=== PATIENT | female | born 1960 | race Caucasian/White ===

== ENCOUNTER 2017-11-27 13:45 | Emergency (ER) | payer OTHER ==
[~2017-11-27 13:45] MED LIST: ISOVUE-370 76%-LOCM 1 ML ONE
[2017-11-27 14:50] LABS: Bilirubin Negative (Negative); Blood, Urine Negative (Negative); Clarity CLEAR (Clear); Glucose, Urine (Dipstick) Negative (Negative); Leukocyte Negative (Negative); Nitrite Negative (Negative); Protein, Urine (Dipstick) Negative (Neg-Trace); Urobilinogen 0.2 mg/dL (0.2-1.0)
[2017-11-27 14:59] LABS: Specific Gravity, Urine 1.003 (1.002-1.036)
[2017-11-27 15:33] LABS: ALT (SGPT) 55 U/L (8-55); AST (SGOT) 110 U/L (5-34); Albumin 4.1 g/dL (3.5-5.0); Alkaline Phosphatase 91 U/L (40-150); Anion Gap 16 mmol/L (10-20); BUN (Urea Nitrogen) Less than 4 mg/dL (9.8-20.1); Bilirubin, Total 0.4 mg/dL (0.2-1.2); CK (CPK) 129 U/L (29-168); Calc. Creatinine Clearance 0 mL/min (70-130); Carbon Dioxide 19 mmol/L (22-29); Chloride 93 mmol/L (98-107); Estimated GFR-MDRD Greater than 90; Globulin 3.7 g/dL (2.4-3.5); Glucose 108 mg/dL (70-105); Lipase 92 U/L (8-78); Protein, Total 7.8 g/dL (6.0-8.3); Sodium 124 mmol/L (136-145)
--- NOTE | 2017-11-27 15:37 | CT ---
CT BRAIN WITHOUT CONTRAST: Date: 11/27/17 INDICATION: History of trauma with falls and beer ingestion. COMPARISON: None. IMPRESSION: No acute intracranial abnormality is evident. There is mild generalized cerebral and cerebellar atrop hy. COMMENTS: There are vascular calcifications involving the carotid arteries. Mastoid air cells are clear. Parana jeanette sinuses are clear. Skull is intact. POS: [facility]
[2017-11-27] MEDS ORDERED: Ketorolac Tromethamine 30 MG/ML VIAL ONE (15:42)
--- NOTE | 2017-11-27 15:42 | CT ---
CT CERVICAL SPINE WITHOUT CONTRAST: Date: 11/27/17 INDICATION: Fall with neck pain. COMPARISON: None. FINDINGS: No acute fracture or subluxation is evident. There is mild spondylosis of the cervical spine. Prevert ebral soft tissues appear within normal limits. Craniocervical junction appears within normal limits. There is mild heterogeneity of the thyroid gland. There is mild central lobular and paraseptal emphy sema involving the lung apices. IMPRESSION: No acute osseous abnormality. POS: [facility]
[2017-11-27 15:52] LABS: Hemoglobin 14.1 g/dL (12.0-16.0); MDiff Complete? YES; Mean Corpuscular HGB CONC 36.7 g/dL (32.0-36.0); Mean Corpuscular Hemoglobin 37.4 pg (27.0-31.0); Platelet Count 157 thou/uL (130-400); RBC Distribution Width 11.3 % (11.5-14.5); Red Blood Cell (RBC) Count 3.77 mill/uL (4.20-5.40); White Blood Cell (WBC) Count 5.3 thou/uL (4.8-10.8)
[2017-11-27 15:53] LABS: Eosinophils 3 % (0-10); Lymphocytes 61 % (21-51); Monocytes 3 % (0-10); Neutrophil 33 % (42-75); PLT Morphology Comment Appears Adequate
--- NOTE | 2017-11-27 16:02 | CT ---
CT OF THE CHEST WITH IV CONTRAST CT OF THE ABDOMEN AND PELVIS WITH IV CONTRAST 11/27/17 INDICATION: Increased weakness and falls. FINDINGS: There is mild scattered emphysema. No contusion, pleural effusion, or pneumothorax is evident. There is small ground glass pulmonary nodule within the left lower lobe on image 49 of series 3 that is 4 m m in size. There is scattered vascular calcification involving the thoracic aorta and coronary arteries. There is fatty infiltration of the liver. The pancreas demonstrates areas of calcifications within the pancreatic body likely reflecting sequel a of prior pancreatitis. The adrenal glands appear within normal limits. No focal renal lesion is evident. The spleen is patricia l in size. No free fluid is evident. No free fluid is demonstrated. Small fibroid seen within the uterine body. Bladder, rectum, and perir ectal soft tissues are unremarkable. There is scattered diverticula involving the colon. There is diffuse osteopenia. There is scattered degenerative and osteoarthritic changes. No definite acute osseous abnormality is evident. IMPRESSION: No acute abnormality. POS: [facility]
== END 2017-11-27 16:45 | disposition left against medical advice (07) ==
LOC: ERS 13:45
DX: E87.1 Hypo-osmolality and hyponatremia (principal); J44.9 Chronic obstructive pulmonary disease, unspecified; F41.9 Anxiety disorder, unspecified; F32.9 Major depressive disorder, single episode, unspecified; F17.210 Nicotine dependence, cigarettes, uncomplicated; I10 Essential (primary) hypertension; Z86.711 Personal history of pulmonary embolism
CPT/HCPCS: 36415; 70450; 71260; 72125; 74177; 80053; 81003; 82550; 83690; 83880; 85025; 87086; 93005; 96374; J1885

== ENCOUNTER 2018-03-20 21:25 | Emergency (ER) | payer SELFPAY ==
[2018-03-20 22:56] LABS: Bilirubin Negative (Negative); Blood, Urine Negative (Negative); Clarity CLEAR (Clear); Glucose, Urine (Dipstick) Negative (Negative); Leukocyte Negative (Negative); Nitrite Negative (Negative); Protein, Urine (Dipstick) Negative (Neg-Trace); Urobilinogen 0.2 mg/dL (0.2-1.0); pH, Urine 6.5 (5.0-9.0)
[2018-03-20 22:59] LABS: Specific Gravity, Urine 1.002 (1.002-1.036)
[2018-03-20] MEDS ORDERED: Multivitamins, Adult 10 ML, Thiamine HCl 100 MG, Folic Acid 1 MG in Dextrose 5 %-0.45 %... IV SCH (23:00)
--- NOTE | 2018-03-20 23:14 | RAD ---
PORTABLE CHEST: HISTORY: Fall. COMPARISON: 11/10/2016 FINDINGS: Heart size is within normal limits. There are atherosclerotic changes of the aorta. The lungs are c lear of infiltrates. No rib fracture is identified. IMPRESSION: No acute findings. POS: [facility]
--- NOTE | 2018-03-20 23:17 | CT ---
CT BRAIN WITHOUT CONTRAST ENHANCEMENT: HISTORY: Fall with head injury. COMPARISON: 11/27/2017 FINDINGS: There is mild ventricular and sulcal prominence for the patient's age. There are no signs of intrace rebral hemorrhage or extraaxial fluid collections. The mastoid air cells and visualized sinuses are clear. IMPRESSION: No acute intracranial abnormalities. POS: [facility]
[2018-03-20 23:32] LABS: ALT (SGPT) 31 U/L (8-55); AST (SGOT) 89 U/L (5-34); Albumin 3.9 g/dL (3.5-5.0); Alcohol 280 mg/dL (Less than 10); Alkaline Phosphatase 103 U/L (40-150); Anion Gap 15 mmol/L (10-20); BUN (Urea Nitrogen) Less than 4 mg/dL (9.8-20.1); Bilirubin, Total 0.4 mg/dL (0.2-1.2); Calc. Creatinine Clearance 0 mL/min (70-130); Carbon Dioxide 25 mmol/L (22-29); Chloride 98 mmol/L (98-107); Estimated GFR-MDRD Greater than 90; Glucose 106 mg/dL (70-105); Potassium 3.7 mmol/L (3.5-5.1); Protein, Total 7.9 g/dL (6.0-8.3); Sodium 134 mmol/L (136-145)
[2018-03-20 23:34] LABS: Hemoglobin 15.5 g/dL (12.0-16.0); Mean Corpuscular HGB CONC 35.7 g/dL (32.0-36.0); Mean Corpuscular Hemoglobin 36.6 pg (27.0-31.0); Mean Platelet Volume 8.4 fL (7.4-10.4); Platelet Count 167 thou/uL (130-400); Red Blood Cell (RBC) Count 4.23 mill/uL (4.20-5.40); White Blood Cell (WBC) Count 5.8 thou/uL (4.8-10.8)
[2018-03-21 00:18] LABS: Band 3 % (5-11); Eosinophils 5 % (0-10); Lymphocytes 46 % (21-51); MDiff Complete? YES; Monocytes 3 % (0-10); Neutrophil 42 % (42-75); Reactive Lymphocytes 1 % (0-10)
== END 2018-03-21 01:43 | disposition home or self-care (01) ==
LOC: ERS 21:25
DX: F10.10 Alcohol abuse, uncomplicated (principal); R29.6 Repeated falls; I10 Essential (primary) hypertension; J44.9 Chronic obstructive pulmonary disease, unspecified; Z86.711 Personal history of pulmonary embolism; F41.9 Anxiety disorder, unspecified; F32.9 Major depressive disorder, single episode, unspecified; F17.210 Nicotine dependence, cigarettes, uncomplicated; Z79.82 Long term (current) use of aspirin; Z79.899 Other long term (current) drug therapy
CPT/HCPCS: 36415; 70450; 71045; 80053; 80307; 81003; 82140; 85025; 87086; 96360; J3411; J7042

== ENCOUNTER 2018-05-15 13:14 | Inpatient (IN) | payer SELFPAY ==
[2018-05-15] MEDS ORDERED: Ondansetron PF 4 MG/2 ML Vial ONE (13:38)
[2018-05-15] MEDS ORDERED: Multivitamins, Adult 10 ML, Thiamine HCl 100 MG, Folic Acid 1 MG in Dextrose 5 %-0.45 %... IV SCH (13:45)
[2018-05-15 13:52] LABS: #Monocytes 0.5 thou/uL (0.11-0.59); #Neutrophils 9.3 thou/uL (1.40-6.50); %Basophils 0.2 % (0.0-1.0); %Eosinophils 0.1 % (0.0-10.0); %Monocytes 4.9 % (0.0-10.0); %Neutrophils 85.9 % (42.0-75.0); Hemoglobin 15.8 g/dL (12.0-16.0); Mean Corpuscular HGB CONC 33.3 g/dL (32.0-36.0); Mean Corpuscular Hemoglobin 34.6 pg (27.0-31.0); Mean Platelet Volume 7.8 fL (7.4-10.4); Platelet Count 205 thou/uL (130-400); RBC Distribution Width 11.7 % (11.5-14.5); Red Blood Cell (RBC) Count 4.56 mill/uL (4.20-5.40); White Blood Cell (WBC) Count 10.8 thou/uL (4.8-10.8)
[2018-05-15 13:53] LABS: Bilirubin Negative (Negative); Blood, Urine Negative (Negative); Clarity CLEAR (Clear); Glucose, Urine (Dipstick) Negative (Negative); Leukocyte Negative (Negative); Nitrite Negative (Negative); Protein, Urine (Dipstick) Negative (Neg-Trace); Specific Gravity, Urine 1.007 (1.002-1.036); Urobilinogen 0.2 mg/dL (0.2-1.0); pH, Urine 6.5 (5.0-9.0)
[2018-05-15 14:12] LABS: ALT (SGPT) 27 U/L (8-55); AST (SGOT) 83 U/L (5-34); Albumin 3.6 g/dL (3.5-5.0); Alkaline Phosphatase 105 U/L (40-150); Anion Gap 19 mmol/L (10-20); BUN (Urea Nitrogen) 5 mg/dL (9.8-20.1); Bilirubin, Total 0.4 mg/dL (0.2-1.2); Calc. Creatinine Clearance 0 mL/min (70-130); Calcium 8.7 mg/dL (7.8-10.44); Carbon Dioxide 26 mmol/L (22-29); Chloride 87 mmol/L (98-107); Estimated GFR-MDRD Greater than 90; Globulin 3.9 g/dL (2.4-3.5); Glucose 122 mg/dL (70-105); Protein, Total 7.5 g/dL (6.0-8.3); Sodium 129 mmol/L (136-145)
[2018-05-15 14:17] LABS: Potassium 2.6 mmol/L (3.5-5.1)
[2018-05-15] MEDS ORDERED: Potassium Chloride 20 MEQ TAB ONE (14:21)
[2018-05-15 14:26] LABS: Lipase 1342 U/L (8-78)
[2018-05-15] MEDS ORDERED: Lorazepam 2 MG/ML VIAL ONE (14:29)
[2018-05-15] MEDS ORDERED: Morphine 4 MG/ML VIAL ONE (14:40)
[2018-05-15] MEDS ORDERED: Ondansetron ODT 4 MG TAB PO PRN (15:09)
[2018-05-15] MEDS ORDERED: Ondansetron PF 4 MG/2 ML Vial IVP PRN (15:09)
[2018-05-15] MEDS ORDERED: Potassium Chloride 20 MEQ/100 ML PREMIX BAG ONE (15:17)
--- NOTE | 2018-05-15 15:29 | CT ---
CT HEAD NONCONTRAST: INDICATIONS: Emergency exam. Head injury related to fall. COMPARISON: 03/20/2018 FINDINGS: There is mild chronic ischemic disease and generalized parenchymal volume loss. No intracranial hemo rrhage, mass effect, midline shift, or ventriculomegaly. The imaged paranasal sinuses are clear. IMPRESSION: 1. No acute intracranial hemorrhage or mass effect. 2. Mild chronic ischemic disease. 3. [id number] mild global atrophy. Correlate clinically. POS: [facility]
[2018-05-15] MEDS ORDERED: Morphine 2 MG/ML SYRINGE SLOW IVP PRN (15:31)
[2018-05-15] MEDS ORDERED: Lorazepam 2 MG/ML VIAL SLOW IVP PRN (15:37)
--- NOTE | 2018-05-15 15:38 | RAD ---
PORTABLE AP CHEST X-RAY: 05/15/2018 HISTORY: Cough. COMPARISON: 03/20/2018 FINDINGS: The cardiac silhouette and pulmonary vasculature are within normal limits for the portable technique of the study. The lungs remain clear. There has been no interval change from the prior exam. IMPRESSION: No acute cardiopulmonary process. POS: [facility]
[2018-05-15 16:26] VITALS: BMI 18.4
--- NOTE | 2018-05-15 16:41 | HP ---
CHIEF COMPLAINT: Abdominal pain. HISTORY OF PRESENT ILLNESS: This patient is a 58-year-old female with a history of chronic alcoholism and a history of recurrent pancreatitis related to her alcoholism. The patient reports that she was in her usual state of health until this morning around 6:00, when she started experiencing significant abdominal pain, radiating to her back. The patient reports this is similar to the episodes of pancreatitis she has had in the past. She has had vomiting throughout the day today as well, although she has apparently been able to drink 3 beers today before presenting to the hospital around 1:00 to 1:30. She reports her bowels are a bit loose as well. She denies any fever, but feels generally cold. She reports she has not been eating very well of late. She also has some chronic shortness of breath and some dizziness. She reports multiple falls, that she fell 2 to 3 days ago and hit her head in the left supraorbital area. Reports no pain associated with that. REVIEW OF SYSTEMS: All other systems were reviewed and all pertinent positives and negatives noted in the history of present illness. PAST MEDICAL HISTORY: Notable for pancreatitis, COPD, hypertension, pulmonary embolus, alcoholism. PAST SURGICAL HISTORY: None. FAMILY HISTORY: Unknown as the patient is adopted. SOCIAL HISTORY: The patient smokes 1-1/2 packs per day. She drinks 6 to 10 beers per day, although she is not really sure how much she actually drinks and she states it has been a long time since she has gone 24 hours without drinking alcohol. She denies drugs. She is not , but has a significant other named Carmen, who is present with her today. She would like him to be her surrogate decision maker and she is a DNAR. Her PCP is Leyla Grande. ALLERGIES: PENICILLIN. CURRENT MEDICATIONS: 1. Amlodipine 5 mg daily. 2. Doxycycline 100 mg b.i.d. 3. Prednisone 50 mg daily. 4. Excedrin Extra Strength p.r.n. Please note, the patient has only recently been put on doxycycline and prednisone from her PCP for "flu symptoms." PHYSICAL EXAMINATION: VITAL SIGNS: Pulse 93, respirations 16, O2 saturations 93% on room air, BP 134/81, and temperature was 98.2 oral. GENERAL APPEARANCE: The patient appears to be older than her stated age. She has received a dose of Ativan, is very minimally groggy. She is noted to have some resolving ecchymoses over the left eyebrow and possibly some in the right eyelid, and she has a small skin tear on the right forearm. The patient is interactive. She is apparently not over-enthused about being here, participating with the interview portion. She is generally thin. HEENT: PERRL, no OP lesions. NECK: Supple and symmetric without lymphadenopathy. HEART: Regular rate and rhythm without murmurs, gallops, or rubs. LUNGS: Slightly diminished but clear bilaterally without wheezes or rales. She does have a bit of cough, which is rattling at times, but modest. ABDOMEN: Tender across the entire epigastrium to the mid abdomen. There is minimal voluntary guarding. Bowel sounds are present. No masses are noted. EXTREMITIES: Reveal no edema. No cyanosis or clubbing. SKIN: Only notable for the lesions noted above, otherwise, it is warm and dry. LABORATORY DATA: White count 10.8, hemoglobin 15.8, platelets 205. Sodium 129, potassium 2.6, chloride 87, BUN 5, creatinine 0.64, glucose 122, AST 83, ALT is 27, albumin 3.6, lipase is 1342. Urinalysis, negative. Flu screen, negative. Chest x-ray appears generally clear. CT of the head shows chronic atrophy but no acute findings. IMPRESSION AND PLAN: 1. Apparent acute pancreatitis. The patient has a history of recurrent pancreatitis. She has not had a lot in the way of imaging in the past. We will go ahead and get a CT scan to confirm some evidence of the pancreatitis in addition to the elevated lipase. We will keep her n.p.o., give her some IV fluids, and p.r.n. pain medications and antiemetics. 2. Alcoholism. We will provide p.r.n. benzodiazepines for the patient should she develop any withdrawal type symptoms. If that does occur, she may need to be on some scheduled Librium. 3. Hyponatremia, likely due to beer potomania. It is modest and her baseline is typically below normal anyway. We will go ahead and just rehydrate her and see how she responds to that. 4. Hypokalemia. She has received oral and IV supplementation in the ER. We will recheck that in the morning. 5. Macrocytosis secondary to chronic alcohol intake. We will continue with the banana bag, and when she is capable, switch over to p.o. B vitamins. 6. History of hypertension, mild. At this point, we will continue to monitor. 7. History of pulmonary embolus. We will keep her on SCDs until we get the CT abdomen. At some point, she can likely switch over to Lovenox if she is here that long. Job ID: [id number]
--- NOTE | 2018-05-15 18:43 | CT ---
CT ABDOMEN WITHOUT CONTRAST: HISTORY: Pancreatitis. Nausea. Vomiting. FINDINGS: Absence of IV contrast reduces the sensitivity of the exam, particularly for evaluation of solid orga ns. Oral contrast was administered. There is mild infiltrate versus atelectatic change in the right middle lobe. No pleural effusions ar e seen. No calcified gallstones are identified. The liver demonstrates decreased attenuation, melissa red to the spleen, consistent with fatty infiltration. There are calcifications in the pancreas. Pe ripancreatic inflammatory changes are present. No free air or free fluid is seen in the abdomen. There is a 5 mm nephrocalcinosis in the left renal cortex. No calculi are seen in the right kidney o r visualized portions of the ureters on either side. No hydroureteronephrosis is noted on either evelyn e. There are vascular calcifications without evidence of aneurysmal dilatation of the abdominal aort a. The small bowel loops are not abnormally dilated. There are degenerative changes in the spine. IMPRESSION: 1. Fatty liver. 2. Left nephrocalcinosis. 3. Iclvc-gx-jgcbikp pancreatitis. POS: [facility]
[2018-05-15] MEDS: Potassium Chloride 20 MEQ in Premix Bag 1 BAG IVPB SCH ×2 (19:11→20:10)
[2018-05-15] MEDS: Nicotine 7 MG PATCH TOP SCH (19:12)
[2018-05-15] MEDS: Nicotine 21 MG PATCH TD SCH (19:12)
[2018-05-15] MEDS: Famotidine/PF 20 mg/2ml Vial SLOW IVP SCH (20:11)
[2018-05-15] MEDS: Sodium Chloride 0.9% 1,000 ML IV SCH (23:45)
[2018-05-16] MEDS ORDERED: Diazepam 5 MG TAB PO PRN (00:58)
[2018-05-16] MEDS ORDERED: Diazepam 5 MG TAB PO SCH (01:00)
[2018-05-16] MEDS ORDERED: Thiamine HCl 200 MG/2 ML VIAL IM SCH (01:00)
[2018-05-16] MEDS: Sodium Chloride 0.9% 1,000 ML IV SCH ×3 (04:30→21:47)
[2018-05-16 05:22] LABS: #Lymphocytes 1.1 thou/uL (1.20-3.40); #Monocytes 0.6 thou/uL (0.11-0.59); #Neutrophils 5.3 thou/uL (1.40-6.50); %Basophils 0.1 % (0.0-1.0); %Eosinophils 0.2 % (0.0-10.0); %Lymphocytes 16.2 % (21.0-51.0); %Monocytes 8.2 % (0.0-10.0); %Neutrophils 75.4 % (42.0-75.0); Hemoglobin 14.4 g/dL (12.0-16.0); Mean Corpuscular HGB CONC 33.6 g/dL (32.0-36.0); Mean Corpuscular Hemoglobin 34.8 pg (27.0-31.0); Mean Platelet Volume 7.7 fL (7.4-10.4); Platelet Count 146 thou/uL (130-400); RBC Distribution Width 11.6 % (11.5-14.5); Red Blood Cell (RBC) Count 4.15 mill/uL (4.20-5.40)
[2018-05-16] MEDS ORDERED: Ibuprofen 200 MG TAB PO PRN (05:35)
[2018-05-16 05:51] LABS: Anion Gap 16 mmol/L (10-20); BUN (Urea Nitrogen) Less than 4 mg/dL (9.8-20.1); Calc. Creatinine Clearance 80 mL/min (70-130); Calcium 7.9 mg/dL (7.8-10.44); Carbon Dioxide 25 mmol/L (22-29); Chloride 85 mmol/L (98-107); Estimated GFR-MDRD Greater than 90; Glucose 98 mg/dL (70-105); Lipase 535 U/L (8-78); Sodium 123 mmol/L (136-145)
[2018-05-16 05:57] LABS: Potassium 2.9 mmol/L (3.5-5.1)
[2018-05-16] MEDS ORDERED: Potassium Chloride 20 MEQ TAB PO SCH (07:00)
[2018-05-16] MEDS: cefTRIAXone\\ROCEPHIN 1 GM in Sodium Chloride 0.9% 100 ML IVPB SCH (07:31)
[2018-05-16] MEDS: Famotidine/PF 20 mg/2ml Vial SLOW IVP SCH ×2 (08:58→21:47)
[2018-05-16] MEDS: Folic Acid 1 MG TAB PO SCH (08:58)
[2018-05-16] MEDS: Multivitamin W/ Minerals 1 TAB PO SCH (08:58)
--- NOTE | 2018-05-16 08:59 | PRG ---
DATE OF SERVICE: 05/16/2018 SUBJECTIVE: The patient reports she is not significantly better. Reports she had another episode of vomiting yesterday. Continues to have abdominal pain, which is similar to yesterday. The patient had a fall yesterday. I reviewed the nurse's notes and the findings. The patient reports she got up to use bedside commode and simply was weak and went to the ground. She states she generally hurt all over , but did not have any specific injury to report. OBJECTIVE: VITAL SIGNS: Temperature max is 100.9, most recent 100.8, pulse 84, respirations 16, O2 saturation 96% on room air, blood pressure 124/68. GENERAL APPEARANCE: The patient appears older than stated age. She continues to have a very flat affect and minimal interest in conversation or interaction. HEENT: Her left forehead ecchymoses actually appears better than it did even yesterday. HEART: Regular rate and rhythm without murmurs. LUNGS: Clear to auscultation bilaterally without wheezes or rales. ABDOMEN: Persistent upper abdominal tenderness to palpation, although she appears to be reacting less so than she did yesterday. Bowel sounds are present. EXTREMITIES: Show no edema. LABORATORY DATA: White count 7.0, hemoglobin 14.4, MCV 104. Sodium 123, potassium 2.9, chloride 85, BUN less than 4, creatinine 0.56. Lipase is 535. Her blood alcohol level from yesterday was 103. CT abdomen from yesterday confirms acute on chronic pancreatitis findings. IMPRESSION AND PLAN: 1. Acute on chronic pancreatitis. The patient remains n.p.o. with fluids and pain management. 2. Alcoholism. The patient so far reports no anxiety or symptoms of withdrawal. She is not demonstrating any of those symptoms either. She has the ASE protocol in place. 3. Tobacco abuse. Nicotine patch in place. 4. Hyponatremia, actually slightly worse with fluids. Likely a combination of beer potomania and poor protein intake. Sodium is likely not going to get substantially better until she is able to have better protein intake. That can be done now, as she is n.p.o. because of the pancreatitis. We will go ahead and consult Nephrology for additional assistance with that. 5. Hypokalemia. Slightly better than yesterday. Continuing to replete. 6. Falls. The patient had falls prior to coming to the hospital. She fell again yesterday. She did have alcohol in her system. She had p.r.n. benzodiazepines. I believe she received some in the emergency department. It is unclear what the source of her falls are, but we will avoid anticoagulation for DVT prophylaxis in light of the falls. Repeat CT of the head was performed last night and was apparently negative for any acute findings, although official transcribed report is not yet available. We will ask Physical Therapy to see the patient. This could be multifactorial in light of the patient's alcoholism. She could have some alcohol-related neuropathy could be related to her hyponatremia or something unrelated. Depending on the patient's PT evaluation, we may consider further therapy versus Neurology evaluation. 7. Protein-calorie malnutrition, likely moderate. The patient is very thin. She also has some evidence of early breakdown on her sacral area as evidenced by the Wound Care team photos. Again, the patient is n.p.o. at this point. Job ID: [id number] [facility]
--- NOTE | 2018-05-16 09:04 | CT ---
PRELIMINARY REPORT/[facility]/EMERGENTY AFTER-HOURS PROCEDURE CT Head Without Contrast EXAM DATE/TIME: 05/16/2018 12:38 AM CLINICAL HISTORY: 58 years old, female; Injury or trauma; Fall; Initial encounter; Blunt trauma (contusions or hematoma s); Without loss of consciousness; Patient HX: PT fell at 2348 in hospital room and reports hitting h er head. TECHNIQUE: Axial computed tomography images of the head/brain without contrast. COMPARISON: No relevant prior studies available. FINDINGS: Brain: Scattered areas of hypoattenuation, likely chronic small vessel ischemic change, demyelination , or gliosis. No mass, hemorrhage, or acute infarction. Ventricles: Normal. Bones/joints: Normal. Sinuses: Right maxillary sinus disease. Mastoid air cells: Normal as visualized. Soft tissues: Unremarkable. Vasculature: Atherosclerotic vascular calcifications. IMPRESSION: No acute intracranial abnormality. Thank you for allowing us to participate in the care of your patient. Dictated and Authenticated by: Scott Ferris MD 05/16/2018 12:59 AM Central Time ([place] & [place]) FINAL REPORT EMERGENCY AFTER HOURS CT BRAIN WITHOUT CONTRAST: Date: 05/16/18 COMPARISON: 05/15/18. FINDINGS/IMPRESSION: I agree with the findings and impression given in the preliminary report per [facility] physician. No evide nce of acute intracranial abnormality. POS: [facility]
[2018-05-16] MEDS: Nicotine 21 MG PATCH TD SCH (15:39)
[2018-05-16] MEDS: Nicotine 7 MG PATCH TOP SCH (15:39)
[2018-05-16 19:11] LABS: 24 Hr Sodium 263.9 mmol/24h (40-220)
[2018-05-16 21:13] LABS: Anion Gap 18 mmol/L (10-20); BUN (Urea Nitrogen) 5 mg/dL (9.8-20.1); Calc. Creatinine Clearance 83 mL/min (70-130); Calcium 7.9 mg/dL (7.8-10.44); Carbon Dioxide 25 mmol/L (22-29); Chloride 89 mmol/L (98-107); Estimated GFR-MDRD Greater than 90; Glucose 89 mg/dL (70-105); Sodium 129 mmol/L (136-145)
[2018-05-16 21:16] LABS: Potassium 2.7 mmol/L (3.5-5.1)
[2018-05-16] MEDS ORDERED: Potassium Chloride 40 MEQ in Sodium Chloride 0.9% 250 ML 250 ML IVPB SCH (21:30)
--- NOTE | 2018-05-16 23:35 | CON ---
DATE OF CONSULTATION: 05/16/2018 REASON FOR CONSULTATION: Hyponatremia. REASON FOR ADMISSION: Abdominal pain. HISTORY OF PRESENT ILLNESS: This is a 58-year-old female with history of pancreatitis, COPD, and hypertension, came to the hospital with above complaints of abdominal pain and was found to have hyponatremia. She was started on IV fluids , but sodium level did drop from 129 to 123, potassium level was also and she is getting replaced. The patient was having nausea on admission, it is resolved now. The patient does have increase intake of beer at home. PAST MEDICAL HISTORY: Positive for pancreatitis, COPD, hypertension, pulmonary embolism, and alcoholism. PAST SURGICAL HISTORY: None. HOME MEDICATIONS: 1. Amlodipine. 2. Doxycycline. 3. Prednisone. 4. Excedrin. SOCIAL HISTORY: No smoking or illicit drug abuse. She drinks 6 to 10 beers per day. FAMILY HISTORY: No history of any kidney disease. REVIEW OF SYSTEMS: CONSTITUTIONAL: Negative for weight loss or gain, ability to conduct usual activities. SKIN: Negative for rash, itching. EYES: Negative for double vision, pain. ENT/MOUTH: Negative for nose bleeding, neck stiffness, pain, tenderness. CARDIOVASCULAR: Negative for palpitations, dyspnea on exertion, orthopnea. RESPIRATORY: Negative for shortness of breath, wheezing, cough, hemoptysis, fever or night sweats. GASTROINTESTINAL: Negative for poor appetite, abdominal pain, heartburn, nausea , vomiting, constipation, or diarrhea. GENITOURINARY: Negative for urgency, frequency, dysuria, nocturia. MUSCULOSKELETAL: Negative for pain, swelling. NEUROLOGIC/PSYCHIATRIC: Negative for anxiety, depression. ALLERGY/IMMUNOLOGIC: Negative for skin rash, bleeding tendency. PHYSICAL EXAMINATION: GENERAL: This is a well-built female, in no apparent distress. VITAL SIGNS: Temperature 98.2, pulse 103, respirations 16, blood pressure 153/ 79. HEENT: Atraumatic and normocephalic. Oral mucosa is moist. NECK: Supple. CVS: S1 and S2 heard. Rate and rhythm regular. RESPIRATORY: Clear. GASTROINTESTINAL: Abdomen is soft. MUSCULOSKELETAL: No tenderness. No edema. DERMATOLOGIC: No skin rash. NEUROLOGIC: Alert and awake. PSYCHIATRIC: Normal mood and affect. LABORATORY DATA: Hemoglobin is 14.4. Potassium is 3.9, sodium is 123. ASSESSMENT AND PLAN: 1. Hyponatremia, slightly a combination of hypovolemia and beer drinker's potomania. We will see her sodium level, she is on the lower side on review of the old records. Plan is to continue IV fluids. We will repeat sodium level and potassium level. 2. Hypokalemia, replaced. 3. Elevated lipase. 4. Pancreatitis. 5. Edema, controlled. 6. Hypertension, stable. 7. Repeat sodium and further decision will be made on the level of the sodium. Continue IV fluids for now. Job ID: [id number] [facility]
[2018-05-17] MEDS ORDERED: Potassium Chloride 20 MEQ in Premix Bag 1 BAG IVPB SCH (01:30)
[2018-05-17] MEDS ORDERED: Diazepam 5 MG TAB PO PRN (04:00)
[2018-05-17 04:46] LABS: Anion Gap 17 mmol/L (10-20); BUN (Urea Nitrogen) 5 mg/dL (9.8-20.1); Calc. Creatinine Clearance 86 mL/min (70-130); Calcium 7.7 mg/dL (7.8-10.44); Carbon Dioxide 22 mmol/L (22-29); Chloride 92 mmol/L (98-107); Estimated GFR-MDRD Greater than 90; Glucose 72 mg/dL (70-105); Lipase 455 U/L (8-78); Potassium 3.5 mmol/L (3.5-5.1); Sodium 127 mmol/L (136-145)
[2018-05-17 04:48] LABS: Magnesium 0.9 mg/dL (1.6-2.6)
[2018-05-17] MEDS ORDERED: Magnesium Sulfate 4 GM in Sodium Chloride 0.9% 250 ML 250 ML IVPB SCH (05:15)
[2018-05-17 05:36] LABS: #Basophils 0.1 thou/uL (0.0-0.2); #Eosinphils 0.1 thou/uL (0.0-0.7); #Lymphocytes 1.6 thou/uL (1.20-3.40); #Monocytes 0.5 thou/uL (0.11-0.59); #Neutrophils 3.8 thou/uL (1.40-6.50); %Lymphocytes 25.8 % (21.0-51.0); %Monocytes 8.8 % (0.0-10.0); %Neutrophils 63.4 % (42.0-75.0); Mean Corpuscular HGB CONC 34.6 g/dL (32.0-36.0); Mean Corpuscular Hemoglobin 35.3 pg (27.0-31.0); Mean Platelet Volume 8.4 fL (7.4-10.4); Platelet Morphology Comment Appears Adequate; RBC Distribution Width 11.7 % (11.5-14.5); Red Blood Cell (RBC) Count 3.97 mill/uL (4.20-5.40)
[2018-05-17] MEDS: cefTRIAXone\\ROCEPHIN 1 GM in Sodium Chloride 0.9% 100 ML IVPB SCH (05:46)
[2018-05-17] MEDS ORDERED: Magnesium 2 GM/50 ML 2 GM in Premix Bag 1 BAG IVPB SCH (08:30)
[2018-05-17] MEDS ORDERED: Potassium Chloride 20 MEQ TAB PO SCH (08:45)
[2018-05-17] MEDS ORDERED: Magnesium Oxide 400 MG TAB PO SCH (09:00)
--- NOTE | 2018-05-17 09:01 | PRG ---
DATE OF SERVICE: 05/17/2018 SUBJECTIVE: The patient reports that she is tired. Says she did not sleep all night because of various nursing intervention, lab draws, etc. She feels like her pain is slightly better and wants to know when she needs to go home. OBJECTIVE: VITAL SIGNS: Temperature 97.9, pulse 82, respirations 16, O2 saturation 91% to 93% on room air, and BP 129/66. GENERAL APPEARANCE: The patient appears slightly older than stated age. She is sleepy, but easily awaken. She appears to be upset and angry as her general baseline disposition. HEART: Regular rate and rhythm. LUNGS: Clear, but diminished bilaterally with no wheezes or rales. ABDOMEN: She has some persistent epigastric tenderness to palpation with no guarding and appears to be improving. EXTREMITIES: No edema. NEUROLOGIC: The patient has no evidence of agitation. She has normal spontaneous movement of all extremities. IMPRESSION AND PLAN: 1. Acute on chronic pancreatitis secondary to alcoholism. The patient remains n.p.o. with ice chips, but I will go ahead and advance her to clear liquids today. We will continue IV fluids and pain management. Her lipase is slightly improving as is her physical exam. 2. Alcoholism. So far, the patient is not showing significant evidence of withdrawal. Continuing with p.r.n. benzodiazepines as needed. 3. Tobacco abuse. Nicotine patch in place. 4. Hyponatremia secondary to potomania and poor protein intake. We will defer to Nephrology's input. 5. Hypokalemia, better. 6. Hypomagnesemia. IV repletion. Recheck in the morning. 7. Recent falls. Physical Therapy has been consulted. 8. Protein calorie malnutrition. I am advancing to clear liquids today. Hopefully, I can get her back taking p.o. We will have dietitian see her at that point, depending on her intake. 9. Disposition. Reiterated to the patient that she is here on her own volition and she is free to leave any time she feels she needs to do so, but in the meantime, if we are going to be treating her, we are going to continue to give fluids, check labs, and do the necessary interventions. Certainly, she has opportunity to dictate our care goes. 10. Forehead hematoma. Essentially resolved. 11. Stage 1 sacral decubitus secondary to poor nutrition and poor mobility. Nursing care for that. Job ID: [id number]
[2018-05-17] MEDS: Morphine 4 MG/ML VIAL SLOW IVP PRN (09:21)
[2018-05-17] MEDS: Multivitamin W/ Minerals 1 TAB PO SCH (09:23)
[2018-05-17] MEDS: Folic Acid 1 MG TAB PO SCH (09:23)
[2018-05-17] MEDS: Famotidine/PF 20 mg/2ml Vial SLOW IVP SCH ×2 (09:23→21:16)
[2018-05-17] MEDS: Sodium Chloride 0.9% 1,000 ML IV SCH (11:34)
[2018-05-17] MEDS: Nicotine 21 MG PATCH TD SCH (14:54)
[2018-05-17] MEDS: Nicotine 7 MG PATCH TOP SCH (14:55)
--- NOTE | 2018-05-17 19:12 | PRG ---
DATE OF SERVICE: 05/17/2018 SUBJECTIVE: Patient was seen and examined at bedside and overnight events noted. Patient denies shortness of breath or cramps or chest pain or palpitation. No Nausea or vomiting or diarrhea or fever or chills. OBJECTIVE: GENERAL: The patient is thin build female, no apparent distress. VITAL SIGNS: Temperature 97.7, pulse 83, respirations 16, blood pressure is 139/ 77. Musculoskeletal : No tenderness, No edema HEENT: Atraumatic normocephalic Neck: Supple Cardiovascular: S1S2 heard, Rate and rhythm regular Respiratory: Clear to auscultation Gastrointestinal: Abdomen is soft Dermatologic : No skin rash Neurologic: Alert and awake and oriented X3 No focal neurologic deficits. Moving all the extremities. Psychiatric: Mood and affect normal LABS: Sodium 137, potassium 3.5, BUN is 5, creatinine 0.5. Magnesium is 0.9. ASSESSMENT AND PLAN: 1. Hyponatremia. Sodium level is stable. She runs low on low 130s, most likely beer drinker's potomania. Limit fluid intake. We will stop IV fluids. 2. Hypokalemia, replaced. We will monitor. 3. Hypomagnesemia, replaced. 4. Hypertension, stable. 5. Edema, controlled. 6. We will stop IV fluids. Continue on fluid restriction and we will follow. Check sodium in the morning. Job ID: [id number] [facility]
[2018-05-18] MEDS: Morphine 4 MG/ML VIAL SLOW IVP PRN (00:34)
[2018-05-18 04:36] LABS: Anion Gap 14 mmol/L (10-20); BUN (Urea Nitrogen) 4 mg/dL (9.8-20.1); Calc. Creatinine Clearance 80 mL/min (70-130); Carbon Dioxide 25 mmol/L (22-29); Chloride 91 mmol/L (98-107); Estimated GFR-MDRD Greater than 90; Glucose 118 mg/dL (70-105); Sodium 127 mmol/L (136-145)
[2018-05-18 04:40] LABS: #Basophils 0.1 thou/uL (0.0-0.2); #Eosinphils 0.1 thou/uL (0.0-0.7); #Lymphocytes 1.9 thou/uL (1.20-3.40); #Monocytes 0.6 thou/uL (0.11-0.59); #Neutrophils 2.2 thou/uL (1.40-6.50); %Basophils 1.8 % (0.0-1.0); %Eosinophils 1.9 % (0.0-10.0); %Lymphocytes 39.5 % (21.0-51.0); %Monocytes 11.6 % (0.0-10.0); %Neutrophils 45.2 % (42.0-75.0); Hemoglobin 13.6 g/dL (12.0-16.0); Mean Corpuscular HGB CONC 34.2 g/dL (32.0-36.0); Mean Corpuscular Hemoglobin 35.6 pg (27.0-31.0); Mean Platelet Volume 8.5 fL (7.4-10.4); Platelet Count 100 thou/uL (130-400); Platelet Morphology Comment Appears Decreased; RBC Distribution Width 11.7 % (11.5-14.5); Red Blood Cell (RBC) Count 3.82 mill/uL (4.20-5.40); White Blood Cell (WBC) Count 4.9 thou/uL (4.8-10.8)
[2018-05-18] MEDS: cefTRIAXone\\ROCEPHIN 1 GM in Sodium Chloride 0.9% 100 ML IVPB SCH (05:40)
[2018-05-18] MEDS ORDERED: Potassium Chloride 40 MEQ in Premix Bag 1 BAG IVPB SCH (07:45)
[2018-05-18] MEDS ORDERED: Sodium Chloride 0.9% 1,000 ML IV SCH (08:00)
[2018-05-18] MEDS: Famotidine/PF 20 mg/2ml Vial SLOW IVP SCH (08:10)
[2018-05-18] MEDS: Multivitamin W/ Minerals 1 TAB PO SCH (08:10)
[2018-05-18] MEDS: Folic Acid 1 MG TAB PO SCH (08:10)
[2018-05-18 09:52] VITALS: BP 152/77; TEMP 97.9
[2018-05-18] MEDS: Potassium Chloride 20 MEQ in Premix Bag 1 BAG IVPB SCH ×2 (10:20→12:25)
--- NOTE | 2018-05-18 17:02 | PRG ---
DATE OF SERVICE: 05/18/2018 SUBJECTIVE: Patient was seen and examined at bedside and overnight events noted. Patient denies any shortness of breath or chest pain or palpitation. No history of nausea or vomiting or diarrhea or fever or chills or cramps. OBJECTIVE: GENERAL: This is a thin-built female in no apparent distress. VITAL SIGNS: Temperature 97.9. Heart rate 77. Respiratory rate 18. Blood pressure 152/77. HEENT: Atraumatic, normocephalic. Oral mucosa is moist NECK: Supple. CARDIOVASCULAR: S1, S2 heard. Rate and rhythm regular. RESPIRATORY: Clear to auscultation. GASTROINTESTINAL: Abdomen is soft. MUSCULOSKELETAL: No tenderness. No edema. DERMATOLOGIC: No skin rash. NEUROLOGIC: Alert and awake and oriented X3. No focal neurologic deficits. Moving all the extremities. PSYCHIATRIC: Mood and affect normal. LABORATORY DATA: Sodium is 127, potassium is 3.0, BUN is 4, and creatinine is 0.5. ASSESSMENT AND PLAN: 1. Hyponatremia, most likely from beer-induced potomania. The patient was advised to limit fluid intake, but is noncompliant. 2. Noncompliance, hypokalemia with hypomagnesemia, most likely nutritional deficiency from beer drinking. 3. Hypertension. 4. Edema. Prognosis is guarded. The patient was advised to follow up with the clinic closely and limit fluid intake to 1500 mL or less. We will follow. Job ID: [id number]
[2018-05-18] MEDS ORDERED: Famotidine 20 MG TAB PO SCH (21:00)
--- NOTE | 2018-05-19 14:43 | DIS ---
DATE OF ADMISSION: 05/15/2018 DATE OF DISCHARGE: 05/18/2018 DISCHARGE DIAGNOSES: 1. Acute on chronic pancreatitis secondary to alcoholism. 2. Alcoholism. 3. Tobacco abuse. 4. Hyponatremia, presumed to be secondary to beer potomania and poor dietary intake. 5. Hypokalemia. 6. Hypomagnesemia. 7. Recent falls. 8. Protein-calorie malnutrition. 9. Depression. 10. Forehead hematoma present on admission, resolved. 11. Sacral decubitus, appears to be early, likely stage I, secondary to poor nutrition and poor mobility. HISTORY OF PRESENT ILLNESS: This patient is a 58-year-old female, who presented via the emergency department with complaints of abdominal pain. This patient has a history of longstanding alcoholism with recurrent chronic pancreatitis. The patient continues to drink routinely and in fact had three beers on the day of admission in spite of having abdominal pain and reported vomiting. The patient admitted that she had not been eating well at all and that she had some chronic dizziness and some shortness of breath. She had fallen 2 to 3 days prior and had a left supraorbital frontal area hematoma, which appeared to be in stages of healing well with some other minimal superficial abrasions. The patient carries a history of COPD, hypertension, and prior pulmonary embolus. The patient also continued to smoke a pack and a half of cigarettes per day. The patient was unable to specifically quantify how much beer she drinks, and she was generally an unwilling participant in most of the history taking process, but she did admit to at least 6 to 10 beers per day. The patient's initial exam noted some epigastric tenderness in a patient who appeared older than her stated age. She appeared to be very thin with some sarcopenia. She also had a very flat affect and appeared generally unhappy. LABORATORY DATA: Her labs noted a white count of 10.8. BUN and creatinine were normal. AST was 83 and ALT was 27. Her lipase was 1342. IMAGING STUDIES: Chest x-ray was clear. CT of the head showed chronic atrophy , but no acute findings. HOSPITAL COURSE: The patient was admitted to the hospital with recurrence of acute on chronic pancreatitis. She was made n.p.o. and kept on IV hydration with p.r.n. pain medications and antiemetics. The patient subsequently did slowly have improvement of her discomfort and she was able to progress to clear liquids and ultimately to a regular diet, which she was able to tolerate. The patient had a hyponatremia noted with an initial sodium of 129. She was felt to be somewhat protein calorie malnourished likely to a moderate degree given her continued alcohol consumption and poor p.o. intake of food. She was seen in consultation by Nephrology, who monitored her as well. The patient's baseline sodium had typically been low and she maintained a level close to her typical baseline. Alcoholism. The patient actually had elevated alcohol level at the time of her admission. She had been drinking that morning. She reported that she could not recall the last time she had gone 24 hours without drinking. However, the patient did not demonstrate any significant evidence of physical withdrawal while in the hospital. She did have p.r.n. benzodiazepines available to her, and at one point, was placed on the CORNEL protocol. The patient's electrolytes were off including significant hypokalemia and hypomagnesemia, which were addressed with IV repletion. The patient was felt to have depression. She was often angry and somewhat withdrawn at times. I did prenatal genetic counselor her regarding this concern. The patient was certainly accepting of that and felt that was indeed accurate. We did talk about the need to follow up with the PCP and the possibility that she could benefit from the medications that can help her situation, although this needed to be guided very carefully given her alcohol use. Tobacco abuse. The patient was maintained with nicotine patches as needed and she did well without that. PHYSICAL EXAMINATION: VITAL SIGNS: On the day of discharge, the patient's temperature is 97.9, pulse 77, respirations 18, O2 saturation 95% on room air, and blood pressure 152/77. GENERAL: The patient appeared persistently thin, generally flat, and unhappy in appearance. HEART: Regular rate without murmurs. LUNGS: Clear. ABDOMEN: Soft, nontender, and nondistended. EXTREMITIES: Without edema. DISCHARGE INSTRUCTIONS: The patient was counseled at length regarding her alcohol and tobacco abuse and the need to follow up with established PCP in order to continue to pursue working through this. She did not have evidence of significant physical withdrawal and she certainly may be self medicating somewhat through some depression, which will need to be addressed as well. DISPOSITION: The patient is discharged to home. DISCHARGE MEDICATIONS: She is to be on doxycycline 100 mg daily, amlodipine 5 mg daily, and prednisone 5 mg daily. ACTIVITY: As tolerated. DIET: She is on no dietary restriction. She was recommended to have daily supplemental shakes and avoid alcohol and avoid high levels of clear liquid intake. FOLLOWUP: She is to follow up with Leyla Grande in [place] in 7 days. She was seen in consultation by the dietitian and had recommendations for improved dietary intake. She is encouraged to return to the emergency department should she have any problems prior to the time of her followup. Total time spent in discharge activities, including [id number] time with the patient and coordinating care and follow-up was 36 min. Job ID: [id number] MTDD
--- NOTE | 2018-05-21 20:18 | EKG ---
Test Reason : EMERGENCY EXAM Blood Pressure : / mmHG Vent. Rate : 089 BPM Atrial Rate : 089 BPM P-R Int : 150 ms QRS Dur : 080 ms QT Int : 462 ms P-R-T Axes : 072 038 056 degrees QTc Int : 562 ms Normal sinus rhythm Possible Left atrial enlargement Septal infarct , age undetermined Abnormal ECG Confirmed by MELISSA DAMON, SIOMARA ([id number]), website/blog editor VALERIA TYSON ([id number]) on 05/21/2018 8:17:45 PM Referred By: MELISSA Confirmed By:SIOMARA TORRES MD
== END 2018-05-18 16:15 | disposition home or self-care (01) | DRG 439 ==
LOC: ERS 13:14 → 2SW 16:17 → OBSVTOIN 16:17 → ONC 05-16 18:53
PROVIDERS: ADMIT Internal Medicine; ATTEND Internal Medicine
DX: K85.20 Alcohol induced acute pancreatitis without necrosis or infection (principal); E87.1 Hypo-osmolality and hyponatremia; E44.0 Moderate protein-calorie malnutrition; Z68.1 Body mass index [BMI] 19.9 or less, adult; L89.151 Pressure ulcer of sacral region, stage 1; E83.42 Hypomagnesemia; K86.0 Alcohol-induced chronic pancreatitis; F10.20 Alcohol dependence, uncomplicated; E87.6 Hypokalemia; I10 Essential (primary) hypertension; R60.9 Edema, unspecified; F17.210 Nicotine dependence, cigarettes, uncomplicated; F32.9 Major depressive disorder, single episode, unspecified; S00.83XA Contusion of other part of head, initial encounter; J44.9 Chronic obstructive pulmonary disease, unspecified; Z91.19 Patient's noncompliance with other medical treatment and regimen; Z86.711 Personal history of pulmonary embolism; Z79.52 Long term (current) use of systemic steroids; Z79.899 Other long term (current) drug therapy; W18.30XA Fall on same level, unspecified, initial encounter
CPT/HCPCS: 36415; 70450; 71045; 74150; 80048; 80053; 80307; 81003; 83690; 83735; 83935; 84300; 85025; 87040; 87086; 87804; 90471; 90686; 93005; 96365; 96366; 96368; 96375; G0008; J0696; J2060; J2270; J2405; J3411; J3475; J3480; J7042; J7050; S0028

== ENCOUNTER 2018-07-15 15:59 | Emergency (ER) | payer SELFPAY ==
[2018-07-15 18:22] LABS: #Basophils 0.1 thou/uL (0.0-0.2); #Eosinphils 0.2 thou/uL (0.0-0.7); #Neutrophils 5.9 thou/uL (1.40-6.50); %Basophils 0.7 % (0.0-1.0); %Eosinophils 1.7 % (0.0-10.0); %Lymphocytes 29.3 % (21.0-51.0); %Monocytes 9.8 % (0.0-10.0); %Neutrophils 58.4 % (42.0-75.0); Hemoglobin 13.5 g/dL (12.0-16.0); Mean Corpuscular HGB CONC 34.4 g/dL (32.0-36.0); Mean Corpuscular Hemoglobin 34.3 pg (27.0-31.0); Mean Corpuscular Volume 99.8 fL (78.0-98.0); Mean Platelet Volume 7.4 fL (7.4-10.4); Platelet Count 294 thou/uL (130-400); RBC Distribution Width 12.3 % (11.5-14.5); Red Blood Cell (RBC) Count 3.95 mill/uL (4.20-5.40); White Blood Cell (WBC) Count 10.1 thou/uL (4.8-10.8)
[2018-07-15 18:31] LABS: Bilirubin Negative (Negative); Blood, Urine Negative (Negative); Clarity CLEAR (Clear); Glucose, Urine (Dipstick) Negative (Negative); Leukocyte Negative (Negative); Nitrite Negative (Negative); Protein, Urine (Dipstick) Negative (Neg-Trace); Urobilinogen 0.2 mg/dL (0.2-1.0)
[2018-07-15 18:36] LABS: Specific Gravity, Urine 1.002 (1.002-1.036)
[2018-07-15 18:41] LABS: Amphetamine Not Detected (NotDetected); Barbiturates Screen Not Detected (NotDetected); Benzodiazepine Screen Detected (NotDetected); Cocaine Metabolite Screen Not Detected (NotDetected); Medtox Control Line Valid? VALID (VALID); Medtox Reader # READER 4; Methadone Not Detected (NotDetected); Methamphetamine Not Detected (NotDetected); Opiate Screen Not Detected (NotDetected); Oxycodone Screen Not Detected (NotDetected); Phencyclidine (PCP) Not Detected (NotDetected); THC/Cannabinoid Screen Not Detected (NotDetected); Tricyclic Screen Not Detected (NotDetected)
[2018-07-15 18:44] LABS: Acetaminophen Less than 6.0 mcg/mL (10.0-30.0); Alcohol 168 mg/dL (Less than 10); Anion Gap 13 mmol/L (10-20); BUN (Urea Nitrogen) Less than 4 mg/dL (9.8-20.1); CK (CPK) 110 U/L (29-168); Calc. Creatinine Clearance 0 mL/min (70-130); Calcium 9.4 mg/dL (7.8-10.44); Carbon Dioxide 31 mmol/L (22-29); Chloride 100 mmol/L (98-107); Estimated GFR-MDRD Greater than 90; Glucose 107 mg/dL (70-105); Potassium 3.3 mmol/L (3.5-5.1); Salicylate Less than 8.0 mg/dL (15.0-30.0); Sodium 141 mmol/L (136-145)
== END 2018-07-15 19:32 | disposition left against medical advice (07) ==
LOC: ERS 15:59
DX: F10.129 Alcohol abuse with intoxication, unspecified (principal); I10 Essential (primary) hypertension; J44.9 Chronic obstructive pulmonary disease, unspecified; F17.210 Nicotine dependence, cigarettes, uncomplicated
CPT/HCPCS: 36415; 80048; 80306; 80307; 81003; 82140; 82550; 83690; 84443; 84484; 85025; 93005

== ENCOUNTER 2018-07-22 20:06 | Inpatient (IN) | payer SELFPAY ==
[2018-07-22 20:30] LABS: #Basophils 0.1 thou/uL (0.0-0.2); #Eosinphils 0.1 thou/uL (0.0-0.7); #Lymphocytes 1.6 thou/uL (1.20-3.40); #Monocytes 0.3 thou/uL (0.11-0.59); #Neutrophils 6.6 thou/uL (1.40-6.50); %Basophils 0.9 % (0.0-1.0); %Eosinophils 0.9 % (0.0-10.0); %Lymphocytes 18.3 % (21.0-51.0); %Monocytes 3.9 % (0.0-10.0); Hemoglobin 11.8 g/dL (12.0-16.0); Mean Corpuscular HGB CONC 34.3 g/dL (32.0-36.0); Mean Corpuscular Hemoglobin 34.1 pg (27.0-31.0); Mean Corpuscular Volume 99.2 fL (78.0-98.0); Mean Platelet Volume 7.4 fL (7.4-10.4); Platelet Count 289 thou/uL (130-400); RBC Distribution Width 12.5 % (11.5-14.5); Red Blood Cell (RBC) Count 3.47 mill/uL (4.20-5.40); White Blood Cell (WBC) Count 8.6 thou/uL (4.8-10.8)
[2018-07-22 20:57] LABS: ALT (SGPT) 28 U/L (8-55); AST (SGOT) 82 U/L (5-34); Acetaminophen Less than 6.0 mcg/mL (10.0-30.0); Albumin 3.4 g/dL (3.5-5.0); Alcohol 285 mg/dL (Less than 10); Alkaline Phosphatase 119 U/L (40-150); Anion Gap 18 mmol/L (10-20); BUN (Urea Nitrogen) Less than 4 mg/dL (9.8-20.1); Bilirubin, Total 0.3 mg/dL (0.2-1.2); CK (CPK) 548 U/L (29-168); Calc. Creatinine Clearance 0 mL/min (70-130); Calcium 8.5 mg/dL (7.8-10.44); Carbon Dioxide 22 mmol/L (22-29); Chloride 97 mmol/L (98-107); Estimated GFR-MDRD Greater than 90; Globulin 3.8 g/dL (2.4-3.5); Glucose 117 mg/dL (70-105); Lipase 347 U/L (8-78); Potassium 4.1 mmol/L (3.5-5.1); Protein, Total 7.2 g/dL (6.0-8.3); Salicylate Less than 8.0 mg/dL (15.0-30.0); Sodium 133 mmol/L (136-145)
--- NOTE | 2018-07-22 21:19 | RAD ---
PORTABLE CHEST ONE VIEW: 07/22/18 at 8:04 p.m. HISTORY: Injury, chest pain. FINDINGS/IMPRESSION: Comparison made with exam of 05/15/18. The heart size is normal. The aorta is tortuous. The lungs are expanded. Mild patchy density seen in the right lower lung which may represent a pulmonary contusion. No pneumothoraces or pleural effusion s are seen. POS: [facility]
--- NOTE | 2018-07-22 21:22 | CT ---
CT BRAIN WITHOUT CONTRAST: 07/22/18 HISTORY: Level II trauma. Fell in bathroom, trauma to the head. FINDINGS: Comparison made with exam of 05/16/18. Changes of chronic small vessel ischemic disease again seen. The ventricular size is appropriate and the basilar cisterns patent. No evidence of acute infarct, hemorrhage, midline shift, or abnormal ext ra-axial fluid collections are noted. The bony calvarium is intact. The visualized paranasal sinuses and mastoid air cells are well aerated. IMPRESSION: No CT evidence of acute intracranial process. Discussed over the telephone with ER physician, Dr. Patsy Lynne at 8:39 p.m. POS: [facility]
--- NOTE | 2018-07-22 21:24 | CT ---
CT CERVICAL SPINE WITH CORONAL AND SAGITTAL REFORMATIONS AND NO IV CONTRAST: 07/22/18 HISTORY: Level II trauma, fall, neck pain. FINDINGS: There is multilevel degenerative changes with loss of cervical lordosis and mild reversal. No acute fracture, subluxation, or facet malalignment is identified. Discussed over the telephone with ER physician, Dr. Patsy Lynne at 8:43 p.m. POS: [facility]
[2018-07-22 21:36] LABS: Bilirubin Negative (Negative); Blood, Urine Negative (Negative); Clarity CLEAR (Clear); Glucose, Urine (Dipstick) Negative (Negative); Leukocyte Negative (Negative); Nitrite Negative (Negative); Protein, Urine (Dipstick) Negative (Neg-Trace); Specific Gravity, Urine 1.012 (1.002-1.036); Urobilinogen 0.2 mg/dL (0.2-1.0)
[2018-07-22 21:39] LABS: Amphetamine Not Detected (NotDetected); Barbiturates Screen Not Detected (NotDetected); Benzodiazepine Screen Detected (NotDetected); Cocaine Metabolite Screen Not Detected (NotDetected); Medtox Control Line Valid? VALID (VALID); Medtox Reader # READER 4; Methadone Not Detected (NotDetected); Methamphetamine Not Detected (NotDetected); Opiate Screen Not Detected (NotDetected); Oxycodone Screen Not Detected (NotDetected); Phencyclidine (PCP) Not Detected (NotDetected); THC/Cannabinoid Screen Not Detected (NotDetected); Tricyclic Screen Not Detected (NotDetected)
--- NOTE | 2018-07-22 21:44 | CT ---
CT CHEST WITH IV CONTRAST CT ABDOMEN WITH IV CONTRAST CT PELVIS WITH IV CONTRAST CORONAL AND SAGITTAL REFORMATIONS OF THE THORACOLUMBAR SPINE 07/22/18 HISTORY: Level II trauma. Fell in the bathroom. FINDINGS: Comparison with the exam of 11/27/17. Small low density lesion in the left lobe of the thyroid gland is again seen. No mediastinal hematoma or intimal flap in the aorta is seen to suggest transection. No fluid or pericardial effusions are i dentified. There are patchy areas of consolidation in the right middle lobe and lingula. Small area of patchy density seen in the peripheral aspect of the right upper lobe. 4 mm peripheral ground glass pulmonary nodule is stable. The liver, spleen, pancreas, adrenal glands and kidneys are intact. There is fatty infiltration of th e liver. Calcific density in the left posterior renal cortex is again seen. The urinary bladder and g allbladder are intact. No free air or free fluid is seen in the abdomen or pelvis. Small uterine fibroids are redemonstrated . No acute fracture or dislocation is seen. Suggestion of old coccygeal fracture is again noted. There is a subcutaneous small fluid collection in the left posterior lateral upper back. IMPRESSION: 1. Patchy consolidation in the lungs. Infection versus contusions. 2. No evidence of solid organ injury. Discussed over the telephone with ER physician, Dr. Lynne at 8:53 p.m. POS: [facility]
[2018-07-22] MEDS ORDERED: Clindamycin/D5W 900 mg/50 ml Premix Bag ONE (22:28)
[2018-07-22] MEDS ORDERED: Clindamycin/D5W 600 mg/50 ml Premix Bag ONE (22:32)
[2018-07-23] MEDS ORDERED: Lorazepam 2 MG/ML VIAL ONE (05:48)
[2018-07-23] MEDS ORDERED: Ondansetron PF 4 MG/2 ML Vial ONE ×2 (08:17→17:45)
[2018-07-23] MEDS ORDERED: Multivitamins, Adult 10 ML, Thiamine HCl 100 MG, Folic Acid 1 MG in Dextrose 5 %-0.45 %... IV SCH (09:00)
--- NOTE | 2018-07-23 13:34 | HP ---
PRIMARY CARE PROVIDER: RESHMA Freed. CHIEF COMPLAINT: Fall. HISTORY OF PRESENT ILLNESS: Ms. Lora is a pleasant 58-year-old lady, who was seen at [facility] on July 23, 2018. She has a history of daily alcohol use. She reports that she fell in the bathroom last night when she went to urinate. She does not recall the circumstances around the fall. She was found to have injury to the upper back. She denies any fevers or chills. She reports that her last drink was 2 days ago. She denies any anxiety. She reports feeling cold all the time. She denies any abdominal pain. REVIEW OF SYSTEMS: All other systems reviewed and found to be negative. PAST MEDICAL HISTORY: Pancreatitis, COPD, hypertension, pulmonary embolism, and alcoholism. PAST SURGICAL HISTORY: None. FAMILY HISTORY: Unknown because the patient is adopted. SOCIAL HISTORY: The patient is smoking 1-1/2 packs of cigarettes a day. She drinks 6 to 10 beers per day. She has not had any alcohol over the last 2 days. She denies recreational drug use. CODE STATUS: I discussed her code status. She is DNAR. ALLERGIES: PENICILLIN. CURRENT MEDICATIONS: Amlodipine 5 mg daily. PHYSICAL EXAMINATION: GENERAL: On examination, Ms. Lora is awake and alert, not in acute distress. VITAL SIGNS: Blood pressure is 126/62, pulse 122, respiratory rate 19, and oxygen saturation 96% on room air. T-max in the emergency room is 99.2 degrees Fahrenheit. EYES: No scleral icterus. No conjunctival pallor. ENT: Dry mucosal membranes. No oropharyngeal erythema or exudates. NECK: Supple and nontender. Trachea is midline. RESPIRATORY: Accessory muscles of breathing are not active. Chest wall movements are symmetric bilaterally. LUNGS: Clear to auscultation without wheeze, rhonchi, or crepitations. CARDIOVASCULAR: S1 and S2 are heard, tachycardic and regular. Peripheral pulses palpable. No carotid bruit. No pericardial rub. ABDOMEN: Soft and nontender. Bowel sounds heard. NEUROLOGIC: Cranial nerves 2 through 12 intact, deep tendon reflexes 2+. MUSCULOSKELETAL: Power is 5/5 in all 4 extremities. SKIN: Dressing over the left upper back. LYMPHATIC: No cervical lymphadenopathy. PSYCHIATRIC: Normal mood and normal affect. The patient is oriented to person, place, and time. LABORATORY DATA: Ms. Lora' labs and investigations were reviewed. Noncontrast CT scan of the brain did not show any acute intracranial process. CT scan of the cervical spine showed multilevel degenerative changes with loss of cervical lordosis and mild reversal. There were no acute fracture, subluxation, or facet malalignment. She also had CT scan of the chest, abdomen, and pelvis with IV contrast, which showed patchy consolidation in the lungs, infection versus contusions and no evidence of solid organ injury. Chest x-ray, patchy density in the right lower lung. She has white count, normal platelet count, and macrocytic anemia with hemoglobin of 11.8. Sodium is decreased at 133, potassium is normal. Creatinine is normal. Total bilirubin, ALT, and alkaline phosphatase are normal. AST is elevated at 82. CK is elevated at 548. Lipase is elevated at 347. Urinalysis is negative. Plasma alcohol level was 285 at 2013 hours yesterday. ASSESSMENT AND PLAN: Ms. Lora is a pleasant 58-year-old lady, who was seen at [facility] on July 23, 2018. Her problem list includes: 1. Alcohol withdrawal: Ms. Lora appears to be going through alcohol withdrawal. She has not had alcohol in 2 days. She will be admitted to the hospital for further management. She will be started on ASE protocol and banana bag. 2. Elevated lipase: It is unclear whether this represents pancreatitis at this time. She is nontender in the abdomen. 3. Fall: We will request PT eval and treatment. 4. Hypertension: We will continue amlodipine. 5. Tobacco abuse: Consult the patient regarding tobacco cessation, we will start nicotine replacement therapy. 6. Alcohol abuse: The patient has been counseled regarding alcohol cessation. 7. Rhabdomyolysis: We will provide intravenous fluids and recheck CK level. Many thanks for allowing me to participate in your patient's care. Please feel free to contact me with any questions or concerns. LEVEL OF RISK: Moderate. LEVEL OF COMPLEXITY: Moderate. Job ID: [id number]
[2018-07-23] MEDS: Nicotine 21 MG PATCH TD SCH (20:26)
[2018-07-23] MEDS: Lorazepam 0.5 MG TAB PO SCH (20:29)
[2018-07-23] MEDS: Sodium Chloride 0.9% 1,000 ML IV SCH (20:29)
[2018-07-23] MEDS: Morphine 2 MG/ML SYRINGE SLOW IVP PRN (20:31)
[2018-07-24] MEDS: Morphine 2 MG/ML SYRINGE SLOW IVP PRN ×4 (00:45→19:04)
[2018-07-24 02:28] VITALS: BMI 17.5
[2018-07-24] MEDS: Sodium Chloride 0.9% 1,000 ML IV SCH ×2 (04:37→21:30)
[2018-07-24 06:49] LABS: #Eosinphils 0.1 thou/uL (0.0-0.7); #Lymphocytes 2.1 thou/uL (1.20-3.40); #Monocytes 0.4 thou/uL (0.11-0.59); #Neutrophils 3.4 thou/uL (1.40-6.50); %Basophils 0.6 % (0.0-1.0); %Eosinophils 2.4 % (0.0-10.0); %Lymphocytes 34.8 % (21.0-51.0); %Monocytes 6.5 % (0.0-10.0); %Neutrophils 55.7 % (42.0-75.0); Mean Corpuscular HGB CONC 32.9 g/dL (32.0-36.0); Mean Corpuscular Hemoglobin 33.2 pg (27.0-31.0); Mean Platelet Volume 7.5 fL (7.4-10.4); Platelet Count 205 thou/uL (130-400); RBC Distribution Width 12.5 % (11.5-14.5); Red Blood Cell (RBC) Count 3.31 mill/uL (4.20-5.40); White Blood Cell (WBC) Count 6.2 thou/uL (4.8-10.8)
[2018-07-24 07:13] LABS: Anion Gap 14 mmol/L (10-20); BUN (Urea Nitrogen) Less than 4 mg/dL (9.8-20.1); CK (CPK) 308 U/L (29-168); Calc. Creatinine Clearance 75 mL/min (70-130); Calcium 8.7 mg/dL (7.8-10.44); Carbon Dioxide 25 mmol/L (22-29); Chloride 97 mmol/L (98-107); Estimated GFR-MDRD Greater than 90; Glucose 94 mg/dL (70-105); Potassium 3.4 mmol/L (3.5-5.1); Sodium 133 mmol/L (136-145)
[2018-07-24] MEDS: Lorazepam 0.5 MG TAB PO SCH ×2 (09:00→21:29)
[2018-07-24] MEDS: Enoxaparin Sodium 40 MG/0.4 ML SYRINGE SC SCH (09:01)
[2018-07-24] MEDS: Ondansetron PF 4 MG/2 ML Vial IVP PRN (09:02)
[2018-07-24] MEDS: Multivitamins, Adult 10 ML, Folic Acid 1 MG, Thiamine HCl 100 MG in Dextrose 5 %-0.45 %... IV SCH (10:14)
[2018-07-24] MEDS ORDERED: Acetaminophen/Codeine 30-300mg Tablet PO PRN ×2 (10:20)
[2018-07-24] MEDS ORDERED: traMADol HCl 50 MG TAB PO PRN (10:21)
[2018-07-24] MEDS ORDERED: Promethazine HCl 25 MG/ML VIAL IM/IV PRN (10:21)
[2018-07-24] MEDS ORDERED: Cyclobenzaprine 10 MG TAB PO PRN (10:23)
[2018-07-24] MEDS ORDERED: Cyclobenzaprine 10 MG TAB PO SCH (10:30)
[2018-07-24] MEDS: traMADol HCl 50 MG TAB PO PRN (10:32)
[2018-07-24] MEDS: Amlodipine 5 MG TAB PO SCH (10:33)
[2018-07-24] MEDS: Nicotine 21 MG PATCH TD SCH (10:34)
--- NOTE | 2018-07-24 13:44 | PDOC.PN ---
- Subjective Encounter Start Date: 07/24/18 Encounter Start Time: 08:00 Pt seen for followup re: alcohol withdrawal. Says she feels okay, has back pain. - Objective Resuscitation Status - Order Detail: 07/23/18 10:08 Resuscitation Status Routine Resuscitation Status: DNAR: NO Resuscitation Discussed with: patient MAR Reviewed: Yes Vital Signs & Weight: Vital Signs (12 hours) Temp Pulse Resp BP BP BP Pulse Ox 07/24/18 11:29 98.6 F 112 H 14 162/84 H 95 07/24/18 10:33 99 139/68 07/24/18 07:24 98.2 F 107 H 16 123/79 123/79 94 L 07/24/18 03:32 98.5 F 97 18 117/71 93 L 07/24/18 02:19 144/77 H Weight Weight 99 lb 3 oz Result Diagrams: 07/24/18 06:32 07/24/18 06:32 EKG Reviewed by me: Yes (Tele: sinus tachycardia) Phys Exam - Physical Examination Constitutional: NAD HEENT: moist MMs, sclera anicteric, oral pharynx no lesions, 2+ tonsils Neck: no nodes, no JVD, supple, full ROM Respiratory: clear to auscultation bilateral Cardiovascular: no rub S1, S2, reg, tachy Gastrointestinal: soft, non-tender, no distention, positive bowel sounds paraspinal tenderness mid-back Neurological: moves all 4 limbs Psychiatric: normal affect, A&O x 3 Dx/Plan (1) Alcohol withdrawal Code(s): F10.239 - ALCOHOL DEPENDENCE WITH WITHDRAWAL, UNSPECIFIED Status: Acute Comment: Improving, continue ASE protocol (2) Dorsalgia Code(s): M54.9 - DORSALGIA, UNSPECIFIED Status: Acute Comment: trial Flexeril (3) COPD (chronic obstructive pulmonary disease) Status: Chronic Comment: stable (4) Hypertension Code(s): I10 - ESSENTIAL (PRIMARY) HYPERTENSION Status: Chronic Comment: continue amlodipine, monitor vital signs and titrate antihypertensives as needed - Plan * . Review of Systems - Review of Systems Constitutional: negative: fever, chills, sweats, weakness, malaise Respiratory: negative: Cough, Shortness of Breath, SOB with Excertion, Pleuritic Pain, Wheezing Cardiovascular: negative: chest pain, palpitations, orthopnea, paroxysmal nocturnal dyspnea, edema, light headedness Gastrointestinal: negative: Nausea, Vomiting, Abdominal Pain, Diarrhea, Constipation, Melena, Hematochezia Musculoskeletal: Back Pain. negative: Neck Pain, Shoulder Pain, Arm Pain, Hand Pain, Leg Pain, Foot Pain - Medications/Allergies Allergies/Adverse Reactions: Allergies Allergy/AdvReac Type Severity Reaction Status Date / Time Penicillins Allergy Verified 05/08/16 21:06 Medications: Current Medications Acetaminophen/Codeine Phosphate (Tylenol #3) 1 tab PO Q6H PRN PRN Reason: Pain 4-6 Amlodipine Besylate (Norvasc) 5 mg PO DAILY [facility] Last Admin: 07/24/18 10:33 Dose: 5 mg Cyclobenzaprine HCl (Flexeril) 10 mg PO TID PRN PRN Reason: Muscle Spasm Enoxaparin Sodium (Lovenox) 40 mg SC 0900 [facility] Last Admin: 07/24/18 09:01 Dose: 40 mg Multivitamins 10 ml/ Folic Acid 1 mg/ Thiamine HCl 100 mg / Dextrose/Sodium Chloride 1,011.2 mls @ 100 mls/hr IV Q24HR [facility] Last Admin: 07/24/18 10:14 Dose: 1,011.2 mls Sodium Chloride (Normal Saline 0.9%) 1,000 mls @ 70 mls/hr IV .[id number] [facility] Last Admin: 07/24/18 04:37 Dose: 1,000 mls Lorazepam (Ativan) 0.5 mg PO BID [facility] Last Admin: 07/24/18 09:00 Dose: 0.5 mg Morphine Sulfate (Morphine) 2 mg SLOW IVP Q4H PRN PRN Reason: Moderate Pain (4-6) Last Admin: 07/24/18 09:01 Dose: 2 mg Nicotine (Nicoderm Patch) 21 mg TD Q24HR [facility] Last Admin: 07/24/18 10:34 Dose: 21 mg Ondansetron HCl (Zofran) 4 mg IVP Q6H PRN PRN Reason: Nausea/Vomiting Last Admin: 07/24/18 09:02 Dose: 4 mg Promethazine HCl (Phenergan) 25 mg IM/IV Q6H PRN PRN Reason: Nausea/Vomiting Last Admin: 07/24/18 10:33 Dose: 25 mg Tramadol HCl (Ultram) 50 mg PO Q6H PRN PRN Reason: Pain 1-3 Last Admin: 07/24/18 10:32 Dose: 50 mg
[2018-07-24] MEDS ORDERED: Potassium Chloride 20 MEQ TAB PO SCH (14:00)
[2018-07-25] MEDS: Morphine 2 MG/ML SYRINGE SLOW IVP PRN ×2 (02:08→10:38)
[2018-07-25 07:00] LABS: #Basophils 0.1 thou/uL (0.0-0.2); #Eosinphils 0.3 thou/uL (0.0-0.7); #Lymphocytes 2.2 thou/uL (1.20-3.40); #Monocytes 0.5 thou/uL (0.11-0.59); #Neutrophils 3.7 thou/uL (1.40-6.50); %Eosinophils 3.8 % (0.0-10.0); %Lymphocytes 32.8 % (21.0-51.0); %Monocytes 7.8 % (0.0-10.0); %Neutrophils 54.5 % (42.0-75.0); Hemoglobin 11.1 g/dL (12.0-16.0); Mean Corpuscular HGB CONC 33.1 g/dL (32.0-36.0); Mean Corpuscular Hemoglobin 33.5 pg (27.0-31.0); Mean Platelet Volume 8.1 fL (7.4-10.4); Platelet Count 205 thou/uL (130-400); RBC Distribution Width 12.6 % (11.5-14.5); Red Blood Cell (RBC) Count 3.31 mill/uL (4.20-5.40); White Blood Cell (WBC) Count 6.8 thou/uL (4.8-10.8)
[2018-07-25] MEDS: traMADol HCl 50 MG TAB PO PRN (07:23)
[2018-07-25 07:25] LABS: Anion Gap 10 mmol/L (10-20); BUN (Urea Nitrogen) Less than 4 mg/dL (9.8-20.1); Calc. Creatinine Clearance 79 mL/min (70-130); Calcium 8.3 mg/dL (7.8-10.44); Carbon Dioxide 28 mmol/L (22-29); Chloride 100 mmol/L (98-107); Estimated GFR-MDRD Greater than 90; Glucose 102 mg/dL (70-105); Potassium 3.5 mmol/L (3.5-5.1); Sodium 134 mmol/L (136-145)
[2018-07-25] MEDS: Lorazepam 0.5 MG TAB PO SCH (08:14)
[2018-07-25] MEDS: Amlodipine 5 MG TAB PO SCH (08:14)
[2018-07-25] MEDS: Enoxaparin Sodium 40 MG/0.4 ML SYRINGE SC SCH (08:14)
[2018-07-25] MEDS: Ondansetron PF 4 MG/2 ML Vial IVP PRN (08:15)
[2018-07-25] MEDS: Sodium Chloride 0.9% 1,000 ML IV SCH (08:21)
[2018-07-25] MEDS ORDERED: Aspirin 325 MG TAB PO SCH (09:00)
[2018-07-25] MEDS: Multivitamins, Adult 10 ML, Folic Acid 1 MG, Thiamine HCl 100 MG in Dextrose 5 %-0.45 %... IV SCH (09:31)
[2018-07-25] MEDS: Nicotine 21 MG PATCH TD SCH (10:38)
[2018-07-25] MEDS ORDERED: Lidocaine 5% Patch TD SCH (15:15)
--- NOTE | 2018-07-25 15:53 | PDOC.PN ---
- Subjective Encounter Start Date: 07/25/18 Encounter Start Time: 07:40 Pt seen for followup re: alcohol withdrawal. Says has back pain. No other complaints. - Objective Resuscitation Status - Order Detail: 07/23/18 10:08 Resuscitation Status Routine Resuscitation Status: DNAR: NO Resuscitation Discussed with: patient CORI Reviewed: Yes Vital Signs & Weight: Vital Signs (12 hours) Temp Pulse Resp BP Pulse Ox 07/25/18 11:07 98.1 F 102 H 15 128/78 97 07/25/18 07:26 98.5 F 93 14 140/74 93 L Weight Admit Weight 99 lb 3 oz Weight 99 lb 3 oz I&O: 07/24/18 07/25/18 07/26/18 06:59 06:59 06:59 Intake Total 2160 480 Output Total 1150 Balance 1010 480 Result Diagrams: 07/25/18 05:48 07/25/18 05:48 EKG Reviewed by me: Yes (Tele: NSR) Phys Exam - Physical Examination Constitutional: NAD HEENT: moist MMs Neck: supple Respiratory: clear to auscultation bilateral Cardiovascular: RRR Gastrointestinal: soft Neurological: moves all 4 limbs Psychiatric: normal affect Dx/Plan (1) Alcohol withdrawal Code(s): F10.239 - ALCOHOL DEPENDENCE WITH WITHDRAWAL, UNSPECIFIED Status: Acute Comment: Improved, on ASE protocol (2) Dorsalgia Code(s): M54.9 - DORSALGIA, UNSPECIFIED Status: Acute Comment: scheduled Flexeril, trial lidoderm patch. (3) COPD (chronic obstructive pulmonary disease) Status: Chronic Comment: stable (4) Hypertension Code(s): I10 - ESSENTIAL (PRIMARY) HYPERTENSION Status: Chronic Comment: controlled - Plan * . Review of Systems - Review of Systems Respiratory: negative: Cough, Dry, Shortness of Breath, Hemoptysis, SOB with Excertion, Pleuritic Pain, Sputum Cardiovascular: negative: chest pain, palpitations, orthopnea, paroxysmal nocturnal dyspnea, edema, light headedness - Medications/Allergies Allergies/Adverse Reactions: Allergies Allergy/AdvReac Type Severity Reaction Status Date / Time Penicillins Allergy Verified 05/08/16 21:06 Medications: Current Medications Acetaminophen (Tylenol) 650 mg PO Q8HR [facility] Amlodipine Besylate (Norvasc) 5 mg PO DAILY [facility] Last Admin: 07/25/18 08:14 Dose: 5 mg Aspirin (Aspirin) 325 mg PO DAILY [facility] Last Admin: 07/25/18 08:14 Dose: 325 mg Cyclobenzaprine HCl (Flexeril) 5 mg PO TID [facility] Enoxaparin Sodium (Lovenox) 40 mg SC 0900 [facility] Last Admin: 07/25/18 08:14 Dose: 40 mg Multivitamins 10 ml/ Folic Acid 1 mg/ Thiamine HCl 100 mg / Dextrose/Sodium Chloride 1,011.2 mls @ 100 mls/hr IV Q24HR [facility] Last Admin: 07/25/18 09:31 Dose: 1,011.2 mls Sodium Chloride (Normal Saline 0.9%) 1,000 mls @ 70 mls/hr IV .[id number] [facility] Last Admin: 07/25/18 08:21 Dose: 1,000 mls Lidocaine (Lidoderm 5% Patch) 1 patch TD Q24H [facility] Stop: 07/26/18 03:15 Lorazepam (Ativan) 0.5 mg PO BID [facility] Last Admin: 07/25/18 08:14 Dose: 0.5 mg Miscellaneous Medication (Lidocaine Patch Removal) 1 each TOP 0315 [facility] Nicotine (Nicoderm Patch) 21 mg TD Q24HR [facility] Last Admin: 07/25/18 10:38 Dose: 21 mg Ondansetron HCl (Zofran) 4 mg IVP Q6H PRN PRN Reason: Nausea/Vomiting Last Admin: 07/25/18 08:15 Dose: 4 mg Promethazine HCl (Phenergan) 25 mg IM/IV Q6H PRN PRN Reason: Nausea/Vomiting Last Admin: 07/24/18 10:33 Dose: 25 mg Tramadol HCl (Ultram) 50 mg PO Q6H PRN PRN Reason: Pain 1-3 Last Admin: 07/25/18 07:23 Dose: 50 mg
[2018-07-25 16:03] VITALS: BP 140/66; TEMP 97.9
[2018-07-25] MEDS ORDERED: Cyclobenzaprine 10 MG TAB PO SCH (21:00)
[2018-07-25] MEDS ORDERED: Acetaminophen 325 MG TAB PO SCH (22:00)
[2018-07-26] MEDS ORDERED: Lidocaine Patch Removal 1 EACH TOP SCH (03:15)
--- NOTE | 2018-07-26 04:44 | DIS ---
DATE OF ADMISSION: 07/23/2018 DATE OF DISCHARGE: 07/25/2018 PRIMARY CARE PROVIDER: Leyla Grande. DISCHARGE DIAGNOSES: 1. Alcohol intoxication. 2. Alcohol withdrawal. 3. Fall. 4. Back pain. 5. Rhabdomyolysis. 6. Hypokalemia. 7. Hyponatremia. CONDITION OF PATIENT ON THE DAY OF DISCHARGE: Stable. I assessed, Ms. Lora on the day of discharge. She denies any chest pain or shortness of breath. Vital signs are stable. S1 and S2 are heard, regular. Lungs are clear to auscultation bilaterally. DISCHARGE MEDICATIONS: 1. Amlodipine 5 mg daily. 2. Aspirin 325 mg daily. 3. Valium 5 mg as needed. 4. Lorazepam 0.5 mg 2 times daily. 5. Nicotine 21 mg patch daily. 6. Lidoderm 5% patch daily for 12 hours. 7. Thiamine 100 mg daily. HOSPITAL COURSE: Ms. Lora is a pleasant 58-year-old lady, who was admitted to [facility] following a fall. She had blood alcohol level of 285 at the time of admission. She was monitored for withdrawal. She also received pain medications for back pain. CT scan of the chest, abdomen and pelvis done at the time of admission did not show any acute fractures. It did not show any dislocations. She had suggestion of an old coccygeal fracture. She continued to improve clinically. She is being discharged home in a stable condition. She has been advised to follow up with her primary care provider in 1 day time. She will likely need referral to a pain specialist, if her pain does not improve with lidocaine patches. LABORATORY DATA: On the day of discharge, she has sodium of 134, potassium 3.5, white count is 6800, hemoglobin 11.1, and platelet count 8100. Creatinine is 0.54. She had lipase of 347 on July 22 and 263 on July 23. Creatine kinase was 548 on July 22 and trended down to 308 on July 24. DISCHARGE INSTRUCTION: The patient has been advised to stop alcohol and tobacco use. DISCHARGE DESTINATION: Home. TIME SPENT: Total amount of time spent coordinating this discharge: 32 minutes. Job ID: [id number]
== END 2018-07-25 18:25 | disposition home or self-care (01) | DRG 897 ==
LOC: ERS 20:06 → ERHOLD 07-23 06:17 → 2NO 07-23 18:48
PROVIDERS: ADMIT Family Medicine; ATTEND Hospitalist
DX: F10.239 Alcohol dependence with withdrawal, unspecified (principal); M62.82 Rhabdomyolysis; J44.9 Chronic obstructive pulmonary disease, unspecified; Z66 Do not resuscitate; I10 Essential (primary) hypertension; M54.9 Dorsalgia, unspecified; F17.210 Nicotine dependence, cigarettes, uncomplicated; Z86.711 Personal history of pulmonary embolism; Z88.0 Allergy status to penicillin
CPT/HCPCS: 36415; 51702; 70450; 71045; 71260; 72125; 74177; 80048; 80053; 80306; 80307; 81003; 82550; 83605; 83690; 85025; 87040; 96365; 96367; 96374; 96375; A4353; J1650; J2060; J2270; J2405; J2550; J3411; J3490; J7042; Q9966

== ENCOUNTER 2018-11-16 14:32 | Outpatient (CLI) | payer OTHER ==
--- NOTE | 2018-11-16 15:40 | RAD ---
Radiograph left clavicle 2 views: DATE: 11/16/2018 HISTORY: 58-year-old female status post traumatic injury from fall. FINDINGS: There is a fracture of the distal portion of the clavicle, with at least 2 moderate-sized fracture fr agments. There is mild displacement of one of the fragments. There is moderate inferior displacement of one of the other fragments. IMPRESSION: Acute, traumatic, mildly comminuted, displaced distal clavicular fracture.
== END 2018-11-16 14:33 | disposition home or self-care (01) ==
LOC: RAD-FRANK 14:32
PROVIDERS: ATTEND Nurse Practitioner Family
DX: M25.512 Pain in left shoulder (principal); S42.032K Displaced fracture of lateral end of left clavicle, subsequent encounter for fracture with nonunion

== ENCOUNTER 2019-07-06 09:36 | Inpatient (IN) | payer SELFPAY ==
[2019-07-06 11:03] LABS: #Neutrophils 9.2 thou/uL (1.40-6.50); %Eosinophils 0.2 % (0.0-10.0); %Lymphocytes 9.2 % (21.0-51.0); %Monocytes 9.1 % (0.0-10.0); %Neutrophils 81.5 % (42.0-75.0); Hemoglobin 14.1 g/dL (12.0-16.0); Mean Corpuscular HGB CONC 35.9 g/dL (32.0-36.0); Mean Corpuscular Hemoglobin 36.4 pg (27.0-31.0); Mean Platelet Volume 8.9 fL (7.4-10.4); Platelet Count 163 thou/uL (130-400); RBC Distribution Width 11.5 % (11.5-14.5); Red Blood Cell (RBC) Count 3.86 mill/uL (4.20-5.40); White Blood Cell (WBC) Count 11.3 thou/uL (4.8-10.8)
[2019-07-06 11:10] LABS: ALT (SGPT) 91 U/L (8-55); AST (SGOT) 109 U/L (5-34); Albumin 3.7 g/dL (3.4-4.8); Alkaline Phosphatase 131 U/L (40-110); Anion Gap 13 mmol/L (10-20); BUN (Urea Nitrogen) 4 mg/dL (9.8-20.1); Bilirubin, Total 0.7 mg/dL (0.2-1.2); Calc. Creatinine Clearance 0 mL/min (70-130); Calcium 8.8 mg/dL (7.8-10.44); Carbon Dioxide 29 mmol/L (23-31); Chloride 85 mmol/L (98-107); Estimated GFR-MDRD Greater than 90; Globulin 3.1 g/dL (2.4-3.5); Glucose 164 mg/dL (80-115); Lipase 458 U/L (8-78); Potassium 3.2 mmol/L (3.5-5.1); Protein, Total 6.8 g/dL (6.0-8.3); Sodium 124 mmol/L (136-145)
[2019-07-06] MEDS ORDERED: Morphine 4 MG/ML VIAL ONE (11:41)
[2019-07-06] MEDS ORDERED: Potassium Chloride 20 MEQ TAB ONE (11:58)
[2019-07-06 11:59] LABS: Bilirubin Negative (Negative); Blood, Urine Negative (Negative); Clarity Clear (Clear); Glucose, Urine (Dipstick) Normal (Negative); Leukocyte Negative Leu/uL (Negative); Nitrite Negative (Negative); Protein, Urine (Dipstick) Negative (Neg-Trace); Urobilinogen Normal mg/dL (Less than 2)
[2019-07-06 12:08] LABS: INR-International Normal Ratio 0.9; PTT 23.5 SEC (22.9-36.1); Prothrombin Time 12.6 SEC (12.0-14.7)
--- NOTE | 2019-07-06 12:30 | CT ---
CT abdomen and pelvis with IV contrast HISTORY: Abdominal pain. Pancreatitis. COMPARISON: 07/22/2018. FINDINGS: Prominent calcification throughout the arterial structures. Luminal narrowing at the aortic bifurcation and proximal common iliac arteries. Subtle hyperdensity associated with the gallbladder fundal wall more pronounced than on prior CT. Ext ensive dystrophic calcification is again shown to be associated with the pancreatic tissue with mild distention of the ductal system. No adjacent inflammation. Dystrophic calcification associated with the posterior cortex of left kidney is stable. Prominent degenerative changes throughout the lumbar spine. Throughout the enteric system, there are many hyperdense discs, most in the range of 1.5-1.8 cm great est diameters. They are of calcific density. The greatest accumulations are in the gastric antrum, cecum, and rectum. IMPRESSION : Findings of chronic pancreatitis. No significant acute inflammation evident. Hyperdensity of the gallbladder wall may reflect developing porcelain gallbladder. Very large number of ingested small calcific density discs. Please correlate regarding ingestion of p ossible medication versus other objects. Prominent atherosclerosis with high grade stenosis at the common iliac artery origins.
[2019-07-06] MEDS ORDERED: Iopamidol-370 76% 500 ML 1 ML ONE (12:46)
[2019-07-06 14:47] VITALS: BMI 16.5
[2019-07-06] MEDS ORDERED: Ondansetron PF 4 MG/2 ML Vial IVP PRN ×2 (15:00→18:08)
[2019-07-06] MEDS ORDERED: Sodium Chloride 0.9% 1,000 ML IV SCH (15:00)
[2019-07-06] MEDS ORDERED: Ondansetron ODT 4 MG TAB SL PRN (15:00)
[2019-07-06] MEDS ORDERED: Acetaminophen 325 MG TAB PO PRN (15:00)
[2019-07-06] MEDS ORDERED: HYDROcodone/Acetaminophen 5/325 mg Tablet PO PRN (15:00)
[2019-07-06] MEDS: HYDROcodone/Acetaminophen 5/325 mg Tablet PO PRN ×2 (15:41→22:55)
[2019-07-06] MEDS ORDERED: Lorazepam 0.5 MG TAB PO PRN (16:11)
[2019-07-06] MEDS ORDERED: Diazepam 5 MG TAB PO PRN ×2 (16:11→16:21)
[2019-07-06] MEDS ORDERED: Diazepam 5 MG TAB PO SCH (16:30)
[2019-07-06] MEDS: NS 0.9% w/ 20 MEQ KCL 1,000 ML/1,000 ML BAG IV SCH (16:50)
[2019-07-06 16:58] LABS: ALT (SGPT) 98 U/L (8-55); AST (SGOT) 112 U/L (5-34); Alkaline Phosphatase 140 U/L (40-110); Anion Gap 14 mmol/L (10-20); BUN (Urea Nitrogen) Less than 4 mg/dL (9.8-20.1); Bilirubin, Total 1.1 mg/dL (0.2-1.2); Calc. Creatinine Clearance 64 mL/min (70-130); Calcium 9.1 mg/dL (7.8-10.44); Carbon Dioxide 30 mmol/L (23-31); Chloride 86 mmol/L (98-107); Estimated GFR-MDRD Greater than 90; Globulin 3.7 g/dL (2.4-3.5); Glucose 156 mg/dL (80-115); Potassium 3.6 mmol/L (3.5-5.1); Protein, Total 7.7 g/dL (6.0-8.3); Sodium 126 mmol/L (136-145)
--- NOTE | 2019-07-06 18:47 | HP ---
CHIEF COMPLAINT: Abdominal pain, nausea, and vomiting. HISTORY OF PRESENT ILLNESS: The patient is a 59-year-old female with a history of alcohol use and chronic pancreatitis, who presents to the hospital with complaints of abdominal pain, nausea, and vomiting, going on for the past couple of days. The patient's history is kind of limited, after asking her multiple questions, she really is very hesitant to give any significant information. She states that she had chicken soup yesterday and 30 minutes after that, started having abdominal pain, nausea, and vomiting. She stated that she had nausea and vomiting even the day prior to that. She then drank a beer hoping that she would belch and would make her feel better. However, it did not, so she came into the ER for further evaluation. She denies any fevers or chills. She does have a chronic cough. She smokes about 2 packs a day. She denies any fevers or chills at home. She denies any dark stools or using any ibuprofen. PAST MEDICAL HISTORY: 1. History of chronic pancreatitis. 2. COPD, I am not sure if she has had a PFT to prove that. 3. Hypertension. 4. Pulmonary embolism history. 5. Alcohol use. PAST SURGICAL HISTORY: She denies. FAMILY HISTORY: Unknown because the patient is adopted. SOCIAL HISTORY: She smokes about 2 packs a day. Drinks about 6 to 10 beers a day. Denies any drug use. She is a full code. She stated that she had her beer yesterday. She denies any withdrawal symptoms. ALLERGIES: SHE IS ALLERGIC TO PENICILLIN. MEDICATIONS: She is on amlodipine 5 mg daily. REVIEW OF SYSTEMS: All negative except for the ones mentioned above in the HPI. PHYSICAL EXAMINATION: VITAL SIGNS: As of the following; temperature of 98.2, pulse 90, respiratory rate 16, oxygen saturation 95% on 2 L, and blood pressure 159/81. GENERAL: She is awake, alert, and oriented x3. Does not appear in distress. CV: S1, S2 present. No murmurs, rubs, or gallops. LUNGS: Clear to auscultation. No rhonchi or wheezes noted. ABDOMEN: Soft. Bowel sounds are present x2. Pain upon palpation to epigastric area and the right and left upper quadrant. EXTREMITIES: No edema. Pedal pulses present x2. NEUROVASCULAR: No focal deficits noted. SKIN: No cuts, lesions, or bruises noted. LABORATORY RESULTS: As of the following: WBCs 11.3, hemoglobin of 14.1, hematocrit of 39.2, and platelets of 163. Chemistry; sodium of 124, 3.2, BUN of 4, creatinine of 0.56. Her bilirubin is 0.7, AST is 109, ALT is 91, and alkaline phosphatase is 131. Her lipase is 458. ASSESSMENT AND PLAN: The patient is a very pleasant 59-year-old female, who presents to the hospital with abdominal pain, nausea, and vomiting. 1. Acute on chronic pancreatitis. She did have a CT abdominal pelvis with contrast that indicated chronic pancreatitis. No significant acute inflammation was noted. I will put her on also PPI, maybe some gastritis. Also, based on the findings of the CAT scan, it was mentioned that she also has stenosis noted in her common iliac artery. I will start her on aspirin and statin. We will check a lipid level in the morning, we will include triglycerides. I will go ahead and consult GI. I have advised her against smoking. I will put her on a patch. We will start her on IV hydration, pain control. I will put on a clear liquid diet and advance as tolerated. If not, n.p.o. Lipase was mildly elevated, but nothing significant to what it has been in the past. I have advised her again drinking cessation. We will also go ahead and get a right upper quadrant ultrasound. 2. Hyponatremia, most likely secondary to low solute versus beer potomania. We will check a serum osmolality. We will check a urine osmolality. We will check a urine sodium. 3. 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 Started on aspirin and statin. Her lactic acid was 1. I have advised her against smoking. She may require Surgical Services as an outpatient to follow up. Her pain which is possible, this could be causing her some pain, however, unclear at this time. 4. Hypokalemia. We will replace her potassium and continue to monitor. 5. Elevated LFTs. It looks more of like an alcoholic hepatitis picture since her AST is greater than her ALT. Her PT and INR are normal. We will continue to monitor. 6. Deep venous thrombosis prophylaxis. We will put the patient on subcu heparin. Job ID: [id number]
[2019-07-06] MEDS ORDERED: Atorvastatin Calcium 40 MG TAB PO SCH (21:00)
[2019-07-06] MEDS: Nicotine 21 MG PATCH TD SCH (21:07)
[2019-07-06] MEDS: Famotidine/PF 20 mg/2ml Vial SLOW IVP SCH (21:09)
[2019-07-07] MEDS: NS 0.9% w/ 20 MEQ KCL 1,000 ML/1,000 ML BAG IV SCH ×3 (04:33→16:13)
[2019-07-07] MEDS: Morphine 2 MG/ML SYRINGE SLOW IVP PRN ×4 (05:54→20:07)
[2019-07-07 06:37] LABS: ALT (SGPT) 85 U/L (8-55); AST (SGOT) 105 U/L (5-34); Albumin 3.6 g/dL (3.4-4.8); Alkaline Phosphatase 119 U/L (40-110); Anion Gap 13 mmol/L (10-20); BUN (Urea Nitrogen) 4 mg/dL (9.8-20.1); Bilirubin, Total 1.2 mg/dL (0.2-1.2); Calc. Creatinine Clearance 76 mL/min (70-130); Calcium 8.9 mg/dL (7.8-10.44); Carbon Dioxide 28 mmol/L (23-31); Cardiac Risk 1.9 (Less than 4.5); Chloride 91 mmol/L (98-107); Cholesterol 148 mg/dl (< 200 Desired); Estimated GFR-MDRD Greater than 90; Globulin 3.5 g/dL (2.4-3.5); Glucose 110 mg/dL (80-115); HDL Cholesterol 80 mg/dL (>60 Neg Risk); LDL Cholesterol, Calculated 56 mg/dL; Potassium 3.6 mmol/L (3.5-5.1); Protein, Total 7.1 g/dL (6.0-8.3); Sodium 128 mmol/L (136-145); Triglycerides 62 mg/dL (Less than 150)
[2019-07-07] MEDS: Nicotine 21 MG PATCH TD SCH ×2 (08:55→10:20)
[2019-07-07] MEDS: Folic Acid 1 MG TAB PO SCH (08:58)
[2019-07-07] MEDS: Multivitamin W/ Minerals 1 TAB PO SCH (08:58)
[2019-07-07] MEDS: Aspirin 325 MG TAB PO SCH (08:58)
[2019-07-07] MEDS: Amlodipine 5 MG TAB PO SCH (08:58)
[2019-07-07] MEDS: Magnesium Oxide 400 MG TAB PO SCH (08:58)
[2019-07-07] MEDS: Famotidine/PF 20 mg/2ml Vial SLOW IVP SCH ×2 (08:59→20:08)
[2019-07-07] MEDS: Diazepam 5 MG TAB PO PRN (08:59)
[2019-07-07] MEDS ORDERED: Thiamine 100 MG TAB PO SCH (09:00)
[2019-07-07] MEDS ORDERED: Folic Acid 1 MG TAB PO SCH (09:00)
[2019-07-07] MEDS ORDERED: Bisacodyl 5 MG TAB PO SCH (11:45)
[2019-07-07] MEDS ORDERED: Polyethylene Glycol 3350 17 GM Packet PO SCH (11:45)
--- NOTE | 2019-07-07 12:45 | CON ---
DATE OF CONSULTATION: 07/07/2019 REQUESTING PHYSICIAN: Dariana Fuentes MD REASON FOR CONSULTATION: Pancreatitis. HISTORY OF PRESENT ILLNESS: Neelima Lora is a 59-year-old woman with a history significant for ongoing tobacco and alcohol abuse. She also has COPD, prior history of pulmonary embolus, and chronic pancreatitis with multiple brief hospitalizations throughout the past several years for this. She was last seen by my GI colleague, Dr. Mercado, during a 2017 admission. She was admitted to the hospital yesterday, reporting a couple of days of epigastric to generalized abdominal pain associated with nausea and multiple episodes of emesis yesterday. There have been no fevers or chills with this. She does have her ongoing chronic cough. Upon presentation, she had a mild leukocytosis with WBC of 11.3, lipase elevation to 458, and some modest LFT elevation as well with total bilirubin 1.2, alkaline phosphatase 119, AST 105, ALT 85. CT of the abdomen and pelvis demonstrated extensive dystrophic calcification of the pancreas with no adjacent inflammatory changes. There is extensive atherosclerotic disease. There is also hyperdensity of the gallbladder wall localized, possibly representing developing porcelain gallbladder. She has received morphine, was put on clear liquids this morning. She says she tolerated liquids okay without worsening of abdominal pain or nausea, though the abdominal pain does still persist. She has remained hemodynamically stable and afebrile. REVIEW OF SYSTEMS: Full review of systems including constitutional, head, eyes, ears, nose, throat, GI, , cardiovascular, respiratory, musculoskeletal, neurologic systems is negative except as noted in the HPI. PAST MEDICAL HISTORY: Chronic pancreatitis, COPD, hypertension, history of pulmonary embolus. Tobacco abuse, ongoing. Heavy alcohol use, ongoing. ALLERGIES: PENICILLIN. OUTPATIENT MEDICATION: Amlodipine 5 mg daily. SOCIAL HISTORY: The patient smokes 2 packs of cigarettes per day. She will have anywhere from 6 to 10 beers every day. FAMILY HISTORY: She is adopted, so unknown. PHYSICAL EXAMINATION: VITAL SIGNS: Temperature 97.9, pulse 78, blood pressure 127/79, and 96% oxygen saturation on room air. GENERAL: A 59-year-old woman sitting up in bed comfortably. She appears chronically ill, but nontoxic. She is in no acute distress. SKIN: No jaundice. No rashes were palpable. EYES: No scleral icterus. Extraocular movements intact. ENT: Mucous membranes moist. No oral lesions. LYMPH: No submandibular or supraclavicular lymphadenopathy. Thyroid nontender to palpation. HEART: Regular rate and rhythm. LUNGS: Clear to auscultation bilaterally. ABDOMEN: Nondistended. Bowel sounds are hypoactive, but present. The abdomen is soft. There is tenderness to palpation in the upper abdomen, but no guarding or rebound tenderness. EXTREMITIES: No peripheral edema. VESSELS: Radial pulses 2+ bilaterally. NEUROLOGICAL: Cranial nerves 2 through 12 are intact bilaterally. No focal deficits. LABORATORY STUDIES: WBC 11.3, hemoglobin 14.1, platelets 163, MCV 102. Sodium 128, potassium 3.6, BUN 4, creatinine 0.52. Total bilirubin 1.2, alkaline phosphatase 119, AST 105, ALT 85, albumin 3.6. INR 0.9. Lactic acid 1, lipase 458. Urinalysis negative. Serum alcohol level was negative. IMAGING STUDIES: CT of the abdomen and pelvis from yesterday, as detailed in the HPI. ASSESSMENT AND PLAN: 1. Acute on chronic pancreatitis. Note, the characteristic CT findings of dystrophic calcification of the pancreas, in the absence of significant inflammatory changes. Symptoms do seem consistent with an acute flare of her chronic pancreatitis, with mild lipase elevation. Other lab parameters are all favorable. I agree with IV fluids. She is doing a little better this morning. I advised her to go slow with dietary advancement and not to push it. In the longer term, I emphasized with her the importance of stopping all alcohol and tobacco abuse. She is not very confident that she will be able to accomplish this. 2. LFT elevation. Elevations are mild and stable from presentation yesterday. This likely represents ongoing alcohol daily use. I doubt biliary etiology for this current attack. Note normal platelets and INR suggesting no evidence of any liver dysfunction. 3. Porcelain gallbladder. CT finding suggests hyperdensity in the gallbladder wall, possibly consistent with developing porcelain gallbladder. Again, I think it is less likely that the acute episode is biliary in nature. Surgical referral for porcelain gallbladder could be considered at some point, likely on an outpatient basis. The patient can follow up in the GI Clinic with Dr. Mercado in a few weeks after discharge. Dr. Jones is covering for GI for the weekend. Please call back at anytime with questions or concerns. Job ID: [id number]
--- NOTE | 2019-07-07 13:07 | EKG ---
Test Reason : Blood Pressure : / mmHG Vent. Rate : 088 BPM Atrial Rate : 088 BPM P-R Int : 170 ms QRS Dur : 084 ms QT Int : 374 ms P-R-T Axes : 072 001 046 degrees QTc Int : 452 ms Normal sinus rhythm Possible Left atrial enlargement Septal infarct , age undetermined Abnormal ECG Confirmed by WALKER DOUGLASS DO ([id number]), assignment desk editor VALERIA TYSON ([id number]) on 07/07/2019 1:06:35 PM Referred By: Confirmed By:WALKER DOUGLASS DO
--- NOTE | 2019-07-07 18:58 | PDOC.HOSPP ---
- Subjective Encounter Date: 07/07/19 Encounter Time: 11:30 Subjective: pt still has pain to her abdomen. she is however tolerating her cl diet. - Objective Vital Signs & Weight: Vital Signs (12 hours) Temp Pulse Resp BP Pulse Ox 07/07/19 16:33 98.3 F 92 18 127/79 97 07/07/19 10:56 97.9 F 78 14 127/79 96 07/07/19 08:58 76 07/07/19 08:17 98.4 F 76 16 150/83 H 94 L Weight Admit Weight 93 lb 4 oz Weight 93 lb 4 oz I&O: 07/06/19 07/07/19 07/08/19 06:59 06:59 06:59 Intake Total 2595 2320 Output Total 600 3 Balance 19947 Result Diagrams: 07/06/19 10:35 07/07/19 05:45 Hospitalist ROS - Review of Systems Respiratory: denies: cough, dry, shortness of breath, hemoptysis, SOB with excertion, pleuritic pain, sputum, wheezing, other Cardiovascular: denies: chest pain, palpitations, orthopnea, paroxysmal noc. dyspnea, edema, light headedness, other Gastrointestinal: reports: abdominal pain Genitourinary: denies: dysuria, frequency, incontinence, hematuria, retention, other Musculoskeletal: denies: neck pain, shoulder pain, arm pain, back pain, hand pain, leg pain, foot pain, other - Medication Medications: Active Medications Generic Name Dose Route Start Last Admin Trade Name Freq PRN Reason Stop Dose Admin Amlodipine Besylate 5 mg 07/07/19 09:00 07/07/19 08:58 Norvasc PO 5 mg DAILY SUSANNA Administration Aspirin 325 mg 07/07/19 09:00 07/07/19 08:58 Aspirin PO 325 mg DAILY SUSANNA Administration Diazepam 5 mg 07/07/19 04:00 07/07/19 08:59 Valium PO 5 mg Q4H PRN Administration FOR ASE 10 OR GREATER Famotidine 20 mg 07/06/19 21:00 07/07/19 08:59 Pepcid SLOW IVP 20 mg BID SUSANNA Administration Folic Acid 1 mg 07/07/19 09:00 07/07/19 08:58 Folvite PO 1 mg DAILY SUSANNA Administration Potassium Chloride/Sodium Chloride 1,000 ml in 1,000 mls @ 125 mls/hr 16:15 07/07/19 16:13 Ns 0.9% W/ 20 Meq Kcl IV 1,000 mls .Q8H SUSANNA Administration Thiamine HCl 100 mg/ Sodium 51 mls @ 100 mls/hr 07/06/19 16:30 07/07/19 16:13 Chloride IVPB 51 mls Q24HR SUSANNA Administration Iron/Minerals/Multivitamins 1 tab 07/07/19 09:00 07/07/19 08:58 Theragran M PO 1 tab DAILY SUSANNA Administration Magnesium Oxide 400 mg 07/07/19 09:00 07/07/19 08:58 Magnesium Oxide PO 400 mg DAILY SUSANNA Administration Morphine Sulfate 2 mg 07/06/19 18:08 07/07/19 16:13 Morphine SLOW IVP 2 mg Q4H PRN Administration Moderate to Severe Pain (4-10) Nicotine 21 mg 07/07/19 09:00 07/07/19 10:20 Nicoderm Patch TD Not Given Q24HR SUSANNA - Exam Neck: negative: supple, symmetric, no JVD, no thyromegaly, no lymphadenopathy, no carotid bruit, JVD Heart: negative: RRR, no murmur, no gallops, no rubs, normal peripheral pulses, irregular, diminshed peripheral pulses, murmur present, II/IV, III/IV Respiratory: negative: CTAB, no wheezes, no rales, no ronchi, normal chest expansion, no tachypnea, normal percussion, rales, rhonchi, tachypneic, wheezes Gastrointestinal: soft, tender to palpation Hosp A/P (1) Pancreatitis Code(s): K85.90 - ACUTE PANCREATITIS WITHOUT NECROSIS OR INFECTION, UNSP Status: Acute (2) Alcohol abuse Code(s): F10.10 - ALCOHOL ABUSE, UNCOMPLICATED Status: Chronic (3) Hepatitis C Code(s): B19.20 - UNSPECIFIED VIRAL HEPATITIS C WITHOUT HEPATIC COMA Status: Chronic Qualifiers: (4) Hypertension Code(s): I10 - ESSENTIAL (PRIMARY) HYPERTENSION Status: Chronic (5) Protein-calorie malnutrition, moderate Code(s): E44.0 - MODERATE PROTEIN-CALORIE MALNUTRITION Status: Chronic (6) Tobacco abuse Code(s): Z72.0 - TOBACCO USE Status: Chronic (7) Porcelain gallbladder Code(s): K82.8 - OTHER SPECIFIED DISEASES OF GALLBLADDER Status: Acute (8) Celiac artery stenosis Code(s): I77.4 - CELIAC ARTERY COMPRESSION SYNDROME Status: Acute (9) Elevated LFTs Code(s): R79.89 - OTHER SPECIFIED ABNORMAL FINDINGS OF BLOOD CHEMISTRY Status : Acute - Plan will advance diet if she tolerates. hyponatremia improving. spoke with surgery about her celiac artery stenosis recommended no intervention currently but follow up in the clinic. she has been educated against smoking and drinking. will continue asa. lactic acid normal. No acute hepatitis but elevated lfts appear a alcoholic pattern.
[2019-07-08] MEDS: Morphine 2 MG/ML SYRINGE SLOW IVP PRN ×3 (00:02→09:43)
[2019-07-08] MEDS: NS 0.9% w/ 20 MEQ KCL 1,000 ML/1,000 ML BAG IV SCH ×2 (00:03→09:57)
[2019-07-08 08:47] LABS: Hemoglobin 14.8 g/dL (12.0-16.0); Mean Corpuscular HGB CONC 34.8 g/dL (32.0-36.0); Mean Corpuscular Hemoglobin 36.4 pg (27.0-31.0); Mean Platelet Volume 8.5 fL (7.4-10.4); Platelet Count 135 thou/uL (130-400); RBC Distribution Width 11.7 % (11.5-14.5); Red Blood Cell (RBC) Count 4.07 mill/uL (4.20-5.40); White Blood Cell (WBC) Count 6.8 thou/uL (4.8-10.8)
[2019-07-08] MEDS ORDERED: Polyethylene Glycol 3350 17 GM Packet PO SCH (09:00)
[2019-07-08 09:08] LABS: ALT (SGPT) 100 U/L (8-55); AST (SGOT) 150 U/L (5-34); Albumin 3.7 g/dL (3.4-4.8); Alkaline Phosphatase 115 U/L (40-110); Anion Gap 10 mmol/L (10-20); BUN (Urea Nitrogen) 4 mg/dL (9.8-20.1); Bilirubin, Total 1.2 mg/dL (0.2-1.2); Calc. Creatinine Clearance 81 mL/min (70-130); Calcium 8.5 mg/dL (7.8-10.44); Carbon Dioxide 31 mmol/L (23-31); Chloride 89 mmol/L (98-107); Estimated GFR-MDRD Greater than 90; Globulin 3.3 g/dL (2.4-3.5); Glucose 105 mg/dL (80-115); Sodium 127 mmol/L (136-145)
[2019-07-08] MEDS ORDERED: Potassium Chloride 20 MEQ TAB PO SCH (09:30)
[2019-07-08] MEDS: Magnesium Oxide 400 MG TAB PO SCH (09:42)
[2019-07-08] MEDS: Aspirin 325 MG TAB PO SCH (09:44)
[2019-07-08] MEDS: Diazepam 5 MG TAB PO PRN (09:45)
[2019-07-08] MEDS: Amlodipine 5 MG TAB PO SCH (09:45)
[2019-07-08] MEDS: Folic Acid 1 MG TAB PO SCH (09:45)
[2019-07-08] MEDS: Multivitamin W/ Minerals 1 TAB PO SCH (09:45)
[2019-07-08] MEDS: Famotidine/PF 20 mg/2ml Vial SLOW IVP SCH (09:46)
[2019-07-08] MEDS: Nicotine 21 MG PATCH TD SCH (09:49)
[2019-07-08 10:30] VITALS: BP 120/81; TEMP 97.5
--- NOTE | 2019-07-08 17:24 | DIS ---
DATE OF ADMISSION: 07/06/2019 DATE OF DISCHARGE: 07/08/2019 DISCHARGE DIAGNOSES: 1. Acute on chronic pancreatitis 2. Hyponatremia 3. Hypokalemia, 4. Tobacco abuse 5. Alcohol abuse. CONSULTATIONS: GI with Dr. Prem Sheets. PROCEDURES: None. BRIEF HISTORY OF PRESENT ILLNESS: This is a 59-year-old female with a past medical history of alcohol abuse, tobacco abuse, who presented to the emergency room with abdominal pain, nausea and vomiting. The patient reported a history of pancreatitis in the past. She had a CT scan of her abdomen done in the emergency room which was consistent with chronic pancreatitis. She had a lipase level of 458 on admission. HOSPITAL COURSE: Acute on chronic pancreatitis: The patient was hydrated with IV fluids and given pain medications. GI was consulted and recommended conservative management. She was also given thiamine and folic acid for alcoholism. She tolerated a regular diet on the day of discharge. She was advised to stop drinking alcohol. She was also given a prescription for Creon supplement that she can take to better digest her food. The patient is aware that she needs to stop drinking alcohol and is going to stop on her own. Transaminitis: The patient had elevated LFTs, which improved on the day of discharge. She was advised to have repeat LFTs done as an outpatient in a week. Hyponatremia: The patient had a sodium of like 124 on admission. She was given IV fluids with improvement in her sodium to 128. Her sodium dropped to 127 on the day of discharge. She likely has a component of beer potomania from alcoholism. She was advised to drink water upon discharge and to cut her alcohol consumption. She can have a repeat BMP done in a week. Hypokalemia: The patient's potassium level was low at 3.0. She was given potassium supplement on the day of discharge. She was advised to eat more tomatoes or bananas and have her BMP repeated in a week. Possible foreign body ingestion: The patient's CT scan of her abdomen was noted to have multiple hyperdense discs from 1.5 to 1.8 cm in diameter. The patient denied ingestion of any foreign objects. Common iliac artery stenosis: The patient was noted to have high-grade stenosis in the common iliac arteries. Prior hospitalist had discussed with surgery and recommended no further intervention for this. Tobacco abuse: The patient refused tobacco cessation on discharge. DISCHARGE PHYSICAL EXAMINATION: VITAL SIGNS: Temperature 97.5, heart rate 89, respiratory rate 16, O2 saturation 99% on room air, blood pressure 120/81. GENERAL: The patient is alert, awake, oriented x3. CVS: Regular rate and rhythm with no murmurs, rubs, or gallops. LUNGS: Clear to auscultation bilaterally. ABDOMEN: Mild epigastric tenderness, positive bowel sounds, soft. EXTREMITIES: No edema. PERTINENT LABORATORY DATA: CBC 07/07: Unremarkable. CMP 07/07: Sodium 127, potassium 3.0, chloride 89, creatinine 0.49, AST 150, ALT 100, alkaline phosphatase 115. UA 07/05: Negative. Urine sodium: 69. Urine osmolarity: 229. IMAGING STUDIES: CT abdomen and pelvis: Findings of chronic pancreatitis. No significant acute inflammation evident. Hyperdensity of the gallbladder wall may reflect developing porcelain gallbladder. Very large number of ingested small calcific density discs. Prominent atherosclerosis with high-grade stenosis of the common iliac artery origins. DISCHARGE CONDITION: Stable. ACTIVITY: As tolerated. DIET: Low-fat diet. DISCHARGE MEDICATIONS: New prescriptions: 1. Folic acid 1 mg p.o. daily. 2. Creon supplement one capsule p.o. t.i.d. 3. Thiamine 100 mg p.o. daily. DISCHARGE INSTRUCTIONS: The patient to follow up with her PCP in a week and have her LFTs and BMP repeated. She was given thiamine and folic acid supplements. The patient refused tobacco cessation on discharge. Job ID: [id number] [facility]
== END 2019-07-08 10:25 | disposition home or self-care (01) | DRG 439 ==
LOC: ERS 09:36 → SURG A 11:21 → ERS 13:17
PROVIDERS: ADMIT Internal Medicine; ATTEND Internal Medicine
PROC: HZ2ZZZZ Detoxification Services for Substance Abuse Treatment (ICD-10-PCS; principal; 2019-07-06)
DX: K85.90 Acute pancreatitis without necrosis or infection, unspecified (principal); E87.1 Hypo-osmolality and hyponatremia; E44.0 Moderate protein-calorie malnutrition; I77.4 Celiac artery compression syndrome; Z68.1 Body mass index [BMI] 19.9 or less, adult; K86.1 Other chronic pancreatitis; F17.210 Nicotine dependence, cigarettes, uncomplicated; I10 Essential (primary) hypertension; E87.6 Hypokalemia; F10.10 Alcohol abuse, uncomplicated; R74.0 Nonspecific elevation of levels of transaminase and lactic acid dehydrogenase [LDH]; T18.2XXA Foreign body in stomach, initial encounter; I77.1 Stricture of artery; K82.8 Other specified diseases of gallbladder; B18.2 Chronic viral hepatitis C; Z86.711 Personal history of pulmonary embolism; Z88.0 Allergy status to penicillin; Z71.41 Alcohol abuse counseling and surveillance of alcoholic; Z71.6 Tobacco abuse counseling
CPT/HCPCS: 36415; 51701; 74177; 80053; 80061; 80307; 81003; 83605; 83690; 83930; 83935; 84300; 85025; 85027; 85610; 85730; 93005; 96361; 96374; A4353; J2270; J3411; J3475; J3480; J3490; Q9967; S0028

== ENCOUNTER 2019-11-12 18:33 | Inpatient (IN) | payer OTHER, SELFPAY ==
[2019-11-12] MEDS ORDERED: Morphine 4 MG/ML VIAL ONE ×2 (18:52→21:06)
[2019-11-12] MEDS ORDERED: Ondansetron PF 4 MG/2 ML Vial ONE ×3 (18:52→20:52)
[2019-11-12 19:10] LABS: #Eosinphils 0.1 thou/uL (0.0-0.7); #Lymphocytes 1.7 thou/uL (1.20-3.40); #Monocytes 0.5 thou/uL (0.11-0.59); #Neutrophils 6.8 thou/uL (1.40-6.50); %Basophils 0.5 % (0.0-1.0); %Eosinophils 1.4 % (0.0-10.0); %Lymphocytes 18.6 % (21.0-51.0); %Monocytes 4.9 % (0.0-10.0); %Neutrophils 74.5 % (42.0-75.0); Mean Corpuscular HGB CONC 35.3 g/dL (32.0-36.0); Mean Corpuscular Hemoglobin 34.7 pg (27.0-31.0); Mean Corpuscular Volume 98.3 fL (78.0-98.0); Mean Platelet Volume 8.2 fL (7.4-10.4); Platelet Count 236 thou/uL (130-400); RBC Distribution Width 10.7 % (11.5-14.5); Red Blood Cell (RBC) Count 4.33 mill/uL (4.20-5.40); White Blood Cell (WBC) Count 9.1 thou/uL (4.8-10.8)
--- NOTE | 2019-11-12 19:18 | RAD ---
FRONTAL RADIOGRAPH CHEST: Date: 11-12-2019 Comparison: 07-22-18 History: Pain FINDINGS: There is widening of the acromioclavicular interspace with evidence of an old clavicle fracture dista lly on the left. There is mild increased linear interstitial density, stable. No pneumothorax, pleura l fluid, focal consolidation or alveolar edema. IMPRESSION: No acute findings. POS: OFF
[2019-11-12 19:33] LABS: ALT (SGPT) 28 U/L (8-55); AST (SGOT) 40 U/L (5-34); Albumin 4.1 g/dL (3.4-4.8); Alkaline Phosphatase 108 U/L (40-110); Anion Gap 15 mmol/L (10-20); BUN (Urea Nitrogen) 4 mg/dL (9.8-20.1); Bilirubin, Total 0.4 mg/dL (0.2-1.2); Calc. Creatinine Clearance 0 mL/min (70-130); Calcium 9.4 mg/dL (7.8-10.44); Carbon Dioxide 25 mmol/L (23-31); Chloride 89 mmol/L (98-107); Cholesterol 144 mg/dl (< 200 Desired); Estimated GFR-MDRD Greater than 90; Globulin 3.9 g/dL (2.4-3.5); Glucose 140 mg/dL (80-115); HDL Cholesterol 73 mg/dL (>60 Neg Risk); LDL Cholesterol, Calculated 59 mg/dL; Potassium 3.5 mmol/L (3.5-5.1); Sodium 125 mmol/L (136-145); Triglycerides 58 mg/dL (Less than 150)
[2019-11-12 20:20] LABS: Bacteria/HPF None Seen HPF (None Seen); Bilirubin Negative (Negative); Blood, Urine Negative (Negative); Clarity Clear (Clear); Glucose, Urine (Dipstick) Normal (Negative); Ketone, Urine Trace mg/dL (Negative); Leukocyte Negative Leu/uL (Negative); Nitrite Negative (Negative); Protein, Urine (Dipstick) 30 mg/dL (Neg-Trace); RBC/HPF 0-3 HPF (0-3); Specific Gravity, Urine 1.008 (1.002-1.036); Squamous Epithelial 0-3 HPF (0-3); Urobilinogen Normal mg/dL (Less than 2); WBC/HPF 0-3 HPF (0-3); pH, Urine 6.5 (5.0-9.0)
[2019-11-12] MEDS ORDERED: Nicotine 14 MG PATCH ONE (20:52)
--- NOTE | 2019-11-12 21:09 | PDOC.HHP ---
Hospitalist HPI - History of Present Illness Abdominal pain and back pain History of Present Illness: PCP: Christiane The patient is a 59-year-old female with a past medical history significant for chronic pancreatitis, alcohol abuse, hypertension, COPD and pulmonary embolism ( not on anticoagulation) that presents to the ER for the above complaint. Patient reports developing the acute onset of abdominal pain 2 to 3 hours prior to arrival to the ER. Patient reports that she felt nauseated developed epigastric and back pain, described as stabbing pain, constant, exacerbated and relieved by nothing. She states "I knew exactly what it was", referring to previous bouts of pancreatitis in the past. Her last bout, she thinks was in June 2019. She admits to daily alcohol intake, reporting 3-4 beers daily. She reports associated vomiting, denies any hematemesis or diarrhea. She denies any urinary symptoms. She denies any fever or chills. She denies any chest pain or shortness of breath. ED Course: VITAL SIGNS WedNov 12, 2019 18:40 JHOANA Huynh Taylor BP: 139/79, Pulse: 78, Resp: 13, Temp: 98.5 (Oral), Pain: 10, O2 sat: 94 on ( Room Air), Time: 11/12/2019 18:40. VITAL SIGNS WedNov 12, 2019 19:40 JHOANA Bucio Susannah BP: 137/77, Pulse: 85, Resp: 19, Temp: 98.3 (Oral), Pain: 10, O2 sat: 94 on ( Room Air), Time: 11/12/2019 19:40. VITAL SIGNS WedNov 12, 2019 20:08 JHOANA Bucio Susannah BP: 144/74, Pulse: 80, Resp: 21, Temp: 98.3 (Oral), Pain: 8, O2 sat: 97 on ( Room Air), Time: 11/12/2019 20:08. VITAL SIGNS WedNov 12, 2019 20:58 JHOANA Bucio Susannah BP: 148/75, Pulse: 85, Resp: 19, Pain: 10, O2 sat: 96 on (Room Air), Time: 2019 20:58. [place] Nov 12, 2019 21:03 Drug Name Dose Ordered Route Status Time ondansetron HCl intravenous 8 mg IV Push Acknowledged 20:51 11/12/2019 *sodium chloride 0.9 % intravenous 1 L IV Fluid Infusion Acknowledged 20:51 nicotine 1 Patch Transdermal Given 20:57 11/12/2019 morphine injection 8 mg IV Push Given 20:56 11/12/2019 lactated Ringers intravenous 160 mL/hr IV Fluid Infusion Given 20:03 11/12/2019 ondansetron HCl intravenous 8 mg IV Push Given 19:08 11/12/2019 morphine injection 8 mg IV Push Given 19:07 11/12/2019 lactated Ringers intravenous 1 L IV Fluid Infusion Given 19:03 11/12/2019 Hospitalist ROS - Review of Systems All other systems reviewed; all pertinent +/- noted in HPI/Subj - Medication Medications: amLODIPine TABLET : Strength - 2.5 mg : ORAL Patient Dose: 5 mg Oral once a day. Aspirin 325mg oral daily. Valium oral tablet : Strength - 5 mg : ORAL Patient Dose: 1 tab(s) Oral once a day PRN. Allergies: Penicillins Hospitalist History - Past Medical History Source: patient Other Medical History: MEDICAL HISTORY chronic pancreatitis, hypertension, chronic obstructive pulmonary disease, pulmonary embolism. PANCREATITIS. FEMALE SURGICAL HISTORY Tubal Ligation. PSYCHIATRIC HISTORY no history of suicidal ideations, No history of homicidal ideations, Psychiatric history includes, anxiety, depression. SOCIAL HISTORY Patient drinks every day, less than 3 drinks per day, Alcohol history notes: beer, Patient denies drug use, Patient currently uses tobacco, smokes cigarettes , daily, Patient has smoked for 30 years, Patient smokes 2 packs per day. FAMILY HISTORY Non contributory to this case - Exam General Appearance: awake alert General - other findings: Uncomfortable, non toxic appearing Eye: anicteric sclera ENT: normocephalic atraumatic Neck: supple, no JVD, no lymphadenopathy Heart: RRR, no gallops, no rubs, normal peripheral pulses, murmur present, III/ IV Respiratory: CTAB, no wheezes, no rales, no ronchi, normal chest expansion, no tachypnea Gastrointestinal: soft, non-distended, normal bowel sounds, no bruit, no guarding, no rigidity, tender to palpation Extremities: no edema Skin: no rashes Neurological: normal sensation to touch, no weakness, no focal deficits Musculoskeletal: normal tone, normal strength Psychiatric: normal affect, A&O x 3 Hospitalist Results - Labs Result Diagrams: 11/12/19 19:00 11/12/19 19:00 Lab results: WBC 9.1 thou/uL (4.8-10.8) 11/12/19 19:00 Hgb 15.0 g/dL (12.0-16.0) 11/12/19 19:00 Hct 42.6 % (36.0-47.0) 11/12/19 19:00 MCV 98.3 fL (78.0-98.0) H 11/12/19 19:00 Plt Count 236 thou/uL (130-400) 11/12/19 19:00 Neutrophils % 74.5 % (42.0-75.0) 11/12/19 19:00 Sodium 125 mmol/L (136-145) L 11/12/19 19:00 Potassium 3.5 mmol/L (3.5-5.1) 11/12/19 19:00 Chloride 89 mmol/L (98-107) L 11/12/19 19:00 Carbon Dioxide 25 mmol/L (23-31) 11/12/19 19:00 BUN 4 mg/dL (9.8-20.1) L 11/12/19 19:00 Creatinine 0.58 mg/dL (0.6-1.1) L 11/12/19 19:00 Glucose 140 mg/dL (80-115) H 11/12/19 19:00 Calcium 9.4 mg/dL (7.8-10.44) 11/12/19 19:00 Total Bilirubin 0.4 mg/dL (0.2-1.2) 11/12/19 19:00 AST 40 U/L (5-34) H 11/12/19 19:00 ALT 28 U/L (8-55) 11/12/19 19:00 Alkaline Phosphatase 108 U/L (40-110) 11/12/19 19:00 Troponin I Less than 0.010 ng/mL (< 0.028) 11/12/19 19:00 Serum Total Protein 8.0 g/dL (6.0-8.3) 11/12/19 19:00 Albumin 4.1 g/dL (3.4-4.8) 11/12/19 19:00 Lipase 280 U/L (8-78) H 11/12/19 19:00 Urine Ketones Trace mg/dL (Negative) A 11/12/19 20:04 Urine Blood Negative (Negative) 11/12/19 20:04 Urine Nitrite Negative (Negative) 11/12/19 20:04 Ur Leukocyte Esterase Negative Gema/uL (Negative) 11/12/19 20:04 Urine RBC 0-3 HPF (0-3) 11/12/19 20:04 Urine WBC 0-3 HPF (0-3) 11/12/19 20:04 Ur Squamous Epith Cells 0-3 HPF (0-3) 11/12/19 20:04 Urine Bacteria None Seen HPF (None Seen) 11/12/19 20:04 - EKG Interpretation EK lead EKG interpreted by Emergency Department Physician at time of study, 12 lead EKG shows normal sinus rhythm, Interpretation:, Conduction with, ST segments normal, T waves normal, Drew normal, Clinical impression:, No acute findings for ischemia at this time. HR:78. - Radiology Interpretation Chest x-ray Status: report reviewed by me Hospitalist H&P A/P - Problem (1) Acute pancreatitis Code(s): K85.90 - ACUTE PANCREATITIS WITHOUT NECROSIS OR INFECTION, UNSP Status: Acute Assessment and Plan: We will admit to the medical floor, inpatient status.Expected length of stay greater than 2 midnights. Patient presented afebrile, normal blood pressure, normal pulse, normal respirations. Has a history of pancreatitis and alcohol abuse. Lipase 280, sodium 125, WBCs 9.1, UA unremarkable. Patient received 2 L IV fluids in the ER. We will continue IV fluids, goal to maintain urine output 0.5 mls per kilogram per hour. We will add antiemetics and analgesics. Will order upper quadrant ultrasound. Will consult GI. Will leave n.p.o. (2) Hyponatremia Code(s): E87.1 - HYPO-OSMOLALITY AND HYPONATREMIA Status: Acute Assessment and Plan: Likely secondary to daily alcohol intake. We will check serum and blood osmolality, urine sodium. (3) Alcohol abuse Code(s): F10.10 - ALCOHOL ABUSE, UNCOMPLICATED Status: Chronic Assessment and Plan: Patient reports drinking at least 3-4 beers per day, last drink this morning. Will start GUTIERREZ protocol. Will check B12 and folate level. Will give banana bag. (4) HTN (hypertension) Code(s): I10 - ESSENTIAL (PRIMARY) HYPERTENSION Status: Chronic Assessment and Plan: Patient presented with normal blood pressure. Patient takes amlodipine at home. Will restart when appropriate. (5) COPD (chronic obstructive pulmonary disease) Status: Chronic Assessment and Plan: Patient reports well controlled. Has as needed albuterol inhaler at home which she does not use. We will continue to monitor respiratory status. (6) Tobacco abuse Code(s): Z72.0 - TOBACCO USE Status: Chronic Assessment and Plan: Reports 1.5 pack/day history. Unwilling to quit. Start in NRT therapy. 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 - Plan Plan: Consult PT. Lovenox for DVT prophylaxis. Protonix for GI prophylaxis. Full code. Discussed case with Dr. Lira.
[2019-11-12] MEDS ORDERED: Senokot S 8.6-50 MG TAB PO PRN (21:54)
[2019-11-12] MEDS ORDERED: Ondansetron ODT 4 MG TAB PO PRN (21:54)
[2019-11-12] MEDS ORDERED: Ondansetron PF 4 MG/2 ML Vial IVP PRN (21:54)
[2019-11-12] MEDS ORDERED: Calcium Carbonate 500 MG ChewTAB PO PRN (21:54)
[2019-11-12] MEDS ORDERED: Acetaminophen 325 MG TAB PO PRN (21:54)
[2019-11-12] MEDS ORDERED: Guaifenesin DM 100-10/5 ML UDCUP PO PRN (21:54)
[2019-11-12] MEDS ORDERED: Acetaminophen 650 MG Suppository PR PRN (21:54)
[2019-11-12] MEDS ORDERED: Promethazine HCl 12.5 MG in Sodium Chloride 0.9% 50 ML IVPB PRN (21:59)
[2019-11-12] MEDS ORDERED: Diazepam 5 MG TAB PO PRN (22:20)
[2019-11-12] MEDS ORDERED: Diazepam 5 MG TAB PO SCH (22:30)
[2019-11-12] MEDS ORDERED: Thiamine HCl 200 MG/2 ML VIAL IM SCH (22:30)
[2019-11-12] MEDS: Sodium Chloride 0.9% 1,000 ML IV SCH (22:42)
[2019-11-12 23:09] VITALS: BMI 17.8
[2019-11-12 23:13] LABS: Acetaminophen Less than 6.0 mcg/mL (10.0-30.0); Alcohol Less than 10 mg/dL (Less than 10); Anion Gap 13 mmol/L (10-20); BUN (Urea Nitrogen) Less than 4 mg/dL (9.8-20.1); Calc. Creatinine Clearance 73 mL/min (70-130); Calcium 8.6 mg/dL (7.8-10.44); Carbon Dioxide 26 mmol/L (23-31); Chloride 90 mmol/L (98-107); Estimated GFR-MDRD Greater than 90; Glucose 184 mg/dL (80-115); Salicylate Less than 8.0 mg/dL (15.0-30.0); Sodium 126 mmol/L (136-145)
[2019-11-12 23:15] LABS: Troponin I 0.015 ng/mL (< 0.028)
[2019-11-12 23:25] LABS: Amphetamine Not Detected (NotDetected); Barbiturates Screen Not Detected (NotDetected); Benzodiazepine Screen Detected (NotDetected); Cocaine Metabolite Screen Not Detected (NotDetected); Medtox Control Line Valid? VALID (VALID); Medtox Reader # READER 4; Methadone Not Detected (NotDetected); Methamphetamine Not Detected (NotDetected); Opiate Screen Detected (NotDetected); Oxycodone Screen Not Detected (NotDetected); Phencyclidine (PCP) Not Detected (NotDetected); THC/Cannabinoid Screen Not Detected (NotDetected); Tricyclic Screen Not Detected (NotDetected)
[2019-11-12] MEDS ORDERED: Electrolyte Replacement Protoc 1 EACH EACH FS SCH (23:30)
[2019-11-12] MEDS ORDERED: Electrolyte Replacement Protocol FS PRN (23:45)
[2019-11-13] MEDS: Morphine 4 MG/ML VIAL SLOW IVP PRN ×5 (02:43→22:56)
[2019-11-13] MEDS: Sodium Chloride 0.9% 1,000 ML IV SCH ×3 (02:44→18:54)
[2019-11-13] MEDS ORDERED: Diazepam 5 MG TAB PO PRN (04:00)
[2019-11-13] MEDS ORDERED: Potassium Chloride 20 MEQ TAB PO SCH (04:45)
[2019-11-13] MEDS ORDERED: Magnesium 2 GM/50 ML 2 GM in Premix Bag 1 BAG IVPB SCH (04:45)
[2019-11-13] MEDS ORDERED: Magnesium Sulfate 4 GM in Sodium Chloride 0.9% 250 ML 250 ML IVPB SCH (05:00)
[2019-11-13] MEDS: Nicotine 14 MG PATCH TD SCH (05:27)
[2019-11-13 06:05] LABS: #Eosinphils 0.1 thou/uL (0.0-0.7); #Lymphocytes 2.4 thou/uL (1.20-3.40); #Monocytes 0.6 thou/uL (0.11-0.59); #Neutrophils 5.9 thou/uL (1.40-6.50); %Basophils 0.5 % (0.0-1.0); %Eosinophils 0.7 % (0.0-10.0); %Lymphocytes 27.1 % (21.0-51.0); %Monocytes 6.4 % (0.0-10.0); %Neutrophils 65.2 % (42.0-75.0); Hemoglobin 14.2 g/dL (12.0-16.0); Mean Corpuscular HGB CONC 34.5 g/dL (32.0-36.0); Mean Corpuscular Hemoglobin 34.2 pg (27.0-31.0); Mean Corpuscular Volume 99.1 fL (78.0-98.0); Mean Platelet Volume 8.5 fL (7.4-10.4); Platelet Count 227 thou/uL (130-400); RBC Distribution Width 10.8 % (11.5-14.5); Red Blood Cell (RBC) Count 4.14 mill/uL (4.20-5.40)
[2019-11-13 06:14] LABS: ALT (SGPT) 23 U/L (8-55); AST (SGOT) 32 U/L (5-34); Albumin 3.9 g/dL (3.4-4.8); Alkaline Phosphatase 96 U/L (40-110); Anion Gap 13 mmol/L (10-20); BUN (Urea Nitrogen) Less than 4 mg/dL (9.8-20.1); Bilirubin, Total 0.5 mg/dL (0.2-1.2); Calc. Creatinine Clearance 79 mL/min (70-130); Calcium 8.6 mg/dL (7.8-10.44); Carbon Dioxide 28 mmol/L (23-31); Chloride 95 mmol/L (98-107); Estimated GFR-MDRD Greater than 90; Globulin 3.6 g/dL (2.4-3.5); Glucose 129 mg/dL (80-115); Lipase 161 U/L (8-78); Potassium 3.5 mmol/L (3.5-5.1); Protein, Total 7.5 g/dL (6.0-8.3); Sodium 132 mmol/L (136-145)
--- NOTE | 2019-11-13 07:56 | ULT ---
EXAM: US Gallbladder RUQ CLINICAL HISTORY: Pancreatitis. COMPARISON: None. FINDINGS: Pancreas: Limited evaluation the pancreatic parenchyma. Mild heterogeneity may represent peripancrea tic versus intraparenchymal edema. Better interrogation with MRI or CT Liver:Normal hepatic parenchymal echotexture. No hepatic masses. Intrahepatic biliary dilatation is n ot appreciated. Gallbladder: Gallbladder wall is thickened measuring 0.83 cm. There is an echogenic focus within the gallbladder may represent a small gallstone. No significant pericholecystic fluid. Hurd's sign:Positive Portal Vein: Patent. Appropriate directional flow Bile ducts: 0.8 cm common bile duct diameter Right kidney: No hydronephrosis. Right kidney measures 10.4 cm in length. IMPRESSION: Sonographic evidence of cholelithiasis, cholecystitis and possible choledocholithiasis. Consider GI c onsultation.
--- NOTE | 2019-11-13 08:12 | PDOC.HOSPP ---
- Subjective Encounter Date: 11/13/19 Encounter Time: 08:08 Subjective: Patient reports abdominal discomfort due to having the abdominal ultrasound done this morning. States the pain is across her mid abdomen and wraps around to the left side of her back. Its aching in nature, 8/10 in severity. She is concerned about her diazepam which she states Dr. Grande has put her one. She was given a dose yesterday. Complains of a decreased appetite but denies any n/v. States her fevers have settled since being in the hospital. She has been urinating without difficulty and denies any hematuria. Reports her last beer was yesterday morning. She typically has 3-6 beers a day and drinks most but not all days. She has had issues with tremors when she doesn't drink but denies any history of seizures due to alcohol withdrawal. Today she denies any tremors. - Objective Vital Signs & Weight: Vital Signs (12 hours) Temp Pulse Resp BP BP Pulse Ox 11/13/19 07:29 97.4 F L 70 16 125/72 95 11/13/19 04:30 97.9 F 99 18 151/71 H 92 L 11/12/19 23:52 95 11/12/19 22:30 97.9 F 79 18 166/80 H 95 Weight Weight 100 lb 8 oz Result Diagrams: 11/13/19 05:41 11/13/19 05:41 Additional Labs: Accuchecks 11/13/19 04:43 POC Glucose 137 H Radiology Reviewed by me: No (Abdo US pending) EKG Reviewed by me: Yes (NSR< HR 78.) Hospitalist ROS - Review of Systems Constitutional: reports: malaise. denies: fever, chills, sweats, weakness, other Respiratory: denies: cough, dry, shortness of breath, hemoptysis, SOB with excertion, pleuritic pain, sputum, wheezing, other Gastrointestinal: reports: nausea, abdominal pain Genitourinary: denies: dysuria, frequency, incontinence, hematuria, retention, other - Medication Medications: Active Medications Generic Name Dose Route Start Last Admin Trade Name Freq PRN Reason Stop Dose Admin Sodium Chloride 1,000 mls @ 150 mls/hr 11/12/19 22:00 11/13/19 02:44 Normal Saline 0.9% IV 1,000 mls .[id number] SUSANNA Administration Morphine Sulfate 4 mg 11/12/19 21:58 11/13/19 06:51 Morphine SLOW IVP 4 mg Q4H PRN Administration Severe Pain (7-10) Nicotine 14 mg 11/13/19 05:30 11/13/19 05:27 Nicoderm Patch TD 14 mg Q24HR SUSANNA Administration - Exam General Appearance: NAD Eye: PERRL, anicteric sclera ENT: normocephalic atraumatic, moist mucosa Neck: supple, no lymphadenopathy Heart: RRR, normal peripheral pulses Respiratory: CTAB, no wheezes, no rales, normal chest expansion, no tachypnea Gastrointestinal: soft, non-distended, tender to palpation, voluntary guarding Gastrointestinal - other findings: left CVA tenderness Extremities: no edema Skin: normal turgor, no rashes Neurological: cranial nerve grossly intact, normal sensation to touch, no weakness, no focal deficits Musculoskeletal: normal tone, normal strength, no muscle wasting Psychiatric: normal affect, normal behavior, A&O x 3 Hosp A/P (1) Hypomagnesemia Code(s): E83.42 - HYPOMAGNESEMIA Status: Acute Plan: Receiving Mg+ replacement at present. Continue to monitor and replace as necessary. (2) Acute on chronic pancreatitis Code(s): K85.90 - ACUTE PANCREATITIS WITHOUT NECROSIS OR INFECTION, UNSP; K86.1 - OTHER CHRONIC PANCREATITIS Status: Acute Plan: Continue pain control and IV fluids. Awaiting abdo US results. Awaiting GI review. Will likely require additional imaging re: CT scan. Continue to monitor LFTs. (3) Hyponatremia Code(s): E87.1 - HYPO-OSMOLALITY AND HYPONATREMIA Status: Acute Plan: Likely ETOH induced. Slowly improving, continue to monitor. (4) Alcohol abuse Code(s): F10.10 - ALCOHOL ABUSE, UNCOMPLICATED Status: Chronic Plan: ASE protocol initiated. PRN ativan. (5) COPD (chronic obstructive pulmonary disease) Status: Chronic (6) Anxiety and depression Code(s): F41.8 - OTHER SPECIFIED ANXIETY DISORDERS Status: Chronic (7) Hx of pulmonary embolus Code(s): Z86.711 - PERSONAL HISTORY OF PULMONARY EMBOLISM Status: Chronic Plan: On chronic anticoagulation. (8) Hypertension Code(s): I10 - ESSENTIAL (PRIMARY) HYPERTENSION Status: Chronic Qualifiers: Hypertension type: essential hypertension Qualified Code(s): I10 - Essential (primary) hypertension Plan: Monitor BP. Home meds reconciled. - Plan PT/OT ADDENDUM: US imaging has showed cholelithiasis/cholecystitis and possible choledocholithiasis. IV antibiotics initiated. Further recommendations as per GI team. Dr. Skelton - H&P reviewed, pt c/o nausea nad worsening pain after ultrasound. She reports onset of sx was yesterday morning and has vomited several times VS reviewed Gen - cachectic female that appears uncomfortable but no extreme distress Lungs -ctab heart - nl s1/s2, no significant murmur Abd +bs, soft, ttp ext - no edema Imp - agree with above - Pancreatitis - concerning for choledocholithiasis - start cefepime and monitor for signs of infection - GI consult -> ERCP - IVF - pain and nausea management Hyponatremia - hypovolemic hyponatremia and possibly a component of beer potomania - IVF hydration and monitor Daily alcohol use - monitor for sx of withdrawal = prn valium or ativan - continue supplements dvt prophy - lovenox gi prophy - protonix code status full pt at high risk in current condition reviewed plan of care with patient who demonstrates understanding and agrees, no questions or further needs at end of eval. agree with documenation by DARRICK Jensen
[2019-11-13] MEDS: Multivitamin W/ Minerals 1 TAB PO SCH (08:46)
[2019-11-13] MEDS: Enoxaparin Sodium 40 MG/0.4 ML SYRINGE SC SCH (08:46)
[2019-11-13] MEDS: Thiamine 100 MG TAB PO SCH (08:46)
[2019-11-13] MEDS: Magnesium Oxide 400 MG TAB PO SCH (08:46)
[2019-11-13] MEDS: Folic Acid 1 MG TAB PO SCH (08:46)
[2019-11-13] MEDS: Pantoprazole 40 MG VIAL IVP SCH (08:47)
[2019-11-13] MEDS ORDERED: Amlodipine 5 MG TAB PO SCH (09:00)
[2019-11-13] MEDS: Cefepime 2 GM in Sodium Chloride 0.9% 100 ML IVPB SCH ×2 (12:08→17:40)
[2019-11-13] MEDS ORDERED: Acetaminophen 650 MG Suppository PR PRN (12:21)
[2019-11-13] MEDS: Lorazepam 2 MG/ML VIAL SLOW IVP PRN (13:51)
--- NOTE | 2019-11-13 16:15 | MRI ---
MRI Abdomen WO Con History: Evaluate for choledocholithiasis Comparison: Right upper quadrant ultrasound same day Findings: MRI of the abdomen was performed without intravenous contrast. 3-D rendering for MRCP was o btained. No intrahepatic or extrahepatic biliary dilatation. Common bile duct measures up to 5 mm. No choledoc holithiasis. There is dilatation of the pancreatic duct throughout the pancreatic uncinate process, head and tail with multiple peripheral outpouchings of side duct dilatation. T2 hyperintense cystic structure within the dorsal uncinate process measuring 1 cm. There is also a 1.1 cm T2 hyperintense structure w ithin the ventral uncinate process. Beaded appearance of the pancreatic duct. No hydronephrosis. No dilated loops of bowel in the abdomen. Markedly pericholecystic inflammation. Impression: 1. Moderate pericholecystic edema suggesting acute cholecystitis. 2. No intrahepatic or extrahepatic biliary dilatation. 3. Evidence of chronic pancreatitis with beaded appearance of the dilated pancreatic duct. 4. Dorsal and ventral uncinate process markedly T2 hyperintense cystic foci. Nonemergent follow-up pa ncreatic protocol MRI recommended.
--- NOTE | 2019-11-13 16:52 | CON ---
DATE OF CONSULTATION: 11/13/2019 REASON FOR CONSULTATION: [id number] pancreatitis. CONSULTING PROVIDER: Germain Hunt NP HISTORY OF PRESENT ILLNESS: The patient is a 59-year-old female with past medical history of hypertension, COPD, pulmonary embolism (not on anticoagulation), alcohol abuse, and chronic pancreatitis, presenting with acute onset of midepigastric abdominal pain. She states that she was in her usual state of health yesterday (with no abdominal pain) when she experienced acute onset of midepigastric abdominal pain that she characterized as a sharp/stabbing type sensation, would radiate to the left upper quadrant and mid back, was constant with waxing/waning severity, and reached a severity of 10/10. When compared to her prior bouts of pancreatitis, she stated that this was exactly like what she had experienced in the past and ultimately what brought her to the hospital sooner than prior episodes due to the character and location of this pain. She denied any clear exacerbating or alleviating factors, but associated symptoms included nausea with vomiting with nonbloody emesis, increased dizziness, generalized weakness, and increased anxiety. However, she denied any hematemesis, melena, hematochezia, fevers, chills, odynophagia, or weight loss. Of note, the patient also states that she had increased right upper quadrant abdominal pain that occurred within the last 1 to 2 weeks, that she characterized as a stabbing type pain, but resolved within 4 hours and has not recurred. Upon review of the patient's chart, the patient's most recent bout of pancreatitis was in 06/2019, for which she was admitted to [facility] for a few days and responded to more conservative management. At that time, she was drinking 6 to 10 beers daily with recommendations to stop all alcohol consumption altogether. However, prior to this admission, she states that she had cut down, but was still drinking 3 to 6 beers daily. REVIEW OF SYSTEMS: A 10-category review of systems was obtained with all responses negative except for the pertinent positives as listed in HPI. PAST MEDICAL HISTORY: As per HPI. PAST SURGICAL HISTORY: Bilateral tubal ligation. FAMILY HISTORY: Denies any GI malignancies. SOCIAL HISTORY: She drinks approximately 3 to 6 beers daily, although sometimes more on the weekends. She currently smokes around 2 packs per day, but had been smoking more in the recent past. She denies any illicit drug use. OUTPATIENT MEDICATIONS: Reviewed. ALLERGIES: PENICILLIN. PHYSICAL EXAMINATION: VITAL SIGNS: Temperature 98.3, pulse 75, blood pressure 161/80, respiratory rate 18, and saturating 96% on room air. GENERAL: The patient was lying in bed, in no acute distress. Alert and oriented x4. HEENT: Normocephalic and atraumatic. Neck is supple. No JVD or scleral icterus noted. CARDIOVASCULAR: Regular rate and rhythm with no discernable murmurs, gallops, or rubs. RESPIRATORY: Clear to auscultation bilaterally with no discernable wheezes or rales. ABDOMEN: Normoactive bowel sounds. Soft, nondistended. Tenderness to palpation in the midepigastric and left upper quadrant. EXTREMITIES: No cyanosis, clubbing, or edema. LABORATORY DATA: CBC with a white blood cell count of 9, hemoglobin 14.2, hematocrit 41, and platelets 237. Chemistry with a sodium of 132, potassium 3.5 , chloride 95, CO2 of 28, BUN less than 4, creatinine 0.54, and glucose 124. AST 32, ALT 23, alkaline phosphatase 96, total bilirubin 0.5, albumin 3.9, and lipase 280 on admission. Drug of abuse screen was positive for benzodiazepines and opiates. IMAGING DATA: Right upper quadrant ultrasound was performed on 11/13/2019, which showed mild heterogeneity of the pancreatic parenchyma, although limited given the ultrasound study. There were no hepatic masses or intrahepatic dilatations seen ; however, the gallbladder wall was thickened to 8 mm with no presence of pericholecystic fluid, but positive Hurd sign. The common bile duct was also mildly dilated to 8 mm in size with no discernible stone seen during this examination. ASSESSMENT AND PLAN: The patient is a 59-year-old female with past medical history of hypertension, chronic obstructive pulmonary disease, pulmonary embolism, alcohol abuse, and chronic pancreatitis, presenting with an [id number]-nfolyti pancreatitis picture. [id number] pancreatitis: The patient is presenting with acute onset of midepigastric abdominal pain, occurring yesterday, that she characterized as a sharp/stabbing type sensation and radiated to the left upper quadrant and back, consistent with her prior bouts of pancreatitis in the past. On evaluation of her labs on admission, she did have a significantly elevated lipase that does meet criteria for acute pancreatitis. At this time, the more likely explanation for her acute episode of pancreatitis would be continued alcohol and tobacco use that can further exacerbate pancreatitis. However, she does have imaging findings, showing mild dilation of the common bile duct, which is concerning for the presence of choledocholithiasis on review of her labs, she has normal LFTs at the current point in time, making the likelihood of choledocholithiasis much less so. In any case , given these recurrent bouts of pancreatitis and her recent right upper quadrant abdominal pain that occurred within the last 1 to 2 weeks, evaluation for choledocholithiasis may be warranted. RECOMMENDATIONS: 1. Would continue the patient on n.p.o. status and advance her diet to clear liquid diet tomorrow. 2. Pain control per primary team. 3. Would continue the patient at 150 mL/h IV fluid given her body habitus/BMI, but consider decreasing to 100 mL/h upon initiation of a clear liquid diet. 4. I would order an MRCP for further evaluation of possible choledocholithiasis. If present, the patient will need an ERCP for stone extraction. 5. Given the significant gallbladder wall thickening and positive Hurd sign with possible gallstones, elective cholecystectomy could be contemplated, but I would refrain from that during this admission given her acute pancreatitis. 6. STRONGLY encourage alcohol and tobacco cessation. We will continue to follow. Dr. Mercado to assume care tomorrow. Please call with any questions. Job ID: [id number] [id number]
[2019-11-13] MEDS: Diazepam 5 MG TAB PO PRN (18:54)
[2019-11-13] MEDS ORDERED: Nicotine 14 MG PATCH TD SCH (22:00)
[2019-11-14] MEDS: Sodium Chloride 0.9% 1,000 ML IV SCH ×3 (01:45→13:41)
[2019-11-14] MEDS: Cefepime 2 GM in Sodium Chloride 0.9% 100 ML IVPB SCH ×3 (02:04→20:21)
[2019-11-14] MEDS: Nicotine 14 MG PATCH TD SCH (05:10)
[2019-11-14] MEDS: Morphine 4 MG/ML VIAL SLOW IVP PRN ×4 (05:10→20:20)
[2019-11-14] MEDS: Acetaminophen 325 MG TAB PO PRN ×2 (05:15→20:21)
[2019-11-14 05:43] LABS: #Basophils 0.1 thou/uL (0.0-0.2); #Eosinphils 0.5 thou/uL (0.0-0.7); #Lymphocytes 2.1 thou/uL (1.20-3.40); #Monocytes 0.5 thou/uL (0.11-0.59); #Neutrophils 3.9 thou/uL (1.40-6.50); %Basophils 0.8 % (0.0-1.0); %Eosinophils 6.8 % (0.0-10.0); %Lymphocytes 30.1 % (21.0-51.0); %Monocytes 7.4 % (0.0-10.0); %Neutrophils 54.9 % (42.0-75.0); Hemoglobin 14.1 g/dL (12.0-16.0); Mean Corpuscular HGB CONC 34.3 g/dL (32.0-36.0); Mean Corpuscular Hemoglobin 34.4 pg (27.0-31.0); Mean Platelet Volume 8.7 fL (7.4-10.4); Platelet Count 192 thou/uL (130-400); RBC Distribution Width 10.8 % (11.5-14.5); Red Blood Cell (RBC) Count 4.09 mill/uL (4.20-5.40); White Blood Cell (WBC) Count 7.1 thou/uL (4.8-10.8)
[2019-11-14 06:49] LABS: ALT (SGPT) 22 U/L (8-55); AST (SGOT) 34 U/L (5-34); Albumin 3.8 g/dL (3.4-4.8); Alkaline Phosphatase 88 U/L (40-110); Anion Gap 12 mmol/L (10-20); BUN (Urea Nitrogen) Less than 4 mg/dL (9.8-20.1); Bilirubin, Total 0.6 mg/dL (0.2-1.2); Calc. Creatinine Clearance 82 mL/min (70-130); Calcium 8.6 mg/dL (7.8-10.44); Carbon Dioxide 26 mmol/L (23-31); Chloride 94 mmol/L (98-107); Estimated GFR-MDRD Greater than 90; Globulin 3.5 g/dL (2.4-3.5); Glucose 119 mg/dL (80-115); Lipase 156 U/L (8-78); Magnesium 1.4 mg/dL (1.6-2.6); Protein, Total 7.3 g/dL (6.0-8.3); Sodium 129 mmol/L (136-145)
[2019-11-14 07:02] LABS: Potassium 2.9 mmol/L (3.5-5.1)
[2019-11-14] MEDS ORDERED: Magnesium Sulfate 4 GM in Sodium Chloride 0.9% 250 ML 250 ML IVPB SCH (07:30)
[2019-11-14] MEDS: Multivitamin W/ Minerals 1 TAB PO SCH (09:26)
[2019-11-14] MEDS: Thiamine 100 MG TAB PO SCH (09:26)
[2019-11-14] MEDS: Potassium Chloride 20 MEQ TAB PO SCH ×2 (09:27→13:40)
[2019-11-14] MEDS: Amlodipine 5 MG TAB PO SCH (09:27)
[2019-11-14] MEDS: Magnesium Oxide 400 MG TAB PO SCH (09:28)
[2019-11-14] MEDS: Folic Acid 1 MG TAB PO SCH (09:28)
[2019-11-14] MEDS: Enoxaparin Sodium 40 MG/0.4 ML SYRINGE SC SCH (09:30)
[2019-11-14] MEDS: Pantoprazole 40 MG VIAL IVP SCH (09:30)
[2019-11-14] MEDS ORDERED: Potassium Chloride 10 MEQ in Premix Bag 1 BAG IVPB SCH (10:45)
[2019-11-14 12:17] LABS: INR-International Normal Ratio 1.1
[2019-11-14 12:18] LABS: PTT 34.2 sec (22.9-36.1)
--- NOTE | 2019-11-14 12:22 | PDOC.HOSPP ---
- Subjective Encounter Date: 11/14/19 (f/u RUQ pain) Encounter Time: 12:20 Subjective: 59F hx of chronic pancreatitis, etoh abuse, HTN, and 1 PPD smoker who presented to the ED on 11/11 for acute RUQ pain. Lipase elevated on admission found to have acute cholecystitis on MRCP. Pt reports that her abdominal pain is mostly in the RUQ and the same as yesterday. Reports she has stopped vomiting, but endorses nausea. Has not had a BM since admission. Denies CP or SOB. Records and medications reviewed. Patient examined at bedside. No overnight events. - Objective Vital Signs & Weight: Vital Signs (12 hours) Temp Pulse Resp BP BP BP Pulse Ox 11/14/19 11:29 98.5 F 94 17 161/79 H 98 11/14/19 09:27 86 136/78 11/14/19 08:00 136/78 93 L 11/14/19 07:34 98.5 F 86 18 136/78 93 L 11/14/19 04:00 100.0 F H 84 20 144/74 H 93 L Weight Admit Weight 100 lb 8 oz Weight 100 lb 8 oz Result Diagrams: 11/14/19 05:23 11/14/19 11:57 Additional Labs: Accuchecks 11/14/19 11/13/19 11/13/19 04:55 20:03 16:09 POC Glucose 119 H 119 H 132 H Hospitalist ROS - Review of Systems Constitutional: denies: fever, chills, sweats, weakness, malaise, other Respiratory: denies: cough, dry, shortness of breath, hemoptysis, SOB with excertion, pleuritic pain, sputum, wheezing, other Cardiovascular: denies: chest pain, palpitations, orthopnea, paroxysmal noc. dyspnea, edema, light headedness, other Gastrointestinal: reports: nausea, abdominal pain. denies: vomiting, diarrhea, constipation, melena, hematochezia, other Genitourinary: denies: dysuria, frequency, incontinence, hematuria, retention, other Musculoskeletal: denies: back pain Skin: denies: rash Neurological: denies: weakness, numbness, change in speech - Medication Medications: Active Medications Generic Name Dose Route Start Last Admin Trade Name Freq PRN Reason Stop Dose Admin Acetaminophen 650 mg 11/13/19 12:20 11/14/19 05:15 Tylenol PO 650 mg Q8H PRN Administration Headache/Fever/Mild Pain (1-3) Amlodipine Besylate 5 mg 11/14/19 09:00 11/14/19 09:27 Norvasc PO 5 mg DAILY SUSANNA Administration Diazepam 5 mg 11/13/19 08:25 11/13/19 18:54 Valium PO 5 mg DAILYPRN PRN Administration Anxiety Enoxaparin Sodium 40 mg 11/13/19 09:00 11/14/19 09:30 Lovenox SC 40 mg 0900 SUSANNA Administration Folic Acid 1 mg 11/13/19 09:00 11/14/19 09:28 Folvite PO 1 mg DAILY SUSANNA Administration Sodium Chloride 1,000 mls @ 150 mls/hr 11/12/19 22:00 11/14/19 02:09 Normal Saline 0.9% IV 1,000 mls .Q6H40M SUSANNA Administration Cefepime HCl 2 gm/ Sodium 100 mls @ 200 mls/hr 11/13/19 10:00 11/14/19 02:04 Chloride IVPB 100 mls 0200,1000,1800 SUSANNA Administration Iron/Minerals/Multivitamins 1 tab 11/13/19 09:00 11/14/19 09:26 Theragran M PO 1 tab DAILY SUSANNA Administration Lorazepam 1 mg 11/13/19 08:26 11/13/19 13:51 Ativan SLOW IVP 1 mg Q4H PRN Administration Anxiety/Agitation Magnesium Oxide 400 mg 11/13/19 09:00 11/14/19 09:28 Magnesium Oxide PO 400 mg DAILY SUSANNA Administration Morphine Sulfate 4 mg 11/12/19 21:58 11/14/19 09:29 Morphine SLOW IVP 4 mg Q4H PRN Administration Severe Pain (7-10) Nicotine 14 mg 11/13/19 05:30 11/14/19 05:10 Nicoderm Patch TD 14 mg Q24HR SUSANNA Administration Pantoprazole Sodium 40 mg 11/13/19 09:00 11/14/19 09:30 Protonix IVP 40 mg DAILY SUSANNA Administration Thiamine HCl 100 mg 11/13/19 09:00 11/14/19 09:26 Thiamine PO 100 mg DAILY SUSANNA Administration - Exam General Appearance: NAD, awake alert Eye: PERRL, anicteric sclera ENT: normocephalic atraumatic, no oropharyngeal lesions, moist mucosa Neck: supple, symmetric, no JVD, no thyromegaly, no lymphadenopathy, no carotid bruit Heart: RRR, no murmur, no gallops, no rubs, normal peripheral pulses Respiratory: CTAB, no wheezes, no rales, no ronchi, normal chest expansion, no tachypnea, normal percussion Gastrointestinal: soft, non-distended, normal bowel sounds, no palpable masses, no hepatomegaly, no splenomegaly, no bruit, tender to palpation (positive Hurd 's sign) Extremities: no cyanosis, no clubbing, no edema Skin: normal turgor, no lesions, no rashes Neurological: cranial nerve grossly intact, no weakness, no focal deficits Musculoskeletal: normal tone, normal strength Psychiatric: A&O x 3 Hosp A/P (1) Acute cholecystitis Code(s): K81.0 - ACUTE CHOLECYSTITIS Status: Acute (2) Acute on chronic pancreatitis Code(s): K85.90 - ACUTE PANCREATITIS WITHOUT NECROSIS OR INFECTION, UNSP; K86.1 - OTHER CHRONIC PANCREATITIS Status: Acute (3) Hyponatremia Code(s): E87.1 - HYPO-OSMOLALITY AND HYPONATREMIA Status: Acute (4) Hypomagnesemia Code(s): E83.42 - HYPOMAGNESEMIA Status: Acute (5) Alcohol abuse Code(s): F10.10 - ALCOHOL ABUSE, UNCOMPLICATED Status: Chronic (6) HTN (hypertension) Code(s): I10 - ESSENTIAL (PRIMARY) HYPERTENSION Status: Chronic (7) Tobacco abuse Code(s): Z72.0 - TOBACCO USE Status: Chronic (8) Hypokalemia Code(s): E87.6 - HYPOKALEMIA Status: Resolved - Plan Acute Cholecystitis: 59F hx of chronic pancreatitis, HTN, etoh abuse, COPD, tobacco use disorder who presented to the ED on 11/12/19 for RUQ pain. Initial evaluation in the ED revealed elevated lipase to 156. RUQUS revealed gall bladder distention and bile duct distension concerning for choledocolithiasis. GI consulted and MRCP ordered. MRCP performed on 11/13/19 did not show choledocolithiasis. Showed evidence of acute cholecystitis and changes consistent with chronic pancreatitis. LFTs do not show any obstructive pattern with AST/ALT 34/22, Alk phos 88. Pt has remained afebrile with no leukocytosis, however given common bile duct dilation and history of chronic pancreatitis, cefepime was started. General Surgery consulted who recommend laprascopic cholecystectomy, however given pt's history of etoh abuse, 1 PPD smoker, and chronic pancreatitis she is a poor surgical candidate and at a higher risk of converting to an open procedure. Pt v/u of risks. Will keep NPO, continue current abx (cefepime dt PCN allergy). PLAN: -Type and cross -Plan for cholecystectomy -Continue IV abx with cefepime -Trend LFTs -Continue pain management with morphine -Zofran for nasuea Acute on Chronic Pancreatitis: Hx of chronic pancreatitis. Continues to abuse etoh. Reports 5 drinks/week. Lipase elevated to 156, however may be chronically elevated. Pain managed with morphine. GI following, MRCP showed chronic changes. Will continue with bowel rest and IVF @ 150cc/hr. -Monitor electrolytes -IVF @ 150cc/hr -Manage pain -NPO, bowel rest ETOH Abuse: -Mg, Folic Acid, Thiamine Repleted -Alcohol withdrawal protocol -No symptoms currently, will continue to monitor Hypokalemia/Hypomagnesmia -Repleted, continue to trend and replete as needed Essential HTN: -Continue home Amlodipine 5 mg DVT prophylaxis w/ lovenox Ambulation encouraged Code Status: FULL CODE Case discussed with attending physician, Dr. Goetz. Addendum: Patient seen and examined. Agree with above. Patient has some chronic conditions that makes her a little higher risk for surgery, but it is necessary. Attempted to get a rapid covid test, but was not able to. Replete potassium. Continue current plan.
[2019-11-14 12:33] LABS: Anion Gap 17 mmol/L (10-20); BUN (Urea Nitrogen) Less than 4 mg/dL (9.8-20.1); Calc. Creatinine Clearance 70 mL/min (70-130); Calcium 9.3 mg/dL (7.8-10.44); Carbon Dioxide 23 mmol/L (23-31); Chloride 92 mmol/L (98-107); Estimated GFR-MDRD Greater than 90; Glucose 112 mg/dL (80-115); Sodium 129 mmol/L (136-145)
[2019-11-14 12:36] LABS: Potassium 2.9 mmol/L (3.5-5.1)
--- NOTE | 2019-11-14 17:14 | CON ---
DATE OF CONSULTATION: 11/14/2019 REQUESTING PHYSICIAN: Riya Tovar PA-C HISTORY OF PRESENT ILLNESS: This is a 59-year-old woman with history of recurrent chronic pancreatitis and alcoholism. The patient presented 2 days ago with recurrent epigastric to left upper quadrant abdominal pain. She recalls that this pain is similar to the pain of her previous pancreatitis, which has been present for over 20 years. At this time, she endorses right upper quadrant abdominal pain, which is associated with multiple episodes of nausea and emesis. The pain has intensified over the last 3 days. She denies any fevers or chills. Pain is rated at 9/10 in maximum intensity, radiating to the back. PAST MEDICAL HISTORY: Significant for: 1. Chronic pancreatitis. 2. COPD. 3. Pulmonary embolism. 4. Essential hypertension. 5. Chronic alcoholism. PAST SURGICAL HISTORY: Pertinent for bilateral tubal ligation about 30 years ago. FAMILY HISTORY: Noncontributory for this patient's age. SOCIAL HISTORY: She is , lives at home with her . She admits to smoking 1-1/2 packs of cigarettes per day and has done so for over 30 years. She admits to drinking 1 to 6 beers a week, although upon further questioning, she may very well consume more alcohol that she admits to. She denies any other illicit drug abuse. PREHOSPITALIZATION MEDICATIONS: Includes: 1. Folic acid 1 mg p.o. daily. 2. Amlodipine 5 mg p.o. daily. 3. Diazepam 5 mg p.o. daily. ALLERGIES: TO PENICILLIN. REVIEW OF SYSTEMS: Ten-point review of systems essentially unremarkable except as stated in past medical history and chief complaint. PHYSICAL EXAMINATION: GENERAL: A 59-year-old cachectic-appearing woman who is otherwise coherent and interactive and is in no acute distress at the time of my evaluation. VITAL SIGNS: Currently include blood pressure 136/78, pulse 86, respiratory rate is 18, temperature is 98.5 degrees Fahrenheit, maximum temperature in last 24 hours is 100 degrees Fahrenheit, and oxygen saturation 93% on room air. HEENT: Normocephalic and atraumatic. Pupils are equally round and reactive to light bilaterally. She has no scleral icterus present. HEART: Regular rate and rhythm. No murmurs or gallops auscultated. LUNGS: Clear to auscultation bilaterally. Breathing, regular and nonlabored. ABDOMEN: Soft and nondistended. She has right upper quadrant tenderness to palpation with a positive Hurd sign. Liver and spleen otherwise nonpalpable below costal margin. NEUROLOGIC: No focal deficits present. LABORATORY FINDINGS: Today include a CBC with 7100 white blood cells, hemoglobin and hematocrit 14.1 and 41.0 respectively, and platelet count is 192,000. Metabolic profile includes sodium 129, potassium 2.9, chloride is 94, bicarb is 26, BUN is less than 4, creatinine 0.52, and glucose 119. Magnesium is 1.4. Total bilirubin 0.6, AST and ALT are normal at 34 and 22 respectively, so is alkaline phosphatase at 88. Serum lipase is 156 today, it was as high as 280 on 11/12/2019. I have reviewed the abdominal ultrasound, obtained on 11/13/2019. This reveals slightly dilated gallbladder with thickened gallbladder wall at 8.3 mm. There is a small solitary gallstone within the gallbladder lumen. No significant pericholecystic fluid is noted here. I reviewed the MRCP, which was obtained on 11/13/2019, which reveals moderate pericholecystic edema as well as no evidence of biliary obstruction or dilatation. There is evidence of chronic pancreatitis, which is consistent with this patient's history. Common bile duct is normal in diameter at 5 mm. IMPRESSION: 1. Acute cholecystitis and cholelithiasis. 2. History of chronic alcoholic pancreatitis. RECOMMENDATIONS: Pain management with bland diet and hopefully an elective laparoscopic cholecystectomy for failure of conservative management. The patient has declined this option as she is unwilling to go home with this type of pain as she lives quite far from the hospital facility. She wishes to proceed with laparoscopic cholecystectomy at this time. I have informed her of the risks and benefits of the proposed surgery to include, but not limited to bleeding, infection, injury to bile duct or surrounding structures. This information given to the patient in the presence of her nurse. She indicates understanding of the information provided. I have answered her questions. The patient has granted consent for the surgical intervention. Thank you again, Ms. Tovar, for allowing me the opportunity to participate in the care of this patient. Job ID: [id number]
[2019-11-14] MEDS: Lactated Ringer's 1,000 ML IV SCH (18:04)
[2019-11-14] MEDS: Lorazepam 2 MG/ML VIAL SLOW IVP PRN (18:05)
--- NOTE | 2019-11-14 20:54 | PRG ---
DATE OF SERVICE: 11/14/2019 SUBJECTIVE: Ms. Lora continues to have abdominal pain today. Her pain was more in the epigastric region radiating more diffusely yesterday. Today the pain is more located to the right abdomen, however, more towards the right lower quadrant. OBJECTIVE: VITAL SIGNS: Temperature 98.5, pulse 94, blood pressure 148/81. GENERAL: She is in no acute distress. LUNGS: Clear to auscultation bilaterally. HEART: Regular rate and rhythm without murmur. ABDOMEN: Tender in the right lower quadrant. Bowel sounds present. EXTREMITIES: No lower extremity edema. LABORATORY DATA: Sodium 129, potassium 2.9, chloride 92, CO2 of 23, BUN 4, creatinine 0.61. Liver tests from morning; bilirubin 0.6, AST 34, ALT 22, alkaline phosphatase 88, albumin 3.8. INR 1.1. White blood cell count 7, IMPRESSION: 1. Acute flare of chronic pancreatitis. Her lipase is greater than 3 times upper limit of normal. The MRI does not show significant acute inflammatory changes of the pancreas now. No evidence of biliary obstruction. 2. Cholecystitis. Ultrasound and CT showed inflammatory changes of the pancreas and her pain is now localized more to the right upper quadrant. Gallstones were also noted by ultrasound. 3. Cystic lesion in the uncinate process of the pancreas measuring 1 cm. Followup pancreas protocol MRI has been recommended by Radiology regarding that. RECOMMENDATIONS: 1. She has been evaluated by General Surgery, and the plan is for cholecystectomy. 2. MRI with pancreas protocol will be performed later in the hospital stay. Job ID: [id number]
[2019-11-15] MEDS: Lactated Ringer's 1,000 ML IV SCH ×5 (00:45→23:58)
[2019-11-15] MEDS: Morphine 4 MG/ML VIAL SLOW IVP PRN ×2 (00:50→05:24)
[2019-11-15] MEDS: Cefepime 2 GM in Sodium Chloride 0.9% 100 ML IVPB SCH ×2 (05:23→15:00)
[2019-11-15] MEDS: Nicotine 14 MG PATCH TD SCH (05:24)
[2019-11-15 06:03] LABS: #Basophils 0.1 thou/uL (0.0-0.2); #Eosinphils 0.6 thou/uL (0.0-0.7); #Lymphocytes 2.9 thou/uL (1.20-3.40); #Monocytes 0.6 thou/uL (0.11-0.59); %Eosinophils 7.8 % (0.0-10.0); %Lymphocytes 40.3 % (21.0-51.0); %Neutrophils 41.9 % (42.0-75.0); Mean Corpuscular HGB CONC 33.1 g/dL (32.0-36.0); Mean Corpuscular Hemoglobin 33.1 pg (27.0-31.0); Mean Corpuscular Volume 99.9 fL (78.0-98.0); Mean Platelet Volume 8.9 fL (7.4-10.4); Platelet Count 201 thou/uL (130-400); RBC Distribution Width 10.7 % (11.5-14.5); Red Blood Cell (RBC) Count 4.24 mill/uL (4.20-5.40); White Blood Cell (WBC) Count 7.1 thou/uL (4.8-10.8)
[2019-11-15 06:22] LABS: Anion Gap 15 mmol/L (10-20); BUN (Urea Nitrogen) Less than 4 mg/dL (9.8-20.1); Calc. Creatinine Clearance 82 mL/min (70-130); Calcium 9.4 mg/dL (7.8-10.44); Carbon Dioxide 24 mmol/L (23-31); Chloride 94 mmol/L (98-107); Estimated GFR-MDRD Greater than 90; Glucose 86 mg/dL (80-115); Potassium 3.8 mmol/L (3.5-5.1); Sodium 129 mmol/L (136-145)
[2019-11-15] MEDS: Enoxaparin Sodium 40 MG/0.4 ML SYRINGE SC SCH (09:00)
[2019-11-15] MEDS ORDERED: Glycopyrrolate 0.2 MG/ML 5 ML SYRINGE ONE (09:21)
[2019-11-15] MEDS ORDERED: Dexamethasone 20 MG/5 ML VIAL ONE (09:21)
[2019-11-15] MEDS ORDERED: Succinylcholine Chloride 20 MG/ML 10 ml SYRINGE FS ONE (09:21)
[2019-11-15] MEDS ORDERED: PROPOFOL 200 MG/20 ML VIAL ONE (09:21)
[2019-11-15] MEDS ORDERED: PHENYLEPHRINE-NS 100 MCG/ML 10 ML SYRINGE ONE (09:21)
[2019-11-15] MEDS ORDERED: Ondansetron PF 4 MG/2 ML Vial ONE (09:21)
[2019-11-15] MEDS ORDERED: Lidocaine 1% PF 5 ML VIAL ONE (09:21)
[2019-11-15] MEDS ORDERED: Lidocaine 1% w/Epinephrine 1:100K 20 ML VIAL ONE (09:24)
[2019-11-15] MEDS ORDERED: Bupivacaine 0.25% HCL 30 ML VIAL ONE (09:24)
[2019-11-15] MEDS ORDERED: Fentanyl 100 MCG/2 ML VIAL ONE (09:24)
[2019-11-15] MEDS ORDERED: Ondansetron HCl/PF 4 MG/2 ML Vial IVP PRN (09:53)
[2019-11-15] MEDS ORDERED: Promethazine HCl 25 MG/ML VIAL SLOW IVP PRN (09:53)
[2019-11-15] MEDS ORDERED: Promethazine HCl 25 MG/ML VIAL IM PRN (09:53)
[2019-11-15] MEDS ORDERED: Midazolam HCl 2 mg/2 ml Vial ONE (09:57)
[2019-11-15] MEDS ORDERED: CEFAZOLIN 1 GM VIAL ONE ×2 (10:14→10:26)
[2019-11-15] MEDS ORDERED: Sodium Chloride 0.9% 0 ML ONE (10:14)
[2019-11-15] MEDS ORDERED: Sodium Chloride 0.9% 100 ML ONE (10:26)
[2019-11-15] MEDS ORDERED: traMADol HCl 50 MG TAB PO PRN ×2 (11:57)
[2019-11-15] MEDS ORDERED: Promethazine HCl 25 MG/ML VIAL ONE (12:14)
[2019-11-15 13:11] LABS: SARS-CoV-2 MS2 Positive; SARS-CoV-2 N Gene Negative; SARS-CoV-2 S Gene Negative; SARS-CoV-2 by NAA Not Detected (NotDetected); SARS-CoV-2 orf1ab Negative
[2019-11-15] MEDS: Ketorolac Tromethamine 30 MG/ML VIAL IVP SCH ×3 (13:35→23:50)
[2019-11-15] MEDS: Magnesium Oxide 400 MG TAB PO SCH (13:37)
[2019-11-15] MEDS: Pantoprazole 40 MG VIAL IVP SCH (13:37)
[2019-11-15] MEDS: Multivitamin W/ Minerals 1 TAB PO SCH (13:37)
[2019-11-15] MEDS: Thiamine 100 MG TAB PO SCH (13:37)
[2019-11-15] MEDS: Amlodipine 5 MG TAB PO SCH (13:37)
[2019-11-15] MEDS: Folic Acid 1 MG TAB PO SCH (13:37)
--- NOTE | 2019-11-15 15:24 | PDOC.HOSPP ---
- Subjective Encounter Date: 11/15/19 Encounter Time: 15:19 Subjective: 59 year-old female with PMHx of chronic pancreatitis, etoh abuse, and 1 PPD smoker who presented on 11/13/19 for abdominal pain found to have acute on chronic pancreatitis and after MRCP acute cholecystitis, now s/p cholecystectomy , POD #0. No overnight events. Pt reports that her abdomen feels sore, but is otherwise well. Denies chest pain, palpitations or SOB. Denies numbness or tingling. Chart and medications reviewed. - Objective Vital Signs & Weight: Vital Signs (12 hours) Temp Pulse Resp BP BP BP Pulse Ox 11/15/19 14:24 110 H 20 144/84 H 97 11/15/19 13:37 96 145/75 H 11/15/19 13:00 97.5 F L 96 20 145/75 H 94 L 11/15/19 07:54 98.5 F 76 17 145/76 H 100 11/15/19 07:35 145/76 H 11/15/19 04:00 98.7 F 75 20 151/84 H 96 Weight Admit Weight 100 lb 8 oz Weight 100 lb 8 oz Result Diagrams: 11/15/19 05:15 11/15/19 05:15 Additional Labs: Accuchecks 11/15/19 11/14/19 11/14/19 04:56 20:03 16:03 POC Glucose 97 106 115 H Hospitalist ROS - Review of Systems Constitutional: denies: fever, chills, sweats, weakness, malaise, other Eyes: reports: conjunctivae inflammation. denies: pain, vision change ENT: denies: throat pain, throat swelling Respiratory: denies: cough, dry, shortness of breath, hemoptysis, SOB with excertion, pleuritic pain, sputum, wheezing, other Cardiovascular: denies: chest pain, palpitations, orthopnea, paroxysmal noc. dyspnea, edema, light headedness, other Gastrointestinal: reports: abdominal pain. denies: nausea, vomiting, diarrhea, constipation, melena, hematochezia, other Genitourinary: denies: dysuria, frequency, incontinence, hematuria, retention, other Musculoskeletal: denies: neck pain, shoulder pain, arm pain, back pain, hand pain, leg pain, foot pain, other Skin: denies: rash Neurological: denies: weakness, numbness - Medication Medications: Active Medications Generic Name Dose Route Start Last Admin Trade Name Freq PRN Reason Stop Dose Admin Acetaminophen 650 mg 11/13/19 12:20 11/14/19 20:21 Tylenol PO 650 mg Q8H PRN Administration Headache/Fever/Mild Pain (1-3) Amlodipine Besylate 5 mg 11/14/19 09:00 11/15/19 13:37 Norvasc PO 5 mg DAILY SUSANNA Administration Diazepam 5 mg 11/13/19 08:25 11/13/19 18:54 Valium PO 5 mg DAILYPRN PRN Administration Anxiety Enoxaparin Sodium 40 mg 11/13/19 09:00 11/15/19 09:00 Lovenox SC Not Given 0900 [facility] Folic Acid 1 mg 11/13/19 09:00 11/15/19 13:37 Folvite PO 1 mg DAILY SUSANNA Administration Cefepime HCl 2 gm/ Sodium 100 mls @ 200 mls/hr 11/14/19 21:00 11/15/19 15:00 Chloride IVPB 100 mls 0500,1300,2100 SUSANNA Administration Lactated Ringer's 1,000 mls @ 150 mls/hr 11/14/19 17:15 11/15/19 13:34 Lactated Ringer's IV 1,000 mls .Q6H40M SUSANNA Administration Iron/Minerals/Multivitamins 1 tab 11/13/19 09:00 11/15/19 13:37 Theragran M PO 1 tab DAILY SUSANNA Administration Ketorolac Tromethamine 15 mg 11/15/19 12:00 11/15/19 13:35 Toradol IVP 11/20/19 12:01 15 mg Q6HR SUSANNA Administration Lorazepam 1 mg 11/13/19 08:26 11/14/19 18:05 Ativan SLOW IVP 1 mg Q4H PRN Administration Anxiety/Agitation Magnesium Oxide 400 mg 11/13/19 09:00 11/15/19 13:37 Magnesium Oxide PO 400 mg DAILY SUSANNA Administration Nicotine 14 mg 11/13/19 05:30 11/15/19 05:24 Nicoderm Patch TD 14 mg Q24HR SUSANNA Administration Pantoprazole Sodium 40 mg 11/13/19 09:00 11/15/19 13:37 Protonix IVP 40 mg DAILY SUSANNA Administration Thiamine HCl 100 mg 11/13/19 09:00 11/15/19 13:37 Thiamine PO 100 mg DAILY SUSANNA Administration - Exam General Appearance: NAD, awake alert Eye: PERRL, anicteric sclera ENT: normocephalic atraumatic, no oropharyngeal lesions, moist mucosa Neck: supple, symmetric, no JVD, no thyromegaly, no lymphadenopathy, no carotid bruit Heart: RRR, no murmur, no gallops, no rubs, normal peripheral pulses Respiratory: CTAB, no wheezes, no rales, no ronchi, normal chest expansion, no tachypnea, normal percussion Gastrointestinal: soft, non-tender, non-distended, normal bowel sounds, no palpable masses, no hepatomegaly, no splenomegaly, no bruit Extremities: no cyanosis, no clubbing, no edema Skin: normal turgor, no lesions, no rashes Neurological: cranial nerve grossly intact, normal sensation to touch, no weakness, no focal deficits, no new deficit Musculoskeletal: normal tone, normal strength, no muscle wasting Psychiatric: normal affect, normal behavior, A&O x 3 Hosp A/P (1) Acute cholecystitis Code(s): K81.0 - ACUTE CHOLECYSTITIS Status: Acute (2) Acute on chronic pancreatitis Code(s): K85.90 - ACUTE PANCREATITIS WITHOUT NECROSIS OR INFECTION, UNSP; K86.1 - OTHER CHRONIC PANCREATITIS Status: Acute (3) Hyponatremia Code(s): E87.1 - HYPO-OSMOLALITY AND HYPONATREMIA Status: Acute (4) Hypomagnesemia Code(s): E83.42 - HYPOMAGNESEMIA Status: Acute (5) Alcohol abuse Code(s): F10.10 - ALCOHOL ABUSE, UNCOMPLICATED Status: Chronic (6) HTN (hypertension) Code(s): I10 - ESSENTIAL (PRIMARY) HYPERTENSION Status: Chronic (7) Tobacco abuse Code(s): Z72.0 - TOBACCO USE Status: Chronic - Plan Acute Cholecystitis: 59F hx of chronic pancreatitis, HTN, etoh abuse, COPD, tobacco use disorder who presented to the ED on 11/12/19 for RUQ pain. Initial evaluation in the ED revealed elevated lipase to 156. RUQUS revealed gall bladder distention and bile duct distension concerning for choledocolithiasis. GI consulted and MRCP ordered. MRCP performed on 11/13/19 did not show choledocolithiasis. Showed evidence of acute cholecystitis and changes consistent with chronic pancreatitis. LFTs do not show any obstructive pattern with AST/ALT 34/22, Alk phos 88. Pt has remained afebrile with no leukocytosis, however given common bile duct dilation and history of chronic pancreatitis, cefepime was started. General Surgery consulted who recommend laprascopic cholecystectomy, however given pt's history of etoh abuse, 1 PPD smoker, and chronic pancreatitis she is a poor surgical candidate and at a higher risk of converting to an open procedure. Fortunately, pt was able to undergo laproscopic cholecystectomy on . Pt tolerated procedure well. General Surgery following. IS encouraged. Will d/c IV cefepime at this time. Pt has no signs or symptoms of cholangitis. Is afebrile, with no leukocytosis. Pt did recieve cayetano-op abx. Will continue to reassess as needed. PLAN: -General Surgery following, reccs appreciated -D/c abx -Trend LFTs -Continue pain management with morphine -Zofran for nasuea Acute on Chronic Pancreatitis: Hx of chronic pancreatitis. Continues to abuse etoh. Reports 5 drinks/week. Lipase elevated to 156, however may be chronically elevated. Pain managed with morphine. GI following, MRCP showed chronic changes. Will continue with bowel rest and IVF @ 150cc/hr. Pt will need f/u MRI pancreas protocol later in hospital stay. -GI following, reccs appreciated -Monitor electrolytes -IVF @ 150cc/hr -Manage pain -NPO, bowel rest ETOH Abuse: -Mg, Folic Acid, Thiamine Repleted -Alcohol withdrawal protocol -No symptoms currently, will continue to monitor Hypokalemia/Hypomagnesmia -Repleted, continue to trend and replete as needed Essential HTN: -Continue home Amlodipine 5 mg DVT prophylaxis w/ lovenox Ambulation encouraged Code Status: FULL CODE Case discussed with attending physician, Dr. Goetz.
--- NOTE | 2019-11-15 17:39 | OP ---
DATE OF PROCEDURE: 11/14/2019 PREOPERATIVE DIAGNOSES: Acute cholecystitis, cholelithiasis. POSTOPERATIVE DIAGNOSES: Acute cholecystitis, cholelithiasis. PROCEDURE PERFORMED: Laparoscopic cholecystectomy. ANESTHESIA: General endotracheal. ESTIMATED BLOOD LOSS: 20 mL. FLUIDS GIVEN: 1000 mL of crystalloids. COUNTS: Sponge and instrument counts were verified as correct x2. COMPLICATIONS: None apparent. INDICATIONS FOR OPERATION: A 59-year-old woman with history of chronic alcohol pancreatitis, presented with right upper quadrant abdominal pain of 3 days duration. Clinical and radiographic examination were consistent with acute cholecystitis, cholelithiasis, for which the patient was brought to the operating room for laparoscopic cholecystectomy. Findings are consistent with dilated gallbladder in the usual anatomic location, completely encased by omental adhesions. DESCRIPTION OF PROCEDURE: Informed consent was obtained from the patient. She was brought to the operating room and placed in supine position. Following general anesthesia, abdomen was sterilely prepped and draped in usual fashion. The skin below the umbilicus was infiltrated with 0.25% Marcaine with epinephrine. Following this, a small curvilinear infraumbilical incision was made using 11 scalpel. Umbilical stalk was grasped with Mayra and elevated. Veress needle was inserted through the incision and placed in the peritoneal cavity, through which the abdomen was insufflated with 3 L of CO2 gas. Intraabdominal pressure was noted at 2 mmHg. Following abdominal insufflation, Veress needle was removed and a 5 mm trocar introduced using a Visiport under laparoscopy. Laparoscopy confirmed proper placement of the port. No injuries to underlying structures. Additional laparoscopy reveals a dilated gallbladder in the usual anatomic location, completely encased by omental adhesions. Under direct laparoscopy, a 12 mm epigastric and two 5 mm right lateral subcostal ports were placed after the overlying skin infiltrated with 0.25% Marcaine with epinephrine. Appropriate incision was made. The patient was placed in a reverse Trendelenburg position, rotated to her left. I introduced a [place] dissector with cautery partially take down omental adhesions to reveal the fundus of the gallbladder. Prestige grasper introduced through the right lateral subcostal port grasping the fundus of the gallbladder, which was elevated cephalad. Omental adhesions were then bluntly dissected off the remainder of the gallbladder. A second Prestige grasper was introduced through the right medial subcostal port grasping the Jovani pouch, which was retracted laterally. I then used a [place] dissector to open the peritoneum of the gallbladder at the infundibulum. The cystic duct and artery were dissected free from surrounding structures. Critical view of the triangle was obtained. The duct was divided between clips, applying 2 clips proximally and 1 clip at the junction of the cystic duct and gallbladder. Cystic artery was also divided in a similar fashion. The gallbladder itself was removed from the liver bed using cautery with good hemostasis. It was delivered of the abdominal cavity using an EndoCatch. Operative site was inspected for good hemostasis. There was minor oozing in the lateral edge of the gallbladder fossa. Immediate hemostasis was achieved using Malaika. Finding, no other pathology. Laparoscopy was terminated. Fascia of the epigastric port was closed using 0 Vicryl suture and Endoclosure device under laparoscopy. The abdomen was desufflated. All ports and instruments removed and accounted for. Skin incision was closed using 4-0 Monocryl suture in subcuticular fashion. Dermabond was applied over incisional closure. The patient tolerated the operation without any apparent complication and was returned to recovery room in satisfactory condition. Job ID: [id number]
--- NOTE | 2019-11-15 18:31 | PRG ---
DATE OF SERVICE: 11/15/2019 SUBJECTIVE: Ms. Lora has had gallbladder removed today. She is having some right upper quadrant pain. She has been medicated. Temperature 97, pulse 96 to 110, blood pressure 145/57, and respirations 18. Abdomen is appropriately tender after laparoscopic cholecystectomy. She denies any history of diarrhea. LABORATORY DATA: White count 7.1, hemoglobin 14, and MCV 99. MRI of the abdomen showed beading of the pancreatic duct consistent with chronic pancreatitis. Operative report is not available yet for review regarding whether or not she had acute cholecystitis. ASSESSMENT: 1. Chronic pancreatitis, likely alcohol abuse. 2. Abdominal pain and gallstone. She has some inflammation in the gallbladder. It is unclear if this is related to chronic liver, pancreatic disease, or acute cholecystitis. She is status post laparoscopic cholecystectomy now. 3. Chronic pancreatitis, ongoing alcohol abuse. RECOMMENDATIONS: 1. Continue multivitamin, thiamine, and folate. Ulcer prophylaxis with PPI, high risk for ulcers with alcohol abuse and chronic pancreatitis. 2. She does not have diarrhea, so probably does not need pancreatic enzyme supplementation at this point in time, although it may help with her chronic pain. 3. Elevated MCV. This is likely related to chronic alcohol use. She has a normal B12. Dr. Ureña will follow up on her tomorrow. She may need intermittent imaging of her pancreas if she was going to follow up in the outpatient setting. She is at high risk for pancreatic malignancy. Job ID: [id number]
[2019-11-16] MEDS: Diazepam 5 MG TAB PO PRN (00:43)
[2019-11-16] MEDS: Ketorolac Tromethamine 30 MG/ML VIAL IVP SCH (05:33)
[2019-11-16] MEDS: Nicotine 14 MG PATCH TD SCH (05:34)
[2019-11-16 05:48] LABS: #Lymphocytes 2.2 thou/uL (1.20-3.40); #Monocytes 0.8 thou/uL (0.11-0.59); #Neutrophils 6.3 thou/uL (1.40-6.50); %Basophils 0.3 % (0.0-1.0); %Eosinophils 0.3 % (0.0-10.0); %Lymphocytes 23.6 % (21.0-51.0); %Monocytes 8.9 % (0.0-10.0); Hemoglobin 13.2 g/dL (12.0-16.0); Mean Corpuscular HGB CONC 34.5 g/dL (32.0-36.0); Mean Corpuscular Hemoglobin 34.2 pg (27.0-31.0); Mean Corpuscular Volume 98.9 fL (78.0-98.0); Mean Platelet Volume 8.6 fL (7.4-10.4); Platelet Count 204 thou/uL (130-400); RBC Distribution Width 10.8 % (11.5-14.5); Red Blood Cell (RBC) Count 3.87 mill/uL (4.20-5.40); White Blood Cell (WBC) Count 9.4 thou/uL (4.8-10.8)
[2019-11-16 06:13] LABS: ALT (SGPT) 19 U/L (8-55); AST (SGOT) 34 U/L (5-34); Albumin 3.4 g/dL (3.4-4.8); Alkaline Phosphatase 75 U/L (40-110); Anion Gap 14 mmol/L (10-20); BUN (Urea Nitrogen) 4 mg/dL (9.8-20.1); Bilirubin, Direct 0.4 mg/dL (0.1-0.3); Bilirubin, Total 0.6 mg/dL (0.2-1.2); Calc. Creatinine Clearance 89 mL/min (70-130); Calcium 8.8 mg/dL (7.8-10.44); Carbon Dioxide 25 mmol/L (23-31); Chloride 97 mmol/L (98-107); Estimated GFR-MDRD Greater than 90; Glucose 129 mg/dL (80-115); Lipase 40 U/L (8-78); Potassium 3.3 mmol/L (3.5-5.1); Protein, Total 6.8 g/dL (6.0-8.3); Sodium 133 mmol/L (136-145)
[2019-11-16] MEDS ORDERED: Potassium Chloride 20 MEQ TAB PO SCH ×2 (06:30→08:00)
[2019-11-16] MEDS: Multivitamin W/ Minerals 1 TAB PO SCH (08:37)
[2019-11-16] MEDS: Thiamine 100 MG TAB PO SCH (08:37)
[2019-11-16] MEDS: Folic Acid 1 MG TAB PO SCH (08:37)
[2019-11-16] MEDS: Magnesium Oxide 400 MG TAB PO SCH (08:37)
[2019-11-16] MEDS: Amlodipine 5 MG TAB PO SCH (08:37)
[2019-11-16] MEDS: Enoxaparin Sodium 40 MG/0.4 ML SYRINGE SC SCH (08:38)
[2019-11-16] MEDS: Pantoprazole 40 MG VIAL IVP SCH (08:38)
[2019-11-16] MEDS: Lactated Ringer's 1,000 ML IV SCH (08:46)
--- NOTE | 2019-11-16 08:52 | PDOC.EVN ---
Event Note - Event Note Event Note: Patient was found in [facility] RESERVATIONS AGENT Aware. Score of 280, primarily for Lorazepam prescriptions. Tramadol prescription given.
[2019-11-16 10:55] VITALS: BP 154/75; TEMP 98
--- NOTE | 2019-11-16 16:21 | PRG ---
DATE OF SERVICE: 11/16/2019 This is a 59-year-old female with a history of recurrent chronic pancreatitis and alcoholism. The patient is postop day #1 status post laparoscopic cholecystectomy for acute cholecystitis and cholelithiasis. The patient's incisions are closed without any drainage or redness. The patient denies any abdominal pain. The patient is tolerating her diet. The patient has been ambulating frequently. The patient voices no complaints or concerns. Surgery will sign off at this time and is ready for discharge from a surgical standpoint. The patient is to follow up in 2 weeks with the Surgery, [facility]. Please call and confirm appointment. The patient should not lift anything heavier than 20 pounds. The patient should not soak in water or bathtub until followup in 2 weeks. Job ID: [id number]
--- NOTE | 2019-11-17 14:25 | DIS ---
DATE OF ADMISSION: 11/12/2019 DATE OF DISCHARGE: 11/16/2019 DISCHARGE DIAGNOSES: 1. Acute cholecystitis. 2. Acute on chronic pancreatitis. 3. Hyponatremia. 4. Hypomagnesemia. 5. Chronic alcohol abuse. 6. Hypertension. 7. Tobacco abuse. HISTORY: The patient is a 59-year-old female with a history of chronic pancreatitis related to alcohol abuse as well as hypertension, COPD related to the tobacco abuse, who presented to the hospital with abdominal pain concerning for recurrent cholecystitis. The patient has slight elevation of her lipase and abdominal ultrasound was concerning for both the possibility of pancreatitis or distention of the gallbladder. She subsequently underwent MRCP. HOSPITAL COURSE: The patient was admitted. She was seen in consultation by GI and Surgery. She subsequently underwent an MRCP that looked more consistent with acute cholecystitis. She then underwent cholecystectomy, which was performed laparoscopically. Postsurgery, the patient had some mild postoperative soreness , but was relieved of her presenting pain and her lab values had improved as well. With that, the patient was felt to be stable for discharge. PHYSICAL EXAMINATION: VITAL SIGNS: Her exam was notable for temperature 98.0, pulse 73, respirations 20, O2 saturation 99% on room air, and blood pressure 154/75. GENERAL: She was awake and alert. HEART: Regular. LUNGS: Clear. ABDOMEN: Benign except for some mild postoperative tenderness. EXTREMITIES: Had no edema. DISPOSITION: The patient is discharged to home. ACTIVITY: Her Activity is as tolerated. DIET: She will remain on a heart-healthy diet and to avoid excess fat. MEDICATIONS: Include; 1. Tylenol p.r.n. 2. Tramadol p.r.n. 50 mg q.6 hours. 3. Folic acid one p.o. daily. 4. Diazepam 5 mg p.r.n. 5. Amlodipine 5 mg p.r.n. She was encouraged by GI to continue OTC, PPI, and thiamine as well. FOLLOWUP: She is to follow up with Dr. Ed Acosta postoperatively and with her PCP, Leyla Grande. She can return to the hospital at anytime she has the need to do so. TIME SPENT: Time spent in discharge activities greater than 30 minutes. Job ID: [id number] [facility]
--- NOTE | 2019-11-22 16:03 | EKG ---
Test Reason : ABDOMINAL PAIN Blood Pressure : / mmHG Vent. Rate : 078 BPM Atrial Rate : 078 BPM P-R Int : 162 ms QRS Dur : 084 ms QT Int : 410 ms P-R-T Axes : 078 047 070 degrees QTc Int : 467 ms Normal sinus rhythm Possible Left atrial enlargement RSR' or QR pattern in V1 suggests right ventricular conduction delay Possible Anteroseptal infarct , age undetermined Abnormal ECG Confirmed by KONG SLATER ([id number]), production editor VALERIA TYSON ([id number]) on 11/22/2019 4:03:13 PM Referred By: Confirmed By:KONG Shelton
== END 2019-11-16 11:05 | disposition home or self-care (01) | DRG 417 ==
LOC: ERS 18:33 → T4-B 21:14
PROVIDERS: ADMIT Internal Medicine; ATTEND Internal Medicine
PROC: 0FT44ZZ Resection of Gallbladder, Percutaneous Endoscopic Approach (ICD-10-PCS; principal; 2019-11-14)
DX: K80.00 Calculus of gallbladder with acute cholecystitis without obstruction (principal); K85.20 Alcohol induced acute pancreatitis without necrosis or infection; E87.1 Hypo-osmolality and hyponatremia; K86.1 Other chronic pancreatitis; Z20.828 Contact with and (suspected) exposure to other viral communicable diseases; F10.10 Alcohol abuse, uncomplicated; I10 Essential (primary) hypertension; F41.9 Anxiety disorder, unspecified; F32.9 Major depressive disorder, single episode, unspecified; E87.8 Other disorders of electrolyte and fluid balance, not elsewhere classified; E83.42 Hypomagnesemia; F17.210 Nicotine dependence, cigarettes, uncomplicated; E87.6 Hypokalemia; J44.9 Chronic obstructive pulmonary disease, unspecified; Z86.711 Personal history of pulmonary embolism; Z98.51 Tubal ligation status; Z88.0 Allergy status to penicillin
CPT/HCPCS: 36415; 36416; 71045; 74181; 76705; 80048; 80053; 80061; 80076; 80306; 80307; 81003; 81015; 82607; 82746; 83690; 83735; 83930; 83935; 84300; 84484; 85025; 85610; 85730; 86850; 86900; 86901; 87635; 88304; 93005; 96365; 96366; 96375; 96376; C9113; J0690; J0692; J1100; J1650; J1885; J2060; J2250; J2270; J2405; J2550; J2704; J3010; J3411; J3475; J3480; J3490; J7050; S0020; U0003

== ENCOUNTER 2019-11-30 17:07 | Inpatient (IN) | payer OTHER, SELFPAY ==
[~2019-11-30 17:07] MED LIST changes: -ISOVUE-370 76%-LOCM 1 ML ONE; +Iopamidol 370 76% 100 ML VIAL ONE; +Iopamidol 370 76% 50 ML VIAL FS ONE
[2019-11-30] MEDS ORDERED: Morphine 4 MG/ML VIAL ONE ×4 (17:23→21:03)
[2019-11-30 17:42] LABS: #Basophils 0.1 thou/uL (0.0-0.2); #Eosinphils 0.1 thou/uL (0.0-0.7); #Monocytes 0.5 thou/uL (0.11-0.59); #Neutrophils 8.9 thou/uL (1.40-6.50); %Basophils 0.5 % (0.0-1.0); %Eosinophils 1.1 % (0.0-10.0); %Monocytes 4.4 % (0.0-10.0); %Neutrophils 76.9 % (42.0-75.0); Hemoglobin 13.1 g/dL (12.0-16.0); Mean Corpuscular HGB CONC 34.2 g/dL (32.0-36.0); Mean Corpuscular Hemoglobin 33.7 pg (27.0-31.0); Mean Corpuscular Volume 98.4 fL (78.0-98.0); Mean Platelet Volume 8.8 fL (7.4-10.4); Platelet Count 435 thou/uL (130-400); RBC Distribution Width 12.1 % (11.5-14.5); White Blood Cell (WBC) Count 11.6 thou/uL (4.8-10.8)
[2019-11-30 18:25] LABS: ALT (SGPT) 19 U/L (8-55); AST (SGOT) 44 U/L (5-34); Albumin 3.7 g/dL (3.4-4.8); Alkaline Phosphatase 113 U/L (40-110); Anion Gap 17 mmol/L (10-20); BUN (Urea Nitrogen) 5 mg/dL (9.8-20.1); Bilirubin, Total 0.3 mg/dL (0.2-1.2); Calc. Creatinine Clearance 0 mL/min (70-130); Calcium 9.3 mg/dL (7.8-10.44); Carbon Dioxide 23 mmol/L (23-31); Chloride 95 mmol/L (98-107); Estimated GFR-MDRD Greater than 90; Globulin 4.3 g/dL (2.4-3.5); Glucose 138 mg/dL (80-115); Lipase 327 U/L (8-78); Potassium 3.6 mmol/L (3.5-5.1); Sodium 131 mmol/L (136-145)
[2019-11-30 18:57] LABS: Bilirubin Negative (Negative); Blood, Urine Negative (Negative); Clarity Clear (Clear); Glucose, Urine (Dipstick) Normal (Negative); Ketone, Urine Negative (Negative); Leukocyte Negative Leu/uL (Negative); Nitrite Negative (Negative); Protein, Urine (Dipstick) 10 mg/dL (Neg-Trace); Specific Gravity, Urine 1.009 (1.002-1.036); Urobilinogen Normal mg/dL (Less than 2)
--- NOTE | 2019-11-30 19:41 | CT ---
EXAM: CT ABDOMEN AND PELVIS HISTORY: Abdominal pain. Laparoscopic cholecystectomy 2 weeks ago. COMPARISON: 07/06/2019 Correlation: Gallbladder ultrasound and abdomen MRI 11/13/2019 Procedure: Multiple contiguous axial images were obtained and a CT of the abdomen and pelvis with IV contrast. C oronal reformats were performed. FINDINGS: Lower Chest: within normal limits. Vessels: Atherosclerosis and nonaneurysmal aorta Heart: Normal heart size Abdomen: Portal vein:Patent Gallbladder: Interval cholecystectomy. There is abnormal hypoattenuation in the gallbladder fossa and along the portal confluence and adjacent to the gastric antrum, second and third portion of the duodenum as well as the head of the pancreas. Edema does appear to involve portions of the head of th e pancreas with interval development of hypodensity which appears to be separate from the common bile duct. This hypodensity measures 1.1 x 0.8 cm. Calcification due to chronic pancreatitis are also noted, as is a beaded appearance of the main pancreatic duct.. The complex fluid noted in the right upper quadrant has an attenuation coefficient of approximately 46-52 Hounsfield units. Liver: No enhancing masses. Pancreas: As above Spleen: within normal limits. Adrenals: within normal limits. Kidneys: Symmetric enhancement. No obstructive uropathy. Peritoneum: There is complex fluid in the right upper quadrant as well as along Morison's pouch. Bowel: Limited evaluation due to the lack of oral contrast administration. No evidence of bowel obstr uction. Ileocecal junction is unremarkable. Normal caliber appendix. Scattered fecal material in a nondistended, nondilated colon. Mesentery and Retroperitoneum: No enlarged mesenteric or retroperitoneal lymph nodes. Abdominal Wall: within normal limits. Pelvis: Reproductive Organs: Reproductive organs are unremarkable. Pelvis: No mass, lymphadenopathy, free air or free fluid. Bladder: within normal limits. Bones: within normal limits. IMPRESSION: 1. Interval cholecystectomy. Abnormal complex fluid/hemorrhage in the postoperative site. The possibi lity of a bile leak cannot be excluded. 2. There appear to be inflammatory changes centered in the region of the duodenum and head of the schulz creas. Correlate for peptic ulcer disease versus acute pancreatitis. There are changes compatible with chronic pancreatitis. Interval development of an approximately 1 cm hypodensity at the head of t he pancreas. This hypodensity appears adjacent to but separate from the common bile duct. Transcribed Date/Time: 11/30/2019 7:48 PM
[2019-11-30] MEDS ORDERED: Ondansetron PF 4 MG/2 ML Vial ONE ×2 (20:55→21:03)
[2019-11-30] MEDS ORDERED: Ondansetron PF 4 MG/2 ML Vial IVP PRN (21:03)
[2019-11-30] MEDS ORDERED: Morphine 2 MG/ML VIAL SLOW IVP PRN (21:06)
[2019-11-30] MEDS: Sodium Chloride 0.9% 1,000 ML IV SCH (21:58)
--- NOTE | 2019-11-30 22:02 | PDOC.EVN ---
Event Note - Event Note Event Note: [id number] HP
[2019-11-30 22:06] VITALS: BMI 15.4
--- NOTE | 2019-11-30 23:30 | PDOC.EVN ---
Event Note - Event Note Event Note: [id number] HP
[2019-11-30] MEDS ORDERED: Promethazine HCl 25 MG/ML VIAL IM PRN (23:37)
[2019-11-30] MEDS ORDERED: Fentanyl 100 MCG/2 ML VIAL SLOW IVP PRN (23:38)
[2019-12-01] MEDS ORDERED: Fentanyl 100 MCG/2 ML VIAL SLOW IVP PRN (00:24)
--- NOTE | 2019-12-01 01:53 | HP ---
CHIEF COMPLAINT: Abdominal pain. HISTORY OF PRESENT ILLNESS: Ms. Lora is a 59-year-old female with past medical history of chronic pancreatitis, chronic obstructive pulmonary disease, recent cholecystectomy two weeks ago, presented to the emergency room with abdominal pain. The patient states that her pain began approximately 2 hours prior to arrival. The pain was associated with nausea and vomiting. She denies diarrhea or constipation. She had stated that she had a laparoscopic cholecystectomy two weeks ago. She states that she has been doing fine until today. Denies fever or chills. Workup in the emergency room including CT abdomen and pelvis showed an abnormal complex fluid/hemorrhage in the postoperative site. Possibility of bile leak cannot be excluded. There was also inflammatory changes centered in the region of the duodenum and head of the pancreas. Correlate for peptic ulcer disease versus acute pancreatitis. There are changes compatible with chronic pancreatitis. 1 cm hypodensity at the head of the pancreas. This hypodensity appears to be adjacent, but separate from the common bile duct. ED physician discussed the case with surgeon classified copy control clerk, who advised to admit the patient and obtain HIDA scan. The patient is being admitted to the hospital for further management. PAST MEDICAL HISTORY: 1. Chronic pancreatitis. 2. Chronic obstructive pulmonary disease. 3. Hypertension. 4. Pulmonary embolism. PAST SURGICAL HISTORY: 1. Cholecystectomy. 2. Tubal ligation. PAST PSYCHIATRIC HISTORY: Anxiety. SOCIAL HISTORY: She is a former drug user. Abuse marijuana, abuse methamphetamine. Currently she uses tobacco, smokes cigarettes daily. She also admits that she still drinks alcohol. FAMILY HISTORY: Reviewed and noncontributory. ALLERGIES: ALLERGIC TO PENICILLIN. HOME MEDICATIONS: Please see home medication reconciliation form for updated medications. REVIEW OF SYSTEMS: Review of 14 systems negative except what is mentioned in history of present illness. PHYSICAL EXAMINATION: GENERAL: The patient is awake, alert, in mild distress. VITAL SIGNS: Blood pressure 142/77, pulse is 82, respiratory rate is 18, temperature is 98.2, oxygen saturations 95% on room air. HEAD AND NECK: Normocephalic, atraumatic. Neck is supple. CHEST: Fair bilateral air entry. HEART: S1, S2. Regular. ABDOMEN: Soft. Mild epigastric tenderness. Bowel sounds present. NEUROLOGIC: Awake, alert, oriented x3. No focal deficits. PSYCH: Unable to assess. EXTREMITIES: No clubbing or cyanosis. LABORATORY DATA: WBC count is 11.6, hemoglobin 13.1, platelets 435. Sodium 131, potassium 3.6, BUN 5, creatinine 0.5. Lipase is 327, alkaline phosphatase 113. ASSESSMENT: 1. Acute abdominal pain. 2. Recent cholecystectomy. 3. Chronic pancreatitis. 4. Chronic obstructive pulmonary disease. 5. Hypertension. 6. History of alcohol abuse. PLAN: 1. Admit. 2. We will keep n.p.o. 3. IV fluids. 4. Pain management. 5. Surgeon consult for evaluation and further management. Surgeon advised to get a HIDA scan. 6. Reconcile home medications. 7. Deep venous thrombosis prophylaxis appropriate. 8. Expected length of stay, one midnight if the patient is stable and cleared by surgeon. Job ID: [id number]
[2019-12-01] MEDS ORDERED: Nicotine 21 MG PATCH TOP SCH (03:00)
[2019-12-01] MEDS ORDERED: Ketorolac Tromethamine 30 MG/ML VIAL IVP PRN (04:03)
[2019-12-01 05:25] LABS: #Eosinphils 0.2 thou/uL (0.0-0.7); #Lymphocytes 1.9 thou/uL (1.20-3.40); #Monocytes 0.4 thou/uL (0.11-0.59); #Neutrophils 5.3 thou/uL (1.40-6.50); %Basophils 0.5 % (0.0-1.0); %Eosinophils 2.3 % (0.0-10.0); %Monocytes 5.3 % (0.0-10.0); %Neutrophils 67.9 % (42.0-75.0); Hemoglobin 12.2 g/dL (12.0-16.0); Mean Corpuscular HGB CONC 34.1 g/dL (32.0-36.0); Mean Corpuscular Hemoglobin 34.6 pg (27.0-31.0); Mean Platelet Volume 8.3 fL (7.4-10.4); Platelet Count 349 thou/uL (130-400); Red Blood Cell (RBC) Count 3.52 mill/uL (4.20-5.40); White Blood Cell (WBC) Count 7.8 thou/uL (4.8-10.8)
[2019-12-01] MEDS: Ketorolac Tromethamine 30 MG/ML VIAL IVP SCH ×3 (05:33→17:54)
[2019-12-01] MEDS: Sodium Chloride 0.9% 1,000 ML IV SCH ×2 (05:38→17:36)
[2019-12-01 05:51] LABS: ALT (SGPT) 135 U/L (8-55); AST (SGOT) 348 U/L (5-34); Albumin 3.2 g/dL (3.4-4.8); Alkaline Phosphatase 143 U/L (40-110); Anion Gap 13 mmol/L (10-20); BUN (Urea Nitrogen) Less than 4 mg/dL (9.8-20.1); Bilirubin, Total 0.9 mg/dL (0.2-1.2); Calc. Creatinine Clearance 72 mL/min (70-130); Calcium 8.5 mg/dL (7.8-10.44); Carbon Dioxide 24 mmol/L (23-31); Chloride 102 mmol/L (98-107); Estimated GFR-MDRD Greater than 90; Globulin 3.3 g/dL (2.4-3.5); Glucose 113 mg/dL (80-115); Potassium 3.6 mmol/L (3.5-5.1); Protein, Total 6.5 g/dL (6.0-8.3); Sodium 135 mmol/L (136-145)
[2019-12-01 08:06] VITALS: TEMP 98.2
[2019-12-01] MEDS ORDERED: Famotidine/PF 20 mg/2ml Vial SLOW IVP SCH (09:00)
[2019-12-01 13:59] LABS: SARS-CoV-2 MS2 Positive; SARS-CoV-2 N Gene Negative; SARS-CoV-2 S Gene Negative; SARS-CoV-2 by NAA Not Detected (NotDetected); SARS-CoV-2 orf1ab Negative
[2019-12-01] MEDS ORDERED: HYDROcodone/Acetaminophen 5/325 mg Tablet PO PRN (15:06)
[2019-12-01] MEDS ORDERED: Morphine 4 MG/ML VIAL SLOW IVP PRN (15:06)
[2019-12-01] MEDS ORDERED: Morphine 2 MG/ML VIAL SLOW IVP PRN (15:07)
--- NOTE | 2019-12-01 15:25 | NM ---
HEPATOBILIARY SCAN: 12/01/19 HISTORY: Abdominal pain. Status post cholecystectomy two weeks ago. FINDINGS: There is good tracer extraction by the liver with prompt excretion into the biliary tract and small b owel loops. No tracer extravasation is seen on earlier two hour delayed images. IMPRESSION: No evidence of bile leak or biliary obstruction. POS: JENAA
[2019-12-01 16:09] VITALS: BP 162/85
--- NOTE | 2019-12-02 15:25 | DIS ---
DATE OF ADMISSION: 11/30/2019 DATE OF DISCHARGE: 12/01/2019 PRIMARY CARE PROVIDER: Leyla Grande, nurse practitioner. DISCHARGE DIAGNOSES: 1. Abdominal pain in patient with recent status post cholecystectomy. 2. Chronic pancreatitis. 3. Chronic obstructive pulmonary disease. 4. Hypertension. 5. History of alcohol abuse. 6. History of hepatitis C. PROCEDURES: None. CONSULTATION: Surgery, Dr. Acosta. LABORATORY DATA: WBC is 7.8, hemoglobin 12.2, hematocrit 35.7, and platelets 349. Chemistry; sodium 137, potassium 3.6, chloride is 102, carbon dioxide 24, BUN 4, creatinine 0.51. Total bilirubin 0.9, AST 348, ALT 135, alkaline phosphatase 143, albumin 3.2. IMAGING STUDY: HIDA scan, no evidence of biliary leak or biliary obstruction. CT abdomen and pelvis, interval cholecystectomy, abnormal complex fluid/hemorrhage in the postoperative site. The possibilities of biliary leak cannot be excluded. There appear to be inflammatory changes centered in the regions of the duodenum and the head of the pancreas, correlated with peptic ulcer disease versus acute pancreatitis. There are changes compatible with chronic pancreatitis, interval development of approximately 1 cm hypodensity at the head of the pancreas. This hypodensity appears adjacent to but separate for the common bile duct. HISTORY OF PRESENT ILLNESS AND BRIEF HOSPITAL COURSE: This is a pleasant 59-year-old female, who has significant past medical history of chronic pancreatitis, COPD, status post cholecystectomy about two weeks ago. She presented to the ED with complaint of abdominal pain. Symptom appeared to be started approximately 2 hours prior to arrival. Symptoms associated with nausea and vomiting. Initial workup in the ED included CT abdomen and pelvis. The results are noted above. The patient was subsequently admitted to hospitalist service to medical floor for pain control and further workup. Surgery was consulted. Surgery had recommended HIDA scan to biliary leak given her elevated LFT. HIDA scan came back negative. No further surgical intervention was recommended. Her diet was advanced. The patient appeared to be tolerating well. She requests to be discharged home. Additionally, the patient has a known history of hepatitis C, but never get treated. Her LFT slightly elevated. I have discussed with the patient, would recommend her to follow up with her PCP and ultimately obtain a referral to see GI for treatments of her hepatitis C. the patient verbalized understanding and agreeable with the plan. At this time, since she is tolerating her diet, no further workup is recommended from Surgery. The patient will be discharged home with family. ACTIVITY: As tolerated. DIET: As tolerated, regular. DISPOSITION: The patient is stable to discharge home with family. FOLLOWUP CARE: The patient needs to follow up with her PCP in 1 to 2 weeks. She needs to have repeated LFT as well as hepatitis panel, and refer to GI for treatment of hepatitis C. PHYSICAL EXAMINATION: VITAL SIGNS: Temperature is 98.2, heart rate 78, respiratory rate 14, she is saturating 97% on room air, and blood pressure 162/85. GENERAL APPEARANCE: The patient appears to be alert and oriented x3, not in acute distress. HEENT: Normocephalic, atraumatic. Mucous membranes moist. NECK: Supple. No lymphadenopathy. No JVD. CARDIOVASCULAR: Regular rate and rhythm. S1 and S2 noted. No murmur. PULMONOLOGY: Clear to auscultation bilaterally. ABDOMEN: Soft, slightly tender to touch her right upper quadrant, where her surgical site was. Positive bowel sounds. No guarding or rebound. EXTREMITIES: No edema or swelling. NEUROLOGY: Cranial nerves II through XII grossly intact. No focal weakness. PSYCHIATRIC: The patient is alert and oriented x3 with normal affect. DISCHARGE MEDICATIONS: The patient to continue home medication. I have provided the patient a prescription for: 1. Tramadol 50 mg tablet, take one tablet q.6 p.r.n. for pain. 2. Norvasc 5 mg p.o. daily. 3. Valium 1 mg p.o. daily p.r.n. for anxiety. 4. Folic acid 1 mg p.o. daily. 5. Tylenol 650 mg q.8 p.r.n. DISCHARGE INSTRUCTIONS: 1. The patient advised to take her medication as prescribed. 2. The patient needs to follow up with her PCP for followup and referral to GI for treatment of hepatitis C. 3. The patient was advised to return to the ED if her symptoms recurs or worsen. 4. The patient was counseled extensively with regard to avoid alcohol use. Thank you for allowing us to participate in this patient's care. TIME SPENT: Discharge time spent 35 minutes. Job ID: [id number]
--- NOTE | 2019-12-07 04:42 | PQF ---
CLINICAL DOCUMENTATION CLARIFICATION FORM: Dear : Mike Bray MD Date / Time: 12/07/2019 Please exercise your independent, professional judgment in responding to the clarification form. Clinical indicators are provided on the bottom of this form for your review Please check appropriate box(es): [ x] Postoperative abdominal pain [ ] Abdominal pain due to unspecified etiology [ ] Other diagnosis (Please specify if any) [ ] Unable to determine Physician Signature: Date/Time: For continuity of documentation, please document condition throughout progress notes and discharge summary. Thank You. To be completed by CDI/Coding staff for physician review: w Present w Clinical Indicators - Signs / Symptoms / Labs w Results and Location in Medical Record w [x ] w Possible bile leak, post operative pain w ED provider report on 11/29 w [ x ] w Abnormal complex fluid/hemorrhage in the postoperative sit. w Abodmen CT on 11/29 w [ x ] w Inflammatory changes centered in the region of the duodenum and head of the pancreas. w Abodmen CT on 11/29 w [ x] w Abdminal pain in patient with recent status post cholecystectomy w Discharge summary on 11/30 w Present w Risk Factors w Results and Location in Medical Record w [ x ] w S/p cholecystectomy two week ago w Discharge summary on 11/30 w [ x ] w Abdominal pain w Discharge summary on 11/30 w [ ] w w w [ ] w w w Present w Treatments w Results and Location in Medical Record w [ x] w Ct abdomem w CT on 11/29 w [x ] w Morphine 4 mg w Medication on 11/29 w [ ] w w w [ ] w w CDS/Decal Cutter Signature: RK Phone #: Date/Time: 12/07/2019 This is a permanent part of the Medical Record [facility]
== END 2019-12-01 18:19 | disposition home or self-care (01) | DRG 948 ==
LOC: ERS 17:07 → SURG A 20:45
PROVIDERS: ADMIT Internal Medicine; ATTEND Internal Medicine
DX: G89.18 Other acute postprocedural pain (principal); K86.1 Other chronic pancreatitis; J44.9 Chronic obstructive pulmonary disease, unspecified; Z20.828 Contact with and (suspected) exposure to other viral communicable diseases; F41.9 Anxiety disorder, unspecified; F17.210 Nicotine dependence, cigarettes, uncomplicated; F15.11 Other stimulant abuse, in remission; B19.20 Unspecified viral hepatitis C without hepatic coma; I10 Essential (primary) hypertension; Z86.711 Personal history of pulmonary embolism; Z90.49 Acquired absence of other specified parts of digestive tract; Z98.51 Tubal ligation status; Z88.0 Allergy status to penicillin; Z79.82 Long term (current) use of aspirin; Z79.899 Other long term (current) drug therapy
CPT/HCPCS: 36415; 74177; 78226; 80053; 81003; 83690; 85025; 87635; 94760; 96361; 96374; 96375; 96376; A9537; J1885; J2270; J2405; J2550; J3010; Q9967; S0028; U0003

== ENCOUNTER 2020-03-22 12:59 | Emergency (ER) | payer OTHER ==
--- NOTE | 2020-03-22 13:34 | RAD ---
XR Wrist 3 Lt View STANDARD: 03/22/2020 1:07 PM CLINICAL INDICATION: Fall with left wrist pain COMPARISON: None. FINDINGS: Bones: There is diffuse osteopenia. There is a comminuted intra-articular, dorsally impacted distal radius fracture. There is a mildly displaced comminuted ulnar styloid process fracture. There is a mildly displaced proximal triquetral avulsion fracture and lateral and distal hamate fracture. Joints: There is moderate first CMC and STT osteoarthrosis.. Soft Tissue: There is soft tissue swelling surrounding the left wrist.. IMPRESSION: 1. Comminuted, intra-articular, dorsally impacted distal radius fracture. 2. Comminuted, mildly impacted ulnar styloid process fracture. 3. Small avulsion fracture involving the proximal triquetrum. 4. Mildly displaced lateral and distal hamate fracture..
--- NOTE | 2020-03-22 15:11 | CT ---
CT Brain WO Con: 03/22/2020 2:40 PM CLINICAL HISTORY: Slipped and fell with head injury. IMAGING TECHNIQUE: Multiple CT images were obtained of the brain without IV contrast. COMPARISON: Prior exam dated July 22, 2018 FINDINGS: BRAIN: Evidence of acute infarct: None. Evidence of chronic ischemic change:Mild Evidence of intracranial hemorrhage: None. Evidence of brain volume loss:Mild generalized cerebral and cerebellar atrophy is stable Evidence of midline shift: Third ventricle and septum pellucidum are midline. Ventricles: Normal. No hydrocephalus. SKULL: Intact. VISUALIZED PARANASAL SINUSES: Clear. MASTOID AIR CELLS: Clear. EXTRACRANIAL SOFT TISSUES: Normal. IMPRESSION: No acute intracranial abnormality.
--- NOTE | 2020-03-22 15:14 | CT ---
CT Cervical Spine WO Con Indication: Fall with neck injury and neck pain COMPARISON: July 22, 2018 FINDINGS: Spinal alignment: There is some reversal the normal cervical lordosis which is stable. Craniocervical junction: Within normal limits. Fracture: None. Vertebral body heights: Maintained. Prevertebral soft tissues:Normal appearing. Cervical spine degenerative change: Stable moderate to severe cervical spondylosis. Lung apices: Clear. IMPRESSION: No acute osseous abnormality.
[2020-03-22] MEDS ORDERED: Ibuprofen 200 MG TAB ONE (15:45)
[2020-03-22] MEDS ORDERED: Acetaminophen 500 MG TAB ONE (15:45)
== END 2020-03-22 16:29 | disposition home or self-care (01) ==
LOC: ERS 12:59
DX: S52.572A Other intraarticular fracture of lower end of left radius, initial encounter for closed fracture (principal); S52.612A Displaced fracture of left ulna styloid process, initial encounter for closed fracture; S62.112A Displaced fracture of triquetrum [cuneiform] bone, left wrist, initial encounter for closed fracture; S62.142A Displaced fracture of body of hamate [unciform] bone, left wrist, initial encounter for closed fracture; I10 Essential (primary) hypertension; J44.9 Chronic obstructive pulmonary disease, unspecified; R29.700 NIHSS score 0; Y90.8 Blood alcohol level of 240 mg/100 ml or more; F17.210 Nicotine dependence, cigarettes, uncomplicated; W18.2XXA Fall in (into) shower or empty bathtub, initial encounter; Y92.231 Patient bathroom in hospital as the place of occurrence of the external cause
CPT/HCPCS: 29125; 36415; 70450; 72125; 80307

== ENCOUNTER 2020-05-20 20:12 | Inpatient (IN) | payer SELFPAY ==
[~2020-05-20 20:12] MED LIST changes: -Iopamidol 370 76% 100 ML VIAL ONE; -Iopamidol 370 76% 50 ML VIAL FS ONE; +Iopamidol-370 76% 500 ML 1 ML ONE
[2020-05-20 20:39] LABS: #Eosinphils 0.1 thou/uL (0.0-0.7); #Lymphocytes 2.2 thou/uL (1.20-3.40); #Monocytes 0.5 thou/uL (0.11-0.59); #Neutrophils 4.6 thou/uL (1.40-6.50); %Basophils 0.6 % (0.0-1.0); %Lymphocytes 29.9 % (21.0-51.0); %Monocytes 6.3 % (0.0-10.0); %Neutrophils 61.3 % (42.0-75.0); Hemoglobin 12.8 g/dL (12.0-16.0); Mean Corpuscular HGB CONC 35.9 g/dL (32.0-36.0); Mean Corpuscular Hemoglobin 36.1 pg (27.0-31.0); Mean Platelet Volume 8.7 fL (7.4-10.4); Platelet Count 152 thou/uL (130-400); RBC Distribution Width 11.5 % (11.5-14.5); Red Blood Cell (RBC) Count 3.56 mill/uL (4.20-5.40); White Blood Cell (WBC) Count 7.5 thou/uL (4.8-10.8)
[2020-05-20 21:00] LABS: ALT (SGPT) 72 U/L (8-55); AST (SGOT) 104 U/L (5-34); Albumin 3.5 g/dL (3.4-4.8); Alkaline Phosphatase 109 U/L (40-110); Anion Gap 17 mmol/L (10-20); BUN (Urea Nitrogen) Less than 4 mg/dL (9.8-20.1); Bilirubin, Total 0.6 mg/dL (0.2-1.2); Calc. Creatinine Clearance 0 mL/min (70-130); Calcium 8.4 mg/dL (7.8-10.44); Carbon Dioxide 21 mmol/L (23-31); Chloride 90 mmol/L (98-107); Globulin 3.9 g/dL (2.4-3.5); Glucose 142 mg/dL (80-115); Lipase 260 U/L (8-78); Protein, Total 7.4 g/dL (5.8-8.1); Sodium 125 mmol/L (136-145)
[2020-05-20 21:05] LABS: Potassium 2.8 mmol/L (3.5-5.1)
[2020-05-20 21:18] LABS: Bilirubin Negative (Negative); Blood, Urine Negative (Negative); Clarity Clear (Clear); Glucose, Urine (Dipstick) Normal (Negative); Ketone, Urine Negative (Negative); Leukocyte Negative Leu/uL (Negative); Nitrite Negative (Negative); Protein, Urine (Dipstick) Negative (Neg-Trace); Specific Gravity, Urine 1.003 (1.002-1.036); Urobilinogen Normal mg/dL (Less than 2)
[2020-05-20] MEDS ORDERED: Multivitamins, Adult 10 ML, Thiamine HCl 100 MG, Folic Acid 1 MG in Dextrose 5 %-0.45 %... IV SCH ×2 (21:30→23:00)
--- NOTE | 2020-05-20 22:09 | CT ---
CT OF THE ABDOMEN AND PELVIS WITH IV CONTRAST INDICATION: 60-year-old female with epigastric abdominal pain and nausea vomiting COMPARISON: CT the abdomen and pelvis with contrast dated November 30, 2019. FINDINGS: ABDOMEN: Lung bases: Clear Liver: Mild fatty liver Gallbladder: Surgically absent Pancreas: The pancreas demonstrates main pancreatic ductal dilatation with numerous scattered pancrea tic parenchymal calcification suspicious for sequela of chronic pancreatitis. There is been interval development of a peripherally enhancing cystic collection with a central area of calcificati on measuring 2.3 cm on image 27 series 2 in the region of the pancreatic head suspicious for a pancreatic pseudocyst formation. Adrenal glands: Normal. Spleen: Normal. Kidneys and ureters: There are small renal cortical calcification involving the left mid kidney. No h ydronephrosis is evident. Right kidney is normal-appearing. Vasculature: There are severe vascular calcifications seen involving the visualized vasculature. Lymph nodes:No lymphadenopathy. Free fluid in abdomen:No free fluid is evident. PELVIS: Small and large bowel: There are a few scattered diverticula involving the colon without evidence of active diverticulitis. The small bowel appears of normal caliber. Visualized aspects of the stomach are largely decompressed. Appendix:Not definitely seen Bladder: Moderately distended Rectal and perirectal soft tissues:Normal. Reproductive structures: Normal. Free fluid in pelvis: No free fluid is evident. Lymphadenopathy pelvis: No lymphadenopathy is evident. Osseous structures: There is diffuse osteopenia. No acute osseous abnormality is demonstrated. There is scattered degenerative and osteoarthritic changes. Soft tissues:Normal. IMPRESSION: 1. Findings most suspicious for changes of chronic pancreatitis. There has been an interval developme nt of a peripherally enhancing cystic collection with a central area of calcification involving the pancreatic head suspicious for pseudocyst formation. Follow-up CT the abdomen with and without contra st and 6-8 weeks is recommended to document stability versus resolution. 2. Stable left mid renal cortical calcification. 3. Colonic diverticulosis without evidence of active diverticulitis. 4. Mild fatty liver. 5. Cholecystectomy.
[2020-05-20] MEDS ORDERED: Potassium Chloride 20 MEQ TAB ONE (22:16)
--- NOTE | 2020-05-21 01:38 | PDOC.HHP ---
Hospitalist HPI Abdominal pain History of Present Illness: CC: Fifi Saravia The patient is a 60-year-old female with a past medical history of chronic pancreatitis, unhealthy alcohol intake, COPD, HTN, pulmonary embolism and anx iety that presents emergency department via EMS for the above complaint. Patient reports the acute onset of abdominal pain at around 9 a.m., located epigastric region, described as dull and aching, exacerbated with drinking alcohol, relieved by nothing. She reports associated nausea vomiting and d iarrhea. She recently fell and broke her arm. She takes ibuprofen daily for pain control. She thought her pain may have been related to peptic ulcer disease secondary to her recent, frequent NSAID usage. Denies hematochezia/melena. Denies any hematemesis or hemoptysis. She denies any chest pain, heart palpitations, lightheadedness or swelling to lower extremities. Denies any shortness of breath. Endorses chronic cough, nonproductive. She denies any dysuria or hematuria. She denies any fever or chills. She drinks 6 beers per day. Last drink was yesterday. She is a former drug abuser. 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 She denies any recent illicit drug use. She called EMS. Upon arrival, the patient was found to have vital signs within normal limits. She is brought to the hospital for further evaluation. ED Course: VITAL SIGNS WedMay 20, 2020 20:15 JHOANA Patel Lee BP: 144/94, Pulse: 75, Resp: 16, Pain: 9, O2 sat: 95q on (Room Air), Time: 05/20/2020 20:15. VITAL SIGNS WedMay 20, 2020 21:00 JHOANA Patel Lee BP: 130/84, Pulse: 88, Resp: 15, Pain: 6, O2 sat: 96 on (Room Air), Time: 05/20/2020 21:00. VITAL SIGNS WedMay 20, 2020 22:00 JHOANA Patel Lee BP: 132/85, Pulse: 85, Resp: 16, O2 sat: 97 on (Room Air), Time: 05/20/2020 22:00. VITAL SIGNS WedMay 20, 2020 23:00 JHOANA Patel Lee BP: 141/80, Pulse: 68, Resp: 16, Pain: 7, O2 sat: 98 on (Room Air), Time: 05/20/2020 23:00. EKG normal sinus rhythm CT abdomen pelvis showed a pseudocyst formation with peripancreatic stranding. Day BC 7.5, EtOH 27, UA unremarkable Medication administration: BANANA BAG 1 L IV Fluid Infusion Given 23:21 05/20/2020 K-Dur 40 mEq Oral Given 22:26 05/20/2020 Normal Saline 1 L IV Fluid Infusion Given 20:53 05/20/2020 Allergies/Adverse Reactions: Allergy/AdvReac Type Severity Reaction Status Date / Time Penicillins Allergy Hives Verified 11/30/19 22:01 Home Medications: Medication Instructions Recorded Confirmed Type Amlodipine [Norvasc] 5 mg PO DAILY 11/12/19 11/30/19 History Diazepam [Valium] 1 tab PO DAILY PRN 11/12/19 11/30/19 History Folic Acid [Folvite] 1 mg PO DAILY 11/12/19 11/30/19 History Acetaminophen [Tylenol Regular 650 mg PO Q8H PRN tab 11/16/19 11/30/19 Rx Strength] traMADol HCl [Tramadol HCl] 50 mg PO Q6H PRN #30 tablet 12/01/19 Rx Past History: PMHx: Chronic pancreatitis, COPD, HTN, PE, anxiety, unhealthy alcohol usage PSHx: Cholecystectomy, tubal ligation FHx: Noncontributory to this case Social: Lives with family. Former illicit drug user. Abuse marijuana and methamphetamines greater than 30 years ago. Smokes 2 packs/day x 30 years. Drinks a sixpack of beer daily. Hospitalist HPI ROS All other systems reviewed; all pertinent +/- noted in HPI/Subj Hospitalist Exam General Appearance: NAD, awake alert. negative: ill appearing General - other findings: Cachectic, appears older than stated age Eye: PERRL, anicteric sclera ENT: normocephalic atraumatic, moist mucosa Neck: supple, no lymphadenopathy, no carotid bruit Heart: RRR, no murmur, no gallops, no rubs, irregular Respiratory: CTAB, no rales, no ronchi, no tachypnea Respiratory - other findings: Diminished lower lobes Gastrointestinal: soft, non-distended, normal bowel sounds, no guarding, no rigidity, tender to palpation (Mildly tender epigastric region) Gastrointestinal - other findings: No rebound tenderness, negative Rovsing sign, negative Hurd sign Extremities: no cyanosis, no edema Skin: no rashes Musculoskeletal: diffuse muscle atrophy Psychiatric: normal affect, A&O x 3 Hospitalist Results Result Diagrams: 05/21/20 02:04 05/21/20 02:04 Lab results: Laboratory Last Values WBC 7.5 thou/uL (4.8-10.8) 05/20/20 20: RBC 3.56 mill/uL (4.20-5.40) L 05/20/20 20:25 Hgb 12.8 g/dL (12.0-16.0) 05/20/20 20: Hct 35.7 % (36.0-47.0) L 05/20/20 20: MCV 101.0 fL (78.0-98.0) H 05/20/20 20: MCH 36.1 pg (27.0-31.0) H 05/20/20 20: MCHC 35.9 g/dL (32.0-36.0) 05/20/20 20: RDW 11.5 % (11.5-14.5) 05/20/20 20: Plt Count 152 thou/uL (130-400) 05/20/20 20: MPV 8.7 fL (7.4-10.4) 05/20/20 20: Neutrophils % 61.3 % (42.0-75.0) 05/20/20 20: Lymphocytes % 29.9 % (21.0-51.0) 05/20/20 20: Monocytes % 6.3 % (0.0-10.0) 05/20/20 20: Eosinophils % 2.0 % (0.0-10.0) 05/20/20: Basophils % 0.6 % (0.0-1.0) 05/20/20 20: Neutrophils # 4.6 thou/uL (1.40-6.50) 05/20/20 20: Lymphocytes # 2.2 thou/uL (1.20-3.40) 05/20/20 20: Monocytes # 0.5 thou/uL (0.11-0.59) 05/20/20 20:25 Eosinophils # 0.1 thou/uL (0.0-0.7) 05/20/20 20:25 Basophils # 0.0 thou/uL (0.0-0.2) 05/20/20 20:25 Sodium 125 mmol/L (136-145) L 05/20/20 20:25 Potassium 2.8 mmol/L (3.5-5.1) L* 05/20/20 20:25 Chloride 90 mmol/L (98-107) L 05/20/20 20:25 Carbon Dioxide 21 mmol/L (23-31) L 05/20/20 20:25 Anion Gap 17 mmol/L (10-20) 05/20/20 20:25 BUN Less than 4 mg/dL (9.8-20.1) L 05/20/20 20:25 Creatinine 0.52 mg/dL (0.6-1.1) L 05/20/20 20:25 Estimated GFR (MDRD) Greater than 90 05/20/20 20:25 Glucose 142 mg/dL (80-115) H 05/20/20 20:25 Calcium 8.4 mg/dL (7.8-10.44) 05/20/20 20:25 Total Bilirubin 0.6 mg/dL (0.2-1.2) 05/20/20 20:25 AST 104 U/L (5-34) H 05/20/20 20:25 ALT 72 U/L (8-55) H 05/20/20 20:25 Alkaline Phosphatase 109 U/L (40-110) 05/20/20 20:25 Serum Total Protein 7.4 g/dL (5.8-8.1) 05/20/20 20:25 Albumin 3.5 g/dL (3.4-4.8) 05/20/20 20:25 Globulin 3.9 g/dL (2.4-3.5) H 05/20/20 20:25 Albumin/Globulin Ratio 0.9 g/dL (1.2-2.2) L 05/20/20 20:25 Lipase 260 U/L (8-78) H 05/20/20 20:25 Urine Color Colorless (Yellow) 05/20/20 21:01 Urine Clarity Clear (Clear) 05/20/20 21:01 Urine pH 7.0 (5.0-9.0) 05/20/20 21:01 Ur Specific Reading 1.003 (1.002-1.036) 05/20/20 21:01 Urine Protein Negative mg/dL (Neg-Trace) 05/20/20 21:01 Urine Glucose (UA) Normal mg/dL (Negative) 05/20/20 21: Urine Ketones Negative mg/dL (Negative) 05/20/20 21: Urine Blood Negative (Negative) 05/20/20 21: Urine Nitrite Negative (Negative) 05/20/20 21: Urine Bilirubin Negative (Negative) 05/20/20 21: Urine Urobilinogen Normal mg/dL (Less than 2) 05/20/20 21: Ur Leukocyte Esterase Negative Gema/uL (Negative) 05/20/20 21: Plasma Alcohol 27 mg/dL (Less than 10) H 05/20/20 20:25 EKG Status: image reviewed by me Additional Comments: 12 lead EKG interpreted by Emergency Department Physician at time of study, Rate of 73. Normal sinus rhythm. Borderline left atrial enlargement. Normal axis. Normal intervals. Borderline left ventricular hypertrophy. Normal T waves normal ST segments CT scan - abdomen Status: report reviewed by me Additional Comments: IMPRESSION: 1. Findings most suspicious for changes of chronic pancreatitis. There has been an interval development of a peripherally enhancing cystic collection with a central area of calcification involving the pancreatic head suspicious for pseudocyst formation. Follow-up CT the abdomen with and without contrast and 6-8 weeks is recommended to document stability versus resolution. 2. Stable left mid renal cortical calcification. 3. Colonic diverticulosis without evidence of active diverticulitis. 4. Mild fatty liver. Hospitalist H&P A/P (1) Acute on chronic pancreatitis Code(s): K85.90 - ACUTE PANCREATITIS WITHOUT NECROSIS OR INFECTION, UNSP; K86.1 - OTHER CHRONIC PANCREATITIS Status: Acute (2) Hypokalemia Code(s): E87.6 - HYPOKALEMIA Status: Acute (3) Hyponatremia Code(s): E87.1 - HYPO-OSMOLALITY AND HYPONATREMIA Status: Acute (4) Unhealthy alcohol drinking behavior Code(s): Z78.9 - OTHER SPECIFIED HEALTH STATUS Status: Chronic (5) COPD (chronic obstructive pulmonary disease) Status: Chronic (6) HTN (hypertension) Code(s): I10 - ESSENTIAL (PRIMARY) HYPERTENSION Status: Chronic (7) Anxiety Code(s): F41.9 - ANXIETY DISORDER, UNSPECIFIED Status: Chronic Plan: Patient with chronic pancreatitis, unhealthy alcohol drinking behavior, former illicit drug abuse, COPD, HTN and anxiety presents for epigastric pain with associated nausea vomiting diarrhea. Imaging showed pseudocyst formation with peripancreatic stranding. No leukocytosis. EtOH 27. UA unremarkable. #Acute on chronic pancreatitis Presented lipase 216. AST 104 and ALT 102, NL bilirubin. Likely related unhealthy alcohol intake. Will obtain right upper quadrant ultrasound. Check lipid profile. Give IV fluids, analgesia, antiemetics. CT positive pseudocyst, No necrosis or abscess. recommendation follow-up 6 to 8 weeks repeat imaging. #Hypokalemia Presented potassium 2.8. EKG normal sinus rhythm. Given 40 mEq oral potassium in ED. Recheck level in a.m. Check magnesium level. #Hyponatremia Mild. Presented with sodium level 125. Check osmolality studies. Given IV fluids in ED. Recheck level in a.m. #Unhealthy alcohol drinking behavior Chronic. Drinks 6 beers per day. ASE protocol. Received banana bag in ED. #COPD Chronic, stable. Has rescue albuterol inhaler at home. #HTN Presented normotensive. Restart home dose amlodipine. #Anxiety Denies SI/HI. Takes Valium as needed. We will add Valium if needed. SCDs for DVT prophylaxis. Protonix for GI prophylaxis. CODE STATUS full code. Discussed the case with attending physician, Dr. Franklin, who agrees with plan of care
[2020-05-21] MEDS ORDERED: Ondansetron ODT 4 MG TAB PO PRN (01:48)
[2020-05-21] MEDS ORDERED: Diazepam 5 MG TAB PO PRN (01:49)
[2020-05-21] MEDS ORDERED: Lorazepam 2 MG/ML VIAL SLOW IVP PRN (01:50)
[2020-05-21] MEDS ORDERED: Acetaminophen 325 MG TAB PO PRN (01:56)
[2020-05-21] MEDS ORDERED: Morphine 2 MG/ML VIAL ONE ×2 (02:08→04:40)
[2020-05-21] MEDS ORDERED: Ondansetron PF 4 MG/2 ML Vial ONE (02:08)
[2020-05-21] MEDS: Morphine 2 MG/ML VIAL SLOW IVP PRN ×7 (02:10→23:49)
[2020-05-21] MEDS: Sodium Chloride 0.9% 1,000 ML IV SCH ×4 (02:10→22:01)
[2020-05-21 02:11] LABS: #Basophils 0.1 thou/uL (0.0-0.2); #Eosinphils 0.2 thou/uL (0.0-0.7); #Lymphocytes 2.6 thou/uL (1.20-3.40); #Monocytes 0.5 thou/uL (0.11-0.59); #Neutrophils 3.8 thou/uL (1.40-6.50); %Eosinophils 2.6 % (0.0-10.0); %Lymphocytes 36.3 % (21.0-51.0); %Monocytes 7.2 % (0.0-10.0); %Neutrophils 52.9 % (42.0-75.0); Hemoglobin 12.1 g/dL (12.0-16.0); Mean Corpuscular HGB CONC 35.4 g/dL (32.0-36.0); Mean Corpuscular Hemoglobin 35.7 pg (27.0-31.0); Mean Platelet Volume 8.7 fL (7.4-10.4); Platelet Count 140 thou/uL (130-400); RBC Distribution Width 11.6 % (11.5-14.5); Red Blood Cell (RBC) Count 3.39 mill/uL (4.20-5.40); White Blood Cell (WBC) Count 7.1 thou/uL (4.8-10.8)
[2020-05-21] MEDS: Ondansetron PF 4 MG/2 ML Vial IVP PRN (02:11)
[2020-05-21 02:49] LABS: ALT (SGPT) 63 U/L (8-55); AST (SGOT) 90 U/L (5-34); Albumin 3.2 g/dL (3.4-4.8); Alkaline Phosphatase 95 U/L (40-110); Anion Gap 13 mmol/L (10-20); BUN (Urea Nitrogen) Less than 4 mg/dL (9.8-20.1); Bilirubin, Total 0.6 mg/dL (0.2-1.2); Calc. Creatinine Clearance 0 mL/min (70-130); Calcium 7.9 mg/dL (7.8-10.44); Carbon Dioxide 22 mmol/L (23-31); Cardiac Risk 2.1 (Less than 4.5); Chloride 97 mmol/L (98-107); Cholesterol 101 mg/dl (< 200 Desired); Globulin 3.5 g/dL (2.4-3.5); Glucose 184 mg/dL (80-115); HDL Cholesterol 49 mg/dL (>60 Neg Risk); LDL Cholesterol, Calculated 43 mg/dL; Lipase 115 U/L (8-78); Magnesium 1.1 mg/dL (1.6-2.6); Potassium 3.4 mmol/L (3.5-5.1); Protein, Total 6.7 g/dL (5.8-8.1); Sodium 129 mmol/L (136-145); Triglycerides 47 mg/dL (Less than 150)
[2020-05-21 02:59] LABS: Amphetamine Not Detected (NotDetected); Benzodiazepine Screen Detected (NotDetected); Cocaine Metabolite Screen Not Detected (NotDetected); Medtox Reader # READER 4; Methamphetamine Not Detected (NotDetected); Opiate Screen Not Detected (NotDetected); Phencyclidine (PCP) Not Detected (NotDetected); THC/Cannabinoid Screen Not Detected (NotDetected)
[2020-05-21 03:00] LABS: Barbiturates Screen Not Detected (NotDetected); Medtox Control Line Valid? VALID (VALID); Methadone Not Detected (NotDetected); Oxycodone Screen Not Detected (NotDetected); Tricyclic Screen Not Detected (NotDetected)
[2020-05-21 05:16] LABS: SARS-CoV-2 PCR by NAA Not Detected (NotDetected)
[2020-05-21 05:46] VITALS: BMI 15.5
--- NOTE | 2020-05-21 08:23 | ULT ---
GALLBLADDER ULTRASOUND: HISTORY: Right upper quadrant pain, pancreatitis. FINDINGS: Real-time imaging of the right upper quadrant shows the gallbladder to have been removed. The common duct is dilated. It measures 1.4 cm. The visualized liver parenchyma shows no focal abnormalities. There is a suggestion of some element of fatty change. Complex cystic area within the pancreatic head measures 1.2 cm in size. Please see the CT report for a better description of these findings. Pancreatic calcifications are noted. IMPRESSION: 1. Post cholecystectomy change. There is a somewhat dilated extrahepatic duct measuring in the 1.4 cm range. I appreciate only some very mild intrahepatic ductal prominence. These changes could be o n the basis of cholecystectomy. 2. Changes of chronic pancreatitis. Cystic lesion in the pancreatic head as described in the CT rep ort. Please refer to that report. This is a complex cystic lesion, potentially a pseudocyst. POS: OFF
[2020-05-21] MEDS: Multivitamin W/ Minerals 1 TAB PO SCH (08:32)
[2020-05-21] MEDS: Folic Acid 1 MG TAB PO SCH (08:32)
[2020-05-21] MEDS: Amlodipine 5 MG TAB PO SCH (08:32)
[2020-05-21] MEDS ORDERED: Pantoprazole 40 MG VIAL IVP SCH ×2 (09:00→21:00)
[2020-05-21] MEDS ORDERED: Enoxaparin Sodium 40 MG/0.4 ML SYRINGE SC SCH (09:00)
[2020-05-21] MEDS ORDERED: Potassium Chloride 20 MEQ TAB PO SCH (09:30)
[2020-05-21] MEDS ORDERED: Magnesium Sulfate 4 GM in Sodium Chloride 0.9% 250 ML 250 ML IVPB SCH (09:45)
[2020-05-21] MEDS ORDERED: Sodium Chloride 0.9% (PF) 10 ML VIAL FS PRN (11:30)
--- NOTE | 2020-05-21 15:17 | PDOC.HOSPP ---
- Subjective Encounter Date: 05/21/20 Encounter Time: 11:10 Subjective: Patient seen this morning she is on clear liquid diet. Tolerating denies any significant abdominal discomfort. Asking for pain medication - Objective Vital Signs & Weight: Vital Signs (12 hours) Temp Pulse Resp BP BP Pulse Ox 05/21/20 11:00 98.5 F 79 18 129/72 93 L 05/21/20 08:32 96 142/83 H 05/21/20 08:25 98 05/21/20 07:39 98.4 F 96 16 142/83 H 98 05/21/20 05:55 97 05/21/20 05:10 74 20 160/88 H 97 Weight Weight 90 lb 12.8 oz Result Diagrams: 05/21/20 02:04 05/21/20 02:04 Hospitalist ROS - Medication Medications: Active Medications Generic Name Dose Route Start Last Admin Trade Name Freq PRN Reason Stop Dose Admin Amlodipine Besylate 5 mg 05/21/20 09:00 05/21/20 08:32 Amlodipine 5 Mg Tab PO 5 mg DAILY SUSANNA Administration Folic Acid 1 mg 05/21/20 09:00 05/21/20 08:32 Folic Acid 1 Mg Tab PO 1 mg DAILY SUSANNA Administration Sodium Chloride 1,000 mls @ 120 mls/hr 05/21/20 02:00 05/21/20 10:10 Normal Saline 0.9% IV 1,000 mls .Q8H20M SUSANNA Administration Iron/Minerals/Multivitamins 1 tab 05/21/20 09:00 05/21/20 08:32 Multivitamin W/ Minerals 1 Tab PO 1 tab DAILY SUSANNA Administration Morphine Sulfate 2 mg 05/21/20 01:08 05/21/20 11:29 Morphine 2 Mg/Ml Vial SLOW IVP 2 mg Q2H PRN Administration Severe Pain (7-10) Ondansetron HCl 4 mg 05/21/20 01:48 05/21/20 02:11 Ondansetron Pf 4 Mg/2 Ml Vial IVP 4 mg Q6H PRN Administration Nausea/Vomiting Sodium Chloride 10 ml 05/21/20 09:00 05/21/20 08:32 Flush - Normal Saline 10 Ml Syringe IVF 10 ml Q12HR SUSANNA Administration Hospitalist Exam Vitals: Vital Signs (12 hours) Temp Pulse Resp BP BP Pulse Ox 05/21/20 11:00 98.5 F 79 18 129/72 93 L 05/21/20 08:32 96 142/83 H 05/21/20 08:25 98 05/21/20 07:39 98.4 F 96 16 142/83 H 98 05/21/20 05:55 97 05/21/20 05:10 74 20 160/88 H 97 Weight Weight 90 lb 12.8 oz General Appearance: NAD, awake alert Eye: PERRL, anicteric sclera ENT: normocephalic atraumatic Neck: supple Heart: RRR, normal peripheral pulses Respiratory: CTAB, normal chest expansion Gastrointestinal: soft, normal bowel sounds Neurological: no focal deficits Psychiatric: A&O x 3 Hosp A/P - Plan Acute on chronic pancreatitis Code(s): K85.90 - ACUTE PANCREATITIS WITHOUT NECROSIS OR INFECTION, UNSP; K86.1 - OTHER CHRONIC PANCREATITIS Status: Acute (2) Hypokalemia Code(s): E87.6 - HYPOKALEMIA Status: Acute (3) Hyponatremia Code(s): E87.1 - HYPO-OSMOLALITY AND HYPONATREMIA Status: Acute (4) Unhealthy alcohol drinking behavior Code(s): Z78.9 - OTHER SPECIFIED HEALTH STATUS Status: Chronic (5) COPD (chronic obstructive pulmonary disease) Status: Chronic (6) HTN (hypertension) Code(s): I10 - ESSENTIAL (PRIMARY) HYPERTENSION Status: Chronic (7) Anxiety Code(s): F41.9 - ANXIETY DISORDER, UNSPECIFIED Status: Chronic Plan: Patient with chronic pancreatitis, unhealthy alcohol drinking behavior, former illicit drug abuse, COPD, HTN and anxiety presents for epigastric pain with associated nausea vomiting diarrhea. Imaging showed pseudocyst formation with peripancreatic stranding. No leukocytosis. EtOH 27. UA unremarkable. #Acute on chronic pancreatitis Presented lipase 216. AST 104 and ALT 102, NL bilirubin. Likely related unhealthy alcohol intake. Will obtain right upper quadrant ultrasound.--------------> Post cholecystectomy changes extrahepatic duct measuring 1.4 cm. Changes consistent with chronic pancreatitis. Pseudocyst -IV fluids, analgesia, antiemetics. CT positive pseudocyst, No necrosis or abscess. recommendation follow-up 6 to 8 weeks repeat imaging. #Hypokalemia -Being replaced #Hyponatremia probably chronic wound secondary to alcohol Mild. Presented with sodium level 125. Improving with hydration -Follow renal recommendation. #Unhealthy alcohol drinking behavior Chronic. Drinks 6 beers per day. ASE protocol. #COPD Chronic, stable. #HTN amlodipine.
[2020-05-21] MEDS: Pantoprazole 40 MG VIAL IVP SCH (19:48)
[2020-05-21 21:26] LABS: Anion Gap 9 mmol/L (10-20); BUN (Urea Nitrogen) Less than 4 mg/dL (9.8-20.1); Calc. Creatinine Clearance 70 mL/min (70-130); Calcium 7.2 mg/dL (7.8-10.44); Carbon Dioxide 24 mmol/L (23-31); Chloride 99 mmol/L (98-107); Glucose 167 mg/dL (80-115); Potassium 3.2 mmol/L (3.5-5.1); Sodium 129 mmol/L (136-145)
[2020-05-22] MEDS: Sodium Chloride 0.9% 1,000 ML IV SCH ×2 (03:14→05:19)
[2020-05-22] MEDS: Morphine 2 MG/ML VIAL SLOW IVP PRN ×5 (03:56→20:17)
[2020-05-22] MEDS ORDERED: Diazepam 5 MG TAB PO PRN (04:00)
[2020-05-22] MEDS: Potassium Chloride 20 MEQ TAB PO SCH ×3 (06:10→16:34)
[2020-05-22 07:17] LABS: #Eosinphils 0.2 thou/uL (0.0-0.7); #Lymphocytes 1.5 thou/uL (1.20-3.40); #Monocytes 0.3 thou/uL (0.11-0.59); %Basophils 0.8 % (0.0-1.0); %Eosinophils 3.8 % (0.0-10.0); %Lymphocytes 30.2 % (21.0-51.0); %Monocytes 5.2 % (0.0-10.0); %Neutrophils 59.9 % (42.0-75.0); Hemoglobin 11.6 g/dL (12.0-16.0); Mean Corpuscular HGB CONC 35.3 g/dL (32.0-36.0); Mean Corpuscular Hemoglobin 36.7 pg (27.0-31.0); Mean Platelet Volume 9.2 fL (7.4-10.4); Platelet Count 120 thou/uL (130-400); RBC Distribution Width 11.5 % (11.5-14.5); Red Blood Cell (RBC) Count 3.16 mill/uL (4.20-5.40)
[2020-05-22 07:25] LABS: Albumin 3.1 g/dL (3.4-4.8)
[2020-05-22 07:26] LABS: Anion Gap 11 mmol/L (10-20); BUN (Urea Nitrogen) Less than 4 mg/dL (9.8-20.1); Calc. Creatinine Clearance 79 mL/min (70-130); Calcium 7.5 mg/dL (7.8-10.44); Carbon Dioxide 24 mmol/L (23-31); Chloride 97 mmol/L (98-107); Glucose 115 mg/dL (80-115); Magnesium 1.2 mg/dL (1.6-2.6); Sodium 129 mmol/L (136-145)
[2020-05-22 07:36] LABS: Phosphorus 2.9 mg/dL (2.3-4.7)
--- NOTE | 2020-05-22 07:49 | CON ---
DATE OF CONSULTATION: 05/21/2020 SERVICE: Nephrology. REASON FOR CONSULTATION: Hyponatremia and hypokalemia. REQUESTING PROVIDER: Ole Combs MD HISTORY OF PRESENT ILLNESS: A 60-year-old female with known history of COPD, chronic pancreatitis, hypertension, chronic alcohol use, who was admitted due to acute concern of worsening abdominal pain associated with nausea and vomiting since May 20. The patient reported that the pain is located in the epigastric region, but also involves the whole abdomen diffusely. She denied hematemesis, hematochezia, melena, or dysuria. She admitted to alcohol abuse. The patient on presentation was also found to have sodium of 125 and potassium of 2.8 while BUN and creatinine were less than 4 and 0.52 respectively. Due to electrolyte derangement, Nephrology consult was requested. Since admission, sodium has gone up from 125 at 2000 hours on May 20 to 129 at 2 a.m. on May 21. She continued to complain of abdominal pain. She denied fever or focal weakness. The patient has been taking NSAIDs at home including ibuprofen and Tylenol with no significant improvement. PAST MEDICAL HISTORY: 1. Chronic pancreatitis. 2. Chronic alcohol abuse. 3. COPD. 4. Hypertension. 5. Prior history of PE. 6. Anxiety disorder. PAST SURGICAL HISTORY: 1. Cholecystectomy. 2. Tubal ligation. FAMILY HISTORY: Noncontributory. SOCIAL HISTORY: The patient lives with family. Currently uses alcohol, drinking about 6 pack of beer daily. She also admitted to smoking, smoking about 2 packs per day. Admitted to use of marijuana and amphetamine previously. ALLERGIES: PENICILLIN. PRIOR TO HOSPITAL MEDICATIONS: As follows; 1. Folic acid 1 mg p.o. daily. 2. Ibuprofen 800 mg p.o. t.i.d. 3. Amlodipine 10 mg p.o. daily. 4. Tramadol 50 mg p.o. t.i.d. 5. Thiamine 50 mg p.o. daily. CURRENT HOSPITAL MEDICATIONS: As follows; 1. Normal saline at 120 mL per hour. 2. Amlodipine 5 mg p.o. daily. 3. Magnesium mg p.o. daily. 4. Multivitamin 1 tablet p.o. daily. 5. Folic acid 1 mg p.o. daily. 6. Protonix 40 mg IV daily. 7. Thiamine 100 mg p.o. daily. 8. Diazepam p.r.n. for alcohol withdrawal. 9. Morphine 2 mg IV push q.2 hours p.r.n. REVIEW OF SYSTEMS: Twelve-point review of systems performed was negative other than pertinent positives and negatives including the history of present illness. PHYSICAL EXAMINATION: VITAL SIGNS: Temperature 98.4, pulse 96, respiratory rate 16, SpO2 of 98% on room air, blood pressure is 142/83. GENERAL: Chronically ill-looking female, in mild painful distress. Afebrile. Anicteric and acyanotic. HEENT: Normocephalic and atraumatic. Oral mucosa is moist. NECK: Supple with no JVD. CARDIOVASCULAR: Regular rhythm and rate with normal heart sounds 1 and 2. RESPIRATORY: Fair air entry with scattered transmitted breath sounds. No obvious respiratory distress appreciated. GASTROINTESTINAL: Marked epigastric tenderness as well as diffuse tenderness of the whole abdomen noted. EXTREMITIES: Grossly normal looking, atraumatic with no edema or erythema except left upper arm, which is in a cast from prior injury. CENTRAL NERVOUS SYSTEM: Conscious, alert and oriented x3 with appropriate mental status. Cranial nerves 2 through 12 are grossly intact. No tremor appreciated. DIAGNOSTIC DATA: CBC earlier today showed WBC count of 7.1, hemoglobin of 12.1, MCV of 101, and platelet of 140. Chemistry earlier this morning showed sodium 129, potassium 3.4, chloride 97, CO2 of 22, BUN less than 4, creatinine 0.52, glucose 184, calcium 7.9, total bilirubin 0.6, AST 90, ALT 63, alkaline phosphatase 95, total protein 6.3, albumin 3.2. Lipase on presentation was 260, but that has decreased to 115 earlier this morning. Magnesium is 1.1 and phosphorus is 3.0. Plasma osmolality is 273 while urine osmolality is 141. Urinalysis showed clear colorless urine with pH of 7.0; specific gravity of 1.003; negative protein, ketone, blood, nitrites, bilirubin, and leukocyte esterase. Alcohol level was 25 on presentation while urine drug screen was positive for benzodiazepines. CT scan of the abdomen and pelvis without IV contrast showed findings most suspicious for changes of chronic pancreatitis. There is an interval development of peripherally enhancing cystic collection with a central area of calcification involving the pancreatic head suspicious for cirrhosis formation. Stable left mid renal cortical calcification as well as colonic diverticulosis without evidence of active diverticulitis, mild fatty liver and cholecystectomy were noted. ASSESSMENT: 1. Hyponatremia: Most likely due to beer potomania with poor solute intake as well as volume depletion with appropriate anti-diuretic hormone secretion. Hypotonic solution in the presence of hypotonic saline is appropriate. 2. Hypokalemia: Due to poor oral intake. 3. Hypomagnesemia: Severe. Due to poor oral intake. 4. Epigastric pain: Seems to be multifactorial either from acute pancreatitis or acute gastritis. The patient on alcohol binge is at increased risk of alcohol-induced gastritis. The patient also was on nonsteroidal anti-inflammatory drugs. 5. Acute on chronic pancreatitis. 6. Presumed acute gastritis. PLAN: 1. We will replete the serum potassium with potassium chloride. 2. We will also continue sodium chloride infusion as the patient is clearly volume depleted. 3. We will also replete serum magnesium with 4 g of magnesium sulfate. 4. We will repeat BMP and monitor other electrolytes and correct as indicated. 5. We will also increase Protonix to 40 b.i.d. intravenously. 6. We will recommend GI evaluation given severity of this abdominal pain and increased risk factors. Further treatment will follow depending on hospital course. We will follow along with you. Job ID: [id number]
[2020-05-22] MEDS: Folic Acid 1 MG TAB PO SCH (08:06)
[2020-05-22] MEDS: Thiamine 100 MG TAB PO SCH (08:06)
[2020-05-22] MEDS: Multivitamin W/ Minerals 1 TAB PO SCH (08:06)
[2020-05-22] MEDS: Amlodipine 5 MG TAB PO SCH (08:06)
[2020-05-22] MEDS: Pantoprazole 40 MG VIAL IVP SCH ×2 (08:06→19:56)
[2020-05-22] MEDS: Magnesium Oxide 400 MG TAB PO SCH (08:06)
[2020-05-22] MEDS ORDERED: Magnesium Sulfate 4 GM in Sodium Chloride 0.9% 250 ML 250 ML IVPB SCH (08:45)
[2020-05-22] MEDS ORDERED: Potassium Phosphate 30 MMOL in Sodium Chloride 0.9% 250 ML 250 ML IVPB SCH (08:45)
--- NOTE | 2020-05-22 08:55 | PDOC.NEPPN ---
- Subjective Encounter Date: 05/22/20 Subjective: Feeling better. Hungry and angry that her food is not served yet. Still having abdominal pain. No nausea or vomiting or fever. - Objective Vital Signs & Weight: Vital Signs (12 hours) Temp Pulse Resp BP BP BP Pulse Ox 05/22/20 08:06 98 123/81 05/22/20 08:00 98.4 F 98 16 123/81 93 L 05/22/20 04:00 98.8 F 88 18 131/71 131/71 93 L 05/22/20 00:00 134/70 05/21/20 23:47 99 F 79 18 134/70 95 Weight Weight 90 lb 12.8 oz I&O: 05/21/20 05/22/20 05/23/20 06:59 06:59 06:59 Intake Total 1467 Balance 1467 Result Diagrams: 05/22/20 06:55 05/22/20 06:55 Nephrology ROS - Medication Medications: Active Medications Generic Name Dose Route Start Last Admin Trade Name Freq PRN Reason Stop Dose Admin Amlodipine Besylate 5 mg 05/21/20 09:00 05/22/20 08:06 Amlodipine 5 Mg Tab PO 5 mg DAILY SUSANNA Administration Folic Acid 1 mg 05/21/20 09:00 05/22/20 08:06 Folic Acid 1 Mg Tab PO 1 mg DAILY SUSANNA Administration Sodium Chloride 1,000 mls @ 120 mls/hr 05/21/20 02:00 05/22/20 05:19 Normal Saline 0.9% IV 1,000 mls .Q8H20M SUSANNA Administration Iron/Minerals/Multivitamins 1 tab 05/21/20 09:00 05/22/20 08:06 Multivitamin W/ Minerals 1 Tab PO 1 tab DAILY SUSANNA Administration Magnesium Oxide 400 mg 05/22/20 09:00 05/22/20 08:06 Magnesium Oxide 400 Mg Tab PO 400 mg DAILY SUSANNA Administration Morphine Sulfate 2 mg 05/21/20 01:08 05/22/20 08:05 Morphine 2 Mg/Ml Vial SLOW IVP 2 mg Q2H PRN Administration Severe Pain (7-10) Ondansetron HCl 4 mg 05/21/20 01:48 05/21/20 02:11 Ondansetron Pf 4 Mg/2 Ml Vial IVP 4 mg Q6H PRN Administration Nausea/Vomiting Pantoprazole Sodium 40 mg 05/21/20 21:00 05/22/20 08:06 Pantoprazole 40 Mg Vial IVP 40 mg BID SUSANNA Administration Potassium Chloride 40 meq 05/22/20 06:00 05/22/20 06:10 Potassium Chloride 20 Meq Tab PO 05/22/20 12:01 40 meq Q6HR SUSANNA Administration Sodium Chloride 10 ml 05/21/20 09:00 05/22/20 08:07 Flush - Normal Saline 10 Ml Syringe IVF 10 ml Q12HR SUSANNA Administration Sodium Chloride 10 ml 05/21/20 11:30 05/21/20 19:48 Sodium Chloride 0.9% (Pf) 10 Ml Vial FS 10 ml PRN PRN Administration RECONSTITUTION Thiamine HCl 100 mg 05/22/20 09:00 05/22/20 08:06 Thiamine 100 Mg Tab PO 100 mg DAILY SUSANNA Administration - Exam General Appearance: awake alert General - other findings: thin Eye: anicteric sclera ENT: normocephalic atraumatic, moist mucosa Neck: supple, symmetric, no JVD Respiratory: no wheezes, no rales, no ronchi, normal chest expansion, no tachypnea Cardiovascular: RRR Gastrointestinal: soft, non-distended, normal bowel sounds, tender to palpation Extremities: no edema Neurological: CN's grossly intact, no focal deficits PSYCH: A&O x 3 Nephrology Results - Labs Result Diagrams: 05/22/20 06:55 05/22/20 06:55 Lab results: WBC 5.0 thou/uL (4.8-10.8) 05/22/20 06:55 Hgb 11.6 g/dL (12.0-16.0) L 05/22/20 06:55 Hct 32.8 % (36.0-47.0) L 05/22/20 06:55 MCV 104.0 fL (78.0-98.0) H 05/22/20 06:55 Plt Count 120 thou/uL (130-400) L 05/22/20 06:55 Neutrophils % 59.9 % (42.0-75.0) 05/22/20 06:55 Sodium 129 mmol/L (136-145) L 05/22/20 06:55 Potassium 3.0 mmol/L (3.5-5.1) L 05/22/20 06:55 Chloride 97 mmol/L (98-107) L 05/22/20 06:55 Carbon Dioxide 24 mmol/L (23-31) 05/22/20 06:55 BUN Less than 4 mg/dL (9.8-20.1) L 05/22/20 06:55 Creatinine 0.48 mg/dL (0.6-1.1) L 05/22/20 06:55 Glucose 115 mg/dL (80-115) 05/22/20 06:55 Calcium 7.5 mg/dL (7.8-10.44) L 05/22/20 06:55 Total Bilirubin 0.6 mg/dL (0.2-1.2) 05/21/20 02:04 AST 90 U/L (5-34) H 05/21/20 02:04 ALT 63 U/L (8-55) H 05/21/20 02:04 Alkaline Phosphatase 95 U/L (40-110) 05/21/20 02:04 Serum Total Protein 6.7 g/dL (5.8-8.1) 05/21/20 02:04 Albumin 3.1 g/dL (3.4-4.8) L 05/22/20 06:55 Lipase 24 U/L (8-78) 05/22/20 06:55 Urine Ketones Negative mg/dL (Negative) 05/20/20 21:01 Urine Blood Negative (Negative) 05/20/20 21:01 Urine Nitrite Negative (Negative) 05/20/20 21:01 Ur Leukocyte Esterase Negative Gema/uL (Negative) 05/20/20 21:01 Sodium 129 mmol/L (136-145) L 05/22/20 06:55 Potassium 3.0 mmol/L (3.5-5.1) L 05/22/20 06:55 Chloride 97 mmol/L (98-107) L 05/22/20 06:55 Carbon Dioxide 24 mmol/L (23-31) 05/22/20 06:55 Anion Gap 11 mmol/L (10-20) 05/22/20 06:55 BUN Less than 4 mg/dL (9.8-20.1) L 05/22/20 06:55 Creatinine 0.48 mg/dL (0.6-1.1) L 05/22/20 06:55 Glucose 115 mg/dL (80-115) 05/22/20 06:55 Calcium 7.5 mg/dL (7.8-10.44) L 05/22/20 06:55 Phosphorus 2.9 mg/dL (2.3-4.7) 05/22/20 06:55 Magnesium 1.2 mg/dL (1.6-2.6) L 05/22/20 06:55 Albumin 3.1 g/dL (3.4-4.8) L 05/22/20 06:55 Nephrology AP PN - Plan ASSESSMENT: Hyponatremia: Due to beer potomania with poor solute intake as well as volume depletion with appropriate anti-diuretic hormone secretion. Increasing Hypokalemia: Due to poor oral intake and hypomagnesemia Hypomagnesemia: Severe. Due to poor oral intake. Epigastric pain: Due to acute pancreatitis and or acute gastritis. Acute on chronic pancreatitis. Presumed acute gastritis. Chronic alcohol abuse PCM PLAN DC IVF and Evarts oral intake advised Replete serum potassium with KCL. Give 120 meq. Also give 4 grams of magnesium suphate. Start ensure enlive. Recheck electrolytes in in the Am.
--- NOTE | 2020-05-22 13:04 | PDOC.HOSPP ---
- Subjective Encounter Date: 05/22/20 Encounter Time: 10:45 Subjective: Patient seen this morning. She is tolerating diet. Pain is less. Globin stable. His sodium still remain the same around 129. Potassium being supplemented. Magnesium quite low despite being on daily mag supplement. However I did tell her it is too early to start her on a regular diet but she insisted that she likes to have that rather than clear liquid diet. - Objective Vital Signs & Weight: Vital Signs (12 hours) Temp Pulse Resp BP BP BP Pulse Ox 05/22/20 12:30 118/70 05/22/20 12:00 97.9 F 92 20 118/70 94 L 05/22/20 08:06 98 123/81 05/22/20 08:00 98.4 F 98 16 123/81 123/81 93 L 05/22/20 04:00 98.8 F 88 18 131/71 131/71 93 L Weight Admit Weight 90 lb 12.8 oz Weight 90 lb 12.8 oz I&O: 05/21/20 05/22/20 05/23/20 06:59 06:59 06:59 Intake Total 1467 Balance 1467 Result Diagrams: 05/22/20 06:55 05/22/20 06:55 Hospitalist ROS - Medication Medications: Active Medications Generic Name Dose Route Start Last Admin Trade Name Freq PRN Reason Stop Dose Admin Amlodipine Besylate 5 mg 05/21/20 09:00 05/22/20 08:06 Amlodipine 5 Mg Tab PO 5 mg DAILY SUSANNA Administration Folic Acid 1 mg 05/21/20 09:00 05/22/20 08:06 Folic Acid 1 Mg Tab PO 1 mg DAILY SUSANNA Administration Iron/Minerals/Multivitamins 1 tab 05/21/20 09:00 05/22/20 08:06 Multivitamin W/ Minerals 1 Tab PO 1 tab DAILY SUSANNA Administration Magnesium Oxide 400 mg 05/22/20 09:00 05/22/20 08:06 Magnesium Oxide 400 Mg Tab PO 400 mg DAILY SUSANNA Administration Morphine Sulfate 2 mg 05/21/20 01:08 05/22/20 12:30 Morphine 2 Mg/Ml Vial SLOW IVP 2 mg Q2H PRN Administration Severe Pain (7-10) Ondansetron HCl 4 mg 05/21/20 01:48 05/21/20 02:11 Ondansetron Pf 4 Mg/2 Ml Vial IVP 4 mg Q6H PRN Administration Nausea/Vomiting Pantoprazole Sodium 40 mg 05/21/20 21:00 05/22/20 08:06 Pantoprazole 40 Mg Vial IVP 40 mg BID SUSANNA Administration Sodium Chloride 10 ml 05/21/20 09:00 05/22/20 08:07 Flush - Normal Saline 10 Ml Syringe IVF 10 ml Q12HR SUSANNA Administration Sodium Chloride 10 ml 05/21/20 11:30 05/21/20 19:48 Sodium Chloride 0.9% (Pf) 10 Ml Vial FS 10 ml PRN PRN Administration RECONSTITUTION Thiamine HCl 100 mg 05/22/20 09:00 05/22/20 08:06 Thiamine 100 Mg Tab PO 100 mg DAILY SUSANNA Administration Hospitalist Exam Vitals: Vital Signs (12 hours) Temp Pulse Resp BP BP BP Pulse Ox 05/22/20 12:30 118/70 05/22/20 12:00 97.9 F 92 20 118/70 94 L 05/22/20 08:06 98 123/81 05/22/20 08:00 98.4 F 98 16 123/81 123/81 93 L 05/22/20 04:00 98.8 F 88 18 131/71 131/71 93 L Weight Admit Weight 90 lb 12.8 oz Weight 90 lb 12.8 oz General Appearance: NAD, awake alert, ill appearing Eye: PERRL ENT: normocephalic atraumatic Neck: supple Heart: RRR, normal peripheral pulses Respiratory: CTAB, normal chest expansion Gastrointestinal: soft, normal bowel sounds Neurological: no focal deficits Musculoskeletal: generalized weakness Psychiatric: normal affect, normal behavior, A&O x 3 Hosp A/P - Plan Acute on chronic pancreatitis Code(s): K85.90 - ACUTE PANCREATITIS WITHOUT NECROSIS OR INFECTION, UNSP; K86.1 - OTHER CHRONIC PANCREATITIS Status: Acute (2) Hypokalemia Code(s): E87.6 - HYPOKALEMIA Status: Acute (3) Hyponatremia Code(s): E87.1 - HYPO-OSMOLALITY AND HYPONATREMIA Status: Acute (4) Unhealthy alcohol drinking behavior Code(s): Z78.9 - OTHER SPECIFIED HEALTH STATUS Status: Chronic (5) COPD (chronic obstructive pulmonary disease) Status: Chronic (6) HTN (hypertension) Code(s): I10 - ESSENTIAL (PRIMARY) HYPERTENSION Status: Chronic (7) Anxiety Code(s): F41.9 - ANXIETY DISORDER, UNSPECIFIED Status: Chronic Plan: Patient with chronic pancreatitis, unhealthy alcohol drinking behavior, former illicit drug abuse, COPD, HTN and anxiety presents for epigastric pain with associated nausea vomiting diarrhea. Imaging showed pseudocyst formation with peripancreatic stranding. No leukocytosis. EtOH 27. UA unremarkable. #Acute on chronic pancreatitis Alcohol induced Presented lipase 216. AST 104 and ALT 102, NL bilirubin. Likely related unhealthy alcohol intake. Will obtain right upper quadrant ultrasound.--------------> Post cholecystectomy changes extrahepatic duct measuring 1.4 cm. Changes consistent with chronic pancreatitis. Pseudocyst -IV fluids, analgesia, antiemetics. CT positive pseudocyst, No necrosis or abscess. recommendation follow-up 6 to 8 weeks repeat imaging. #Hypokalemia -Being replaced #Hyponatremia probably chronic wound secondary to alcohol Mild. Presented with sodium level 125. Improving with hydration -Follow renal recommendation. #Unhealthy alcohol drinking behavior Chronic. Drinks 6 beers per day. ASE protocol. #COPD Chronic, stable. #HTN amlodipine. 24th -Patient was complaining of new pain that was not like used to be with the pancreatitis issue. Pain is mostly in the epigastric area not in the lower quadrants. She is stating that she is quite familiar with alcohol induced pancreatitis related pain but this pain is much severe and worse and appears to be new. Rufina use of this I have consulted GI for their input in addition to being recommended by the engine repairer production. Ongoing aggressive hydration for her pancreatitis. Her lipase is trending down she is clinically better to start her on a diet. started on a regular diet this morning and she seems to be handling well without discomfort. Chronic hyponatremia secondary to alcohol use Hypokalemia and hypomagnesemia being supplemented. Appreciate nephrology help
[2020-05-22] MEDS: Ondansetron PF 4 MG/2 ML Vial IVP PRN (20:17)
[2020-05-23] MEDS: Morphine 2 MG/ML VIAL SLOW IVP PRN ×6 (00:52→22:02)
--- NOTE | 2020-05-23 01:10 | CON ---
DATE OF CONSULTATION: 05/22/2020 REASON FOR CONSULTATION: Acute on chronic pancreatitis. CONSULTING PHYSICIAN: Ole Combs MD HISTORY OF PRESENT ILLNESS: The patient is a 60-year-old female with past medical history of COPD, hypertension, pulmonary embolism (not currently on anticoagulation), alcohol abuse, anxiety, and chronic pancreatitis, presenting with increased midepigastric abdominal pain. She states that she was in her usual state of health until approximately 2 days ago when she experienced the acute onset of midepigastric abdominal pain characterized as a sharp/stabbing/squeezing type sensation, would radiate to the mid back, was constant with waxing/waning severity, and reached the severity of 10/10. The pain was worse with increased physical activity and pressure to the epigastric region and better with pulling her knees up to her chest and administration of pain medications during this hospitalization. This was associated with nausea and vomiting with only one episode of discrete emesis that was approximately 2 days ago. She denied any fevers, chills, hematemesis, melena, hematochezia, dysphagia, or odynophagia. With this worsening pain, it prompted her to seek healthcare assistance at the [facility] ER, where she had labs and imaging consistent with acute pancreatitis and was ultimately admitted to the hospital. Since being admitted to the hospital approximately 24-48 hours ago, she did have IV fluids administration in addition to pain control and advancing her diet to currently a regular diet. She has been able to tolerate a regular diet without any difficulty. No significant increase in her abdominal pain. However, she does continue to have significant abdominal pain. When speaking with the patient, she states that this abdominal pain is very consistent with her prior bouts of pancreatitis, only more severe in character. However, the pain does not increase with the ingestion of either solids or liquid food stuffs (of note, the patient was taking increased NSAIDs as an outpatient prior to admission). REVIEW OF SYSTEMS: A 10-category review of systems was obtained with all responses negative except for the pertinent positives as listed in HPI. PAST MEDICAL HISTORY: As per HPI. PAST SURGICAL HISTORY: Cholecystectomy and bilateral tubal ligation. FAMILY HISTORY: Denies any GI malignancies. SOCIAL HISTORY: Denies any illicit drug use, but does smoke approximately two packs per day for the last 30 years. She also was drinking approximately six 12-ounce beers daily prior to admission. OUTPATIENT MEDICATIONS: Reviewed. ALLERGIES: PENICILLIN. PHYSICAL EXAMINATION: VITAL SIGNS: Temperature 98.7, pulse 75, blood pressure 132/76, respiratory rate 20, and saturating 99% on room air. GENERAL: The patient was lying in bed, in no acute distress. Alert and oriented x4. HEENT: Normocephalic and atraumatic. NECK: Supple. No JVD or scleral icterus noted. CARDIOVASCULAR: Regular rate and rhythm with no discernible murmurs, gallops, or rubs. RESPIRATORY: Clear to auscultation bilaterally with no discernible wheezes or rales. ABDOMEN: Normoactive bowel sounds. Soft with mild guarding. No abdominal distention. Tenderness to palpation in the epigastric and left upper quadrant. EXTREMITIES: No cyanosis, clubbing, or edema. LABORATORY DATA: CBC with a white blood cell count of 5, hemoglobin 11.6, hematocrit 32.8, platelets 120. Chemistry with a sodium of 129, potassium 3, chloride 97, CO2 of 24, BUN less than 4, creatinine 0.48, glucose 115, AST 90, ALT 63, alkaline phosphatase 95, total bilirubin 0.6, albumin 3.2, lipase on admission 260. IMAGING DATA: CT of the abdomen/pelvis was obtained on May 20, 2020, which showed mild fatty liver changes in addition to surgical change consistent with cholecystectomy. Numerous calcifications were seen throughout the pancreas with a cystic fluid collection in the central pancreas near the head measuring approximately 2.3 cm in diameter. This was associated with main pancreatic ductal dilatation, but was stable when compared to previous. A few scattered diverticula were seen throughout the colon without evidence of diverticulitis and diffuse osteopenia was seen throughout the entire skeleton. ASSESSMENT AND PLAN: The patient is a 60-year-old female with past medical history of chronic obstructive pulmonary disease, hypertension, pulmonary embolism (not currently on anticoagulation), anxiety, alcohol abuse, and chronic pancreatitis, presenting with an acute on chronic episode of pancreatitis. Acute on chronic pancreatitis: The patient is presenting with acute onset of increased epigastric abdominal pain characterized as a sharp/stabbing/squeezing type sensation that radiated to the back and reached a severity of 10/10. Upon comparison with her prior bouts of pancreatitis, the location and character of the pain is very similar. However, this is a more severe course of her pancreatitis. Given the CT findings and the lipase greater than three times the upper limit of normal on admission, this is consistent with an acute exacerbation of her chronic pancreatitis. Currently responding to management thus far, although upon chart review, the patient did receive IV fluid administration, but was not administered via acute pancreatitis protocol (would have increased the administration to either 200-250 mL/h). At this time, the patient is tolerating a regular diet with no acute exacerbations in her abdominal pain with ingestion of either food or liquids and while the patient was taking increased amounts of NSAIDs as an outpatient, the likelihood of peptic ulcer disease is minimal as it should get worse with ingestion of food. RECOMMENDATIONS: 1. We will continue the patient on pantoprazole 40 mg IV b.i.d. 2. Would avoid any NSAIDs as they can further exacerbate her abdominal pain. 3. Pain control per primary team. 4. Would place the patient on an alcohol withdrawal protocol. 5. With the patient tolerating a diet at this point, one could consider discontinuation of the IV fluids. 6. Would place the patient on an appropriate bowel regimen including MiraLAX and/or bisacodyl to avoid constipation, which could further exacerbate her abdominal pain. 7. Would continue to monitor the patient's pain and will likely require a tincture of time for resolution of acute pancreatitis. We will continue to follow. Please call with any questions. Job ID: [id number]
[2020-05-23] MEDS: Ondansetron PF 4 MG/2 ML Vial IVP PRN (05:32)
[2020-05-23 06:09] LABS: #Basophils 0.1 thou/uL (0.0-0.2); #Eosinphils 0.2 thou/uL (0.0-0.7); #Lymphocytes 2.5 thou/uL (1.20-3.40); #Monocytes 0.4 thou/uL (0.11-0.59); #Neutrophils 3.2 thou/uL (1.40-6.50); %Basophils 1.1 % (0.0-1.0); %Eosinophils 2.8 % (0.0-10.0); %Lymphocytes 39.6 % (21.0-51.0); %Monocytes 6.9 % (0.0-10.0); %Neutrophils 49.7 % (42.0-75.0); Hemoglobin 11.5 g/dL (12.0-16.0); Mean Corpuscular HGB CONC 35.2 g/dL (32.0-36.0); Mean Corpuscular Hemoglobin 36.2 pg (27.0-31.0); Mean Platelet Volume 9.1 fL (7.4-10.4); Platelet Count 131 thou/uL (130-400); RBC Distribution Width 11.4 % (11.5-14.5); Red Blood Cell (RBC) Count 3.19 mill/uL (4.20-5.40); White Blood Cell (WBC) Count 6.3 thou/uL (4.8-10.8)
[2020-05-23 06:32] LABS: Anion Gap 9 mmol/L (10-20); BUN (Urea Nitrogen) 5 mg/dL (9.8-20.1); Calc. Creatinine Clearance 67 mL/min (70-130); Calcium 8.1 mg/dL (7.8-10.44); Carbon Dioxide 28 mmol/L (23-31); Chloride 95 mmol/L (98-107); Glucose 150 mg/dL (80-115); Potassium 3.8 mmol/L (3.5-5.1); Sodium 128 mmol/L (136-145)
[2020-05-23] MEDS: Polyethylene Glycol 3350 17 GM Packet PO SCH (08:13)
[2020-05-23] MEDS: Pantoprazole 40 MG VIAL IVP SCH ×2 (08:13→20:15)
[2020-05-23] MEDS: Potassium Chloride 20 MEQ TAB PO SCH ×2 (08:13→17:00)
[2020-05-23] MEDS: Folic Acid 1 MG TAB PO SCH (08:14)
[2020-05-23] MEDS: Magnesium Oxide 400 MG TAB PO SCH (08:14)
[2020-05-23] MEDS: Thiamine 100 MG TAB PO SCH (08:14)
[2020-05-23] MEDS: Multivitamin W/ Minerals 1 TAB PO SCH (08:14)
[2020-05-23] MEDS: Amlodipine 5 MG TAB PO SCH (08:14)
--- NOTE | 2020-05-23 10:05 | PDOC.NEPPN ---
- Subjective Encounter Date: 05/23/20 Subjective: Seen and examined. Feeling better.Oral intake is great - Objective Vital Signs & Weight: Vital Signs (12 hours) Temp Pulse Resp BP BP BP Pulse Ox 05/23/20 08:14 70 116/68 05/23/20 08:10 116/68 97 05/23/20 08:00 98.9 F 70 16 116/68 97 05/23/20 04:00 99.2 F 78 16 121/70 98 05/23/20 00:00 99.0 F 81 18 119/69 96 Weight Admit Weight 90 lb 12.8 oz Weight 90 lb 12.8 oz I&O: 05/22/20 05/23/20 05/24/20 06:59 06:59 06:59 Intake Total 1467 1760 Balance 1467 1760 Result Diagrams: 05/23/20 05:51 05/23/20 05:51 Nephrology ROS - Medication Medications: Active Medications Generic Name Dose Route Start Last Admin Trade Name Freq PRN Reason Stop Dose Admin Amlodipine Besylate 5 mg 05/21/20 09:00 05/23/20 08:14 Amlodipine 5 Mg Tab PO 5 mg DAILY SUSANNA Administration Folic Acid 1 mg 05/21/20 09:00 05/23/20 08:14 Folic Acid 1 Mg Tab PO 1 mg DAILY SUSANNA Administration Iron/Minerals/Multivitamins 1 tab 05/21/20 09:00 05/23/20 08:14 Multivitamin W/ Minerals 1 Tab PO 1 tab DAILY SUSANNA Administration Magnesium Oxide 400 mg 05/22/20 09:00 05/23/20 08:14 Magnesium Oxide 400 Mg Tab PO 400 mg DAILY SUSANNA Administration Morphine Sulfate 2 mg 05/21/20 01:08 05/23/20 09:48 Morphine 2 Mg/Ml Vial SLOW IVP 2 mg Q2H PRN Administration Severe Pain (7-10) Ondansetron HCl 4 mg 05/21/20 01:48 05/23/20 05:32 Ondansetron Pf 4 Mg/2 Ml Vial IVP 4 mg Q6H PRN Administration Nausea/Vomiting Pantoprazole Sodium 40 mg 05/21/20 21:00 05/23/20 08:13 Pantoprazole 40 Mg Vial IVP 40 mg BID SUSANNA Administration Polyethylene Glycol 17 gm 05/23/20 09:00 05/23/20 08:13 Polyethylene Glycol 3350 17 Gm Packet PO 17 gm DAILY SUSANNA Administration Potassium Chloride 40 meq 05/22/20 17:00 05/23/20 08:13 Potassium Chloride 20 Meq Tab PO 40 meq BID-WM SUSANNA Administration Sodium Chloride 10 ml 05/21/20 09:00 05/23/20 08:14 Flush - Normal Saline 10 Ml Syringe IVF 10 ml Q12HR SUSANNA Administration Sodium Chloride 10 ml 05/21/20 11:30 05/21/20 19:48 Sodium Chloride 0.9% (Pf) 10 Ml Vial FS 10 ml PRN PRN Administration RECONSTITUTION Thiamine HCl 100 mg 05/22/20 09:00 05/23/20 08:14 Thiamine 100 Mg Tab PO 100 mg DAILY SUSANNA Administration - Exam General Appearance: awake alert Eye: anicteric sclera ENT: normocephalic atraumatic, moist mucosa Neck: supple, symmetric, no JVD Respiratory: no wheezes, no ronchi, no tachypnea Respiratory - other findings: fair air entry bilaterally Cardiovascular: RRR Gastrointestinal: soft, non-distended, normal bowel sounds, tender to palpation Extremities: no edema Neurological: CN's grossly intact PSYCH: A&O x 3 Nephrology Results - Labs Result Diagrams: 05/23/20 05:51 05/23/20 05:51 Lab results: WBC 6.3 thou/uL (4.8-10.8) 05/23/20 05:51 Hgb 11.5 g/dL (12.0-16.0) L 05/23/20 05:51 Hct 32.8 % (36.0-47.0) L 05/23/20 05:51 MCV 103.0 fL (78.0-98.0) H 05/23/20 05:51 Plt Count 131 thou/uL (130-400) 05/23/20 05:51 Neutrophils % 49.7 % (42.0-75.0) 05/23/20 05:51 Sodium 128 mmol/L (136-145) L 05/23/20 05:51 Potassium 3.8 mmol/L (3.5-5.1) 05/23/20 05:51 Chloride 95 mmol/L (98-107) L 05/23/20 05:51 Carbon Dioxide 28 mmol/L (23-31) 05/23/20 05:51 BUN 5 mg/dL (9.8-20.1) L 05/23/20 05:51 Creatinine 0.57 mg/dL (0.6-1.1) L 05/23/20 05:51 Glucose 150 mg/dL (80-115) H 05/23/20 05:51 Calcium 8.1 mg/dL (7.8-10.44) 05/23/20 05:51 Total Bilirubin 0.6 mg/dL (0.2-1.2) 05/21/20 02:04 AST 90 U/L (5-34) H 05/21/20 02:04 ALT 63 U/L (8-55) H 05/21/20 02:04 Alkaline Phosphatase 95 U/L (40-110) 05/21/20 02:04 Serum Total Protein 6.7 g/dL (5.8-8.1) 05/21/20 02:04 Albumin 3.1 g/dL (3.4-4.8) L 05/22/20 06:55 Lipase 24 U/L (8-78) 05/22/20 06:55 Urine Ketones Negative mg/dL (Negative) 05/20/20 21:01 Urine Blood Negative (Negative) 05/20/20 21:01 Urine Nitrite Negative (Negative) 05/20/20 21:01 Ur Leukocyte Esterase Negative Gema/uL (Negative) 05/20/20 21:01 Sodium 128 mmol/L (136-145) L 05/23/20 05:51 Potassium 3.8 mmol/L (3.5-5.1) 05/23/20 05:51 Chloride 95 mmol/L (98-107) L 05/23/20 05:51 Carbon Dioxide 28 mmol/L (23-31) 05/23/20 05:51 Anion Gap 9 mmol/L (10-20) L 05/23/20 05:51 BUN 5 mg/dL (9.8-20.1) L 05/23/20 05:51 Creatinine 0.57 mg/dL (0.6-1.1) L 05/23/20 05:51 Glucose 150 mg/dL (80-115) H 05/23/20 05:51 Calcium 8.1 mg/dL (7.8-10.44) 05/23/20 05:51 Phosphorus 2.9 mg/dL (2.3-4.7) 05/22/20 06:55 Magnesium 1.2 mg/dL (1.6-2.6) L 05/22/20 06:55 Albumin 3.1 g/dL (3.4-4.8) L 05/22/20 06:55 Nephrology AP PN - Plan ASSESSMENT: Hyponatremia: Due to beer potomania with poor solute intake as well as volume depletion with appropriate anti-diuretic hormone secretion. Down from 129 to 128. Admitted to drinking a lot of free water Hypokalemia: Due to poor oral intake and hypomagnesemia Hypomagnesemia: Severe. Due to poor oral intake. Repleted Epigastric pain: Due to acute pancreatitis and or acute gastritis. Acute on chronic pancreatitis. Presumed acute gastritis. Chronic alcohol abuse PCM PLAN Start free water restriction to 2000 per 24 hours. Continue potassium supplementation. [place] oral solute intake advised Continue ensure enlive. Recheck electrolytes in in the Am.
--- NOTE | 2020-05-23 14:13 | PDOC.HOSPP ---
- Subjective Encounter Date: 05/23/20 Encounter Time: 11:45 Subjective: Patient was seen this morning and noted her epigastric pain is controlled with her current pain medication regimen but can reach 9/10 at times. Pain is localized midline per patient. She noted she has not had a BM since Wednesday and is anxious to go home due to a recent change in her living situation. No other concerns voiced per patient. - Objective Vital Signs & Weight: Vital Signs (12 hours) Temp Pulse Resp BP BP BP Pulse Ox 05/23/20 12:31 99 F 73 20 127/75 127/75 98 05/23/20 08:14 70 116/68 05/23/20 08:10 116/68 97 05/23/20 08:00 98.9 F 70 16 116/68 97 05/23/20 04:00 99.2 F 78 16 121/70 98 Weight Admit Weight 90 lb 12.8 oz Weight 90 lb 12.8 oz I&O: 05/22/20 05/23/20 05/24/20 06:59 06:59 06:59 Intake Total 1467 1760 Balance 1467 1760 Result Diagrams: 05/23/20 05:51 05/23/20 05:51 Hospitalist ROS - Review of Systems Constitutional: denies: fever, sweats, weakness Respiratory: denies: cough Cardiovascular: denies: chest pain Gastrointestinal: reports: abdominal pain, constipation. denies: nausea, vomiting, diarrhea Neurological: denies: weakness - Medication Medications: Active Medications Generic Name Dose Route Start Last Admin Trade Name Freq PRN Reason Stop Dose Admin Amlodipine Besylate 5 mg 05/21/20 09:00 05/23/20 08:14 Amlodipine 5 Mg Tab PO 5 mg DAILY SUSANNA Administration Folic Acid 1 mg 05/21/20 09:00 05/23/20 08:14 Folic Acid 1 Mg Tab PO 1 mg DAILY SUSANNA Administration Iron/Minerals/Multivitamins 1 tab 05/21/20 09:00 05/23/20 08:14 Multivitamin W/ Minerals 1 Tab PO 1 tab DAILY SUSANNA Administration Magnesium Oxide 400 mg 05/22/20 09:00 05/23/20 08:14 Magnesium Oxide 400 Mg Tab PO 400 mg DAILY SUSANNA Administration Morphine Sulfate 2 mg 05/21/20 01:08 05/23/20 13:55 Morphine 2 Mg/Ml Vial SLOW IVP 2 mg Q2H PRN Administration Severe Pain (7-10) Ondansetron HCl 4 mg 05/21/20 01:48 05/23/20 05:32 Ondansetron Pf 4 Mg/2 Ml Vial IVP 4 mg Q6H PRN Administration Nausea/Vomiting Pantoprazole Sodium 40 mg 05/21/20 21:00 05/23/20 08:13 Pantoprazole 40 Mg Vial IVP 40 mg BID SUSANNA Administration Polyethylene Glycol 17 gm 05/23/20 09:00 05/23/20 08:13 Polyethylene Glycol 3350 17 Gm Packet PO 17 gm DAILY SUSANNA Administration Potassium Chloride 40 meq 05/22/20 17:00 05/23/20 08:13 Potassium Chloride 20 Meq Tab PO 40 meq BID-WM SUSANNA Administration Sodium Chloride 10 ml 05/21/20 09:00 05/23/20 08:14 Flush - Normal Saline 10 Ml Syringe IVF 10 ml Q12HR SUSANNA Administration Sodium Chloride 10 ml 05/21/20 11:30 05/21/20 19:48 Sodium Chloride 0.9% (Pf) 10 Ml Vial FS 10 ml PRN PRN Administration RECONSTITUTION Thiamine HCl 100 mg 05/22/20 09:00 05/23/20 08:14 Thiamine 100 Mg Tab PO 100 mg DAILY SUSANNA Administration Hospitalist Exam Vitals: Vital Signs (12 hours) Temp Pulse Resp BP BP BP Pulse Ox 05/23/20 12:31 99 F 73 20 127/75 127/75 98 05/23/20 08:14 70 116/68 05/23/20 08:10 116/68 97 05/23/20 08:00 98.9 F 70 16 116/68 97 05/23/20 04:00 99.2 F 78 16 121/70 98 Weight Admit Weight 90 lb 12.8 oz Weight 90 lb 12.8 oz General Appearance: NAD Eye: PERRL Eye - other findings: No jaundice noted ENT: normocephalic atraumatic Neck: supple Heart: RRR, no murmur, no gallops, no rubs Respiratory: CTAB, no wheezes, no rales, no ronchi Gastrointestinal: soft, non-distended, no guarding, no rigidity Gastrointestinal - other findings: tender to epigastric and LUQ region Psychiatric: A&O x 3 Hosp A/P - Plan Acute on chronic pancreatitis Code(s): K85.90 - ACUTE PANCREATITIS WITHOUT NECROSIS OR INFECTION, UNSP; K86.1 - OTHER CHRONIC PANCREATITIS Status: Acute (2) Hypokalemia Code(s): E87.6 - HYPOKALEMIA Status: Acute (3) Hyponatremia Code(s): E87.1 - HYPO-OSMOLALITY AND HYPONATREMIA Status: Acute (4) Unhealthy alcohol drinking behavior Code(s): Z78.9 - OTHER SPECIFIED HEALTH STATUS Status: Chronic (5) COPD (chronic obstructive pulmonary disease) Status: Chronic (6) HTN (hypertension) Code(s): I10 - ESSENTIAL (PRIMARY) HYPERTENSION Status: Chronic (7) Anxiety Code(s): F41.9 - ANXIETY DISORDER, UNSPECIFIED Status: Chronic Plan: Patient with chronic pancreatitis, unhealthy alcohol drinking behavior, former illicit drug abuse, COPD, HTN and anxiety presents for epigastric pain with associated nausea vomiting diarrhea. Imaging showed pseudocyst formation with peripancreatic stranding. No leukocytosis. EtOH 27. UA unremarkable. #Acute on chronic pancreatitis Alcohol induced Presented lipase 216. AST 104 and ALT 102, NL bilirubin. Likely related unhealthy alcohol intake. Will obtain right upper quadrant ultrasound.--------------> Post cholecystectomy changes extrahepatic duct measuring 1.4 cm. Changes consistent with chronic pancreatitis. Pseudocyst -IV fluids, analgesia, antiemetics. CT positive pseudocyst, No necrosis or abscess. recommendation follow-up 6 to 8 weeks repeat imaging. #Hypokalemia -Being replaced #Hyponatremia probably chronic wound secondary to alcohol Mild. Presented with sodium level 125. Improving with hydration -Follow renal recommendation. #Unhealthy alcohol drinking behavior Chronic. Drinks 6 beers per day. ASE protocol. #COPD Chronic, stable. #HTN amlodipine. 24th -Patient was complaining of new pain that was not like used to be with the pancreatitis issue. Pain is mostly in the epigastric area not in the lower quadrants. She is stating that she is quite familiar with alcohol induced pancreatitis related pain but this pain is much severe and worse and appears to be new. Because of this I have consulted GI for their input in addition to being recommended by the internal wholesaler. Ongoing aggressive hydration for her pancreatitis. Her lipase is trending down she is clinically better to start her on a diet. started on a regular diet this morning and she seems to be handling well without discomfort. Chronic hyponatremia secondary to alcohol use Hypokalemia and hypomagnesemia being supplemented. Appreciate nephrology help 05/23 Update Alcoholic pancreatitis---lipase is almost normalized - Epigastric pain is consistent with severe pancreatitis per GI consult. - Hyponatremia: Due to beer potomania---> encourage oral solute intake per nephrology--trial of salt substitute just for today. - Hypokalemia: Continue supplementation - Hypomagnesemia: Continue supplementation - Monitor electrolytes Constipation - Begin Miralax --Senokot and Dulcolax per rectum suppository as needed Possible pancreatic pseudocyst - located in the head of the pancreas. - Possibly repeat CT in 6-8 weeks. Once her electrolytes little bit better plan to discharge her tomorrow morning if okay with GI and internal wholesaler Care discussed with the student and agree with his plan for today.
--- NOTE | 2020-05-23 14:20 | PRG ---
DATE OF SERVICE: 05/23/2020 SUBJECTIVE: Ms. Lora still has epigastric abdominal pain, but this is much better than when she was first admitted. She has no nausea or vomiting. She is tolerating a solid diet pretty well. She has no diarrhea or constipation. OBJECTIVE: VITAL SIGNS: Temperature 99.0, pulse 73, and blood pressure 127/75. GENERAL: She is in no acute distress. Alert and oriented x3. LUNGS: Clear to auscultation bilaterally. HEART: Regular rate and rhythm without murmur. ABDOMEN: Soft, nontender, nondistended. Bowel sounds are present. EXTREMITIES: No lower extremity edema. IMPRESSION: 1. Acute on chronic pancreatitis. She is clinically improving, but still has underlying pain. She is tolerating a solid low-fat diet, and I would not change the diet at this point. 2. Hyponatremia likely secondary to beer potomania. 3. Alcohol abuse. She states she is wanting to quit. RECOMMENDATIONS: 1. Monitor for alcohol withdrawal. Pain control per the primary service. 2. She is tolerating a low-fat diet and has been fluid resuscitated. Treatment of the hyponatremia is being followed by Nephrology. 3. At this point, primary treatment from a GI perspective is avoidance of future alcohol use. She can continue the current diet, and I will sign off for now. Follow up as needed. 4. She should follow up in the GI clinic and to reassess the pancreatic pseudocyst and associated symptoms, and we can decide in the office if future imaging is required to follow up on that. Job ID: [id number]
[2020-05-23] MEDS ORDERED: Bisacodyl 10 MG SUPP PR PRN (15:08)
[2020-05-23] MEDS: Sodium Chloride 1 GM TAB PO SCH (20:15)
[2020-05-23] MEDS: Senokot S 8.6-50 MG TAB PO SCH (20:15)
[2020-05-23] MEDS: traMADol HCl 50 MG TAB PO PRN (20:17)
[2020-05-24] MEDS: Morphine 2 MG/ML VIAL SLOW IVP PRN ×4 (05:41→21:10)
[2020-05-24 07:21] LABS: #Basophils 0.1 thou/uL (0.0-0.2); #Eosinphils 0.3 thou/uL (0.0-0.7); #Lymphocytes 2.4 thou/uL (1.20-3.40); #Monocytes 0.6 thou/uL (0.11-0.59); #Neutrophils 3.2 thou/uL (1.40-6.50); %Basophils 0.8 % (0.0-1.0); %Eosinophils 4.2 % (0.0-10.0); %Lymphocytes 36.7 % (21.0-51.0); %Monocytes 9.4 % (0.0-10.0); Hemoglobin 11.6 g/dL (12.0-16.0); Mean Corpuscular HGB CONC 34.7 g/dL (32.0-36.0); Mean Corpuscular Hemoglobin 36.5 pg (27.0-31.0); Mean Platelet Volume 9.5 fL (7.4-10.4); Platelet Count 129 thou/uL (130-400); RBC Distribution Width 11.5 % (11.5-14.5); Red Blood Cell (RBC) Count 3.18 mill/uL (4.20-5.40); White Blood Cell (WBC) Count 6.6 thou/uL (4.8-10.8)
[2020-05-24 07:33] LABS: Anion Gap 9 mmol/L (10-20); BUN (Urea Nitrogen) 6 mg/dL (9.8-20.1); Calc. Creatinine Clearance 64 mL/min (70-130); Calcium 8.3 mg/dL (7.8-10.44); Carbon Dioxide 27 mmol/L (23-31); Chloride 95 mmol/L (98-107); Glucose 133 mg/dL (80-115); Potassium 4.2 mmol/L (3.5-5.1); Sodium 127 mmol/L (136-145)
[2020-05-24] MEDS: Sodium Chloride 1 GM TAB PO SCH (08:26)
[2020-05-24] MEDS: Multivitamin W/ Minerals 1 TAB PO SCH (08:26)
[2020-05-24] MEDS: Thiamine 100 MG TAB PO SCH (08:26)
[2020-05-24] MEDS: Magnesium Oxide 400 MG TAB PO SCH (08:26)
[2020-05-24] MEDS: Senokot S 8.6-50 MG TAB PO SCH ×2 (08:26→20:55)
[2020-05-24] MEDS: Potassium Chloride 20 MEQ TAB PO SCH (08:26)
[2020-05-24] MEDS: Pantoprazole 40 MG VIAL IVP SCH ×2 (08:27→20:56)
[2020-05-24] MEDS: Folic Acid 1 MG TAB PO SCH (08:27)
[2020-05-24] MEDS: traMADol HCl 50 MG TAB PO PRN ×2 (08:27→15:31)
[2020-05-24] MEDS: Amlodipine 5 MG TAB PO SCH (08:27)
[2020-05-24] MEDS: Polyethylene Glycol 3350 17 GM Packet PO SCH (08:27)
--- NOTE | 2020-05-24 10:07 | PDOC.HOSPP ---
- Subjective Encounter Date: 05/24/20 Encounter Time: 10:00 Subjective: pt seen in the morning. she is tolerating the diet and no acute abd discomfort. - Objective Vital Signs & Weight: Vital Signs (12 hours) Temp Pulse Resp BP BP Pulse Ox 05/24/20 08:27 151/81 H 05/24/20 07:51 151/81 H 05/24/20 07:34 75 20 151/81 H 96 05/24/20 05:30 99.1 F 72 17 124/69 95 05/24/20 05:00 124/69 Weight Admit Weight 90 lb 12.8 oz Weight 90 lb 12.8 oz I&O: 05/23/20 05/24/20 05/25/20 06:59 06:59 06:59 Intake Total 1760 1840 Balance 1760 1840 Result Diagrams: 05/25/20 06:22 05/25/20 06:22 Hospitalist ROS - Medication Medications: Active Medications Generic Name Dose Route Start Last Admin Trade Name Freq PRN Reason Stop Dose Admin Amlodipine Besylate 5 mg 05/21/20 09:00 05/24/20 08:27 Amlodipine 5 Mg Tab PO 5 mg DAILY SUSANNA Administration Folic Acid 1 mg 05/21/20 09:00 05/24/20 08:27 Folic Acid 1 Mg Tab PO 1 mg DAILY SUSANNA Administration Iron/Minerals/Multivitamins 1 tab 05/21/20 09:00 05/24/20 08:26 Multivitamin W/ Minerals 1 Tab PO 1 tab DAILY SUSANNA Administration Magnesium Oxide 400 mg 05/22/20 09:00 05/24/20 08:26 Magnesium Oxide 400 Mg Tab PO 400 mg DAILY SUSANNA Administration Morphine Sulfate 2 mg 05/21/20 01:08 05/24/20 05:41 Morphine 2 Mg/Ml Vial SLOW IVP 2 mg Q2H PRN Administration Severe Pain (7-10) Ondansetron HCl 4 mg 05/21/20 01:48 05/23/20 05:32 Ondansetron Pf 4 Mg/2 Ml Vial IVP 4 mg Q6H PRN Administration Nausea/Vomiting Pantoprazole Sodium 40 mg 05/21/20 21:00 05/24/20 08:27 Pantoprazole 40 Mg Vial IVP 40 mg BID SUSANNA Administration Polyethylene Glycol 17 gm 05/23/20 09:00 05/24/20 08:27 Polyethylene Glycol 3350 17 Gm Packet PO 17 gm DAILY SUSANNA Administration Potassium Chloride 40 meq 05/22/20 17:00 05/24/20 08:26 Potassium Chloride 20 Meq Tab PO 40 meq BID-WM SUSANNA Administration Senna/Docusate Sodium 2 tab 05/23/20 21:00 05/24/20 08:26 Senokot S 8.6-50 Mg Tab PO 2 tab BID SUSANNA Administration Sodium Chloride 10 ml 05/21/20 09:00 05/24/20 08:38 Flush - Normal Saline 10 Ml Syringe IVF Not Given Q12HR SUSANNA Sodium Chloride 10 ml 05/21/20 11:30 05/21/20 19:48 Sodium Chloride 0.9% (Pf) 10 Ml Vial FS 10 ml PRN PRN Administration RECONSTITUTION Sodium Chloride 2 gm 05/23/20 21:00 05/24/20 08:26 Sodium Chloride 1 Gm Tab PO 05/24/20 14:00 2 gm TID SUSANNA Administration Thiamine HCl 100 mg 05/22/20 09:00 05/24/20 08:26 Thiamine 100 Mg Tab PO 100 mg DAILY SUSANNA Administration Tramadol HCl 50 mg 05/21/20 02:37 05/24/20 08:27 Tramadol Hcl 50 Mg Tab PO 50 mg Q6H PRN Administration Moderate Pain (4-6) Hospitalist Exam Vitals: Vital Signs (12 hours) Temp Pulse Resp BP BP Pulse Ox 05/24/20 08:27 151/81 H 05/24/20 07:51 151/81 H 05/24/20 07:34 75 20 151/81 H 96 05/24/20 05:30 99.1 F 72 17 124/69 95 05/24/20 05:00 124/69 Weight Admit Weight 90 lb 12.8 oz Weight 90 lb 12.8 oz General Appearance: NAD, awake alert Eye: PERRL ENT: normocephalic atraumatic Neck: supple Heart: RRR Respiratory: CTAB, normal chest expansion Gastrointestinal: soft, normal bowel sounds Psychiatric: normal affect, normal behavior, A&O x 3 Hosp A/P - Plan Acute on chronic pancreatitis Code(s): K85.90 - ACUTE PANCREATITIS WITHOUT NECROSIS OR INFECTION, UNSP; K86.1 - OTHER CHRONIC PANCREATITIS Status: Acute (2) Hypokalemia Code(s): E87.6 - HYPOKALEMIA Status: Acute (3) Hyponatremia Code(s): E87.1 - HYPO-OSMOLALITY AND HYPONATREMIA Status: Acute (4) Unhealthy alcohol drinking behavior Code(s): Z78.9 - OTHER SPECIFIED HEALTH STATUS Status: Chronic (5) COPD (chronic obstructive pulmonary disease) Status: Chronic (6) HTN (hypertension) Code(s): I10 - ESSENTIAL (PRIMARY) HYPERTENSION Status: Chronic (7) Anxiety Code(s): F41.9 - ANXIETY DISORDER, UNSPECIFIED Status: Chronic Plan: Patient with chronic pancreatitis, unhealthy alcohol drinking behavior, former illicit drug abuse, COPD, HTN and anxiety presents for epigastric pain with associated nausea vomiting diarrhea. Imaging showed pseudocyst formation with peripancreatic stranding. No leukocytosis. EtOH 27. UA unremarkable. #Acute on chronic pancreatitis Alcohol induced Presented lipase 216. AST 104 and ALT 102, NL bilirubin. Likely related unhealthy alcohol intake. Will obtain right upper quadrant ultrasound.--------------> Post cholecystectomy changes extrahepatic duct measuring 1.4 cm. Changes consistent with chronic pancreatitis. Pseudocyst -IV fluids, analgesia, antiemetics. CT positive pseudocyst, No necrosis or abscess. recommendation follow-up 6 to 8 weeks repeat imaging. #Hypokalemia -Being replaced #Hyponatremia probably chronic wound secondary to alcohol Mild. Presented with sodium level 125. Improving with hydration -Follow renal recommendation. #Unhealthy alcohol drinking behavior Chronic. Drinks 6 beers per day. ASE protocol. #COPD Chronic, stable. #HTN amlodipine. 24th -Patient was complaining of new pain that was not like used to be with the pancreatitis issue. Pain is mostly in the epigastric area not in the lower quadrants. She is stating that she is quite familiar with alcohol induced pancreatitis related pain but this pain is much severe and worse and appears to be new. Because of this I have consulted GI for their input in addition to being recommended by the factory clerk. Ongoing aggressive hydration for her pancreatitis. Her lipase is trending down she is clinically better to start her on a diet. started on a regular diet this morning and she seems to be handling well without discomfort. Chronic hyponatremia secondary to alcohol use Hypokalemia and hypomagnesemia being supplemented. Appreciate nephrology help 05/23 Update Alcoholic pancreatitis---lipase is almost normalized - Epigastric pain is consistent with severe pancreatitis per GI consult. - Hyponatremia: Due to beer potomania---> encourage oral solute intake per nephrology--trial of salt substitute just for today. - Hypokalemia: Continue supplementation - Hypomagnesemia: Continue supplementation - Monitor electrolytes Constipation - Begin Miralax --Senokot and Dulcolax per rectum suppository as needed Possible pancreatic pseudocyst - located in the head of the pancreas. - Possibly repeat CT in 6-8 weeks. Once her electrolytes little bit better plan to discharge her tomorrow morning if okay with GI and factory clerk Care discussed with the student and agree with his plan for today.
--- NOTE | 2020-05-24 11:14 | PDOC.NEPPN ---
- Subjective Encounter Date: 05/24/20 Subjective: Feeling better. No fever or vomiting. - Objective Vital Signs & Weight: Vital Signs (12 hours) Temp Pulse Resp BP BP Pulse Ox 05/24/20 08:27 151/81 H 05/24/20 08:00 97 05/24/20 07:51 151/81 H 05/24/20 07:34 75 20 151/81 H 96 05/24/20 05:30 99.1 F 72 17 124/69 95 05/24/20 05:00 124/69 Weight Admit Weight 90 lb 12.8 oz Weight 90 lb 12.8 oz I&O: 05/23/20 05/24/20 05/25/20 06:59 06:59 06:59 Intake Total 1760 1840 Balance 1760 1840 Result Diagrams: 05/24/20 06:43 05/24/20 06:43 Nephrology ROS - Medication Medications: Active Medications Generic Name Dose Route Start Last Admin Trade Name Freq PRN Reason Stop Dose Admin Amlodipine Besylate 5 mg 05/21/20 09:00 05/24/20 08:27 Amlodipine 5 Mg Tab PO 5 mg DAILY SUSANNA Administration Folic Acid 1 mg 05/21/20 09:00 05/24/20 08:27 Folic Acid 1 Mg Tab PO 1 mg DAILY SUSANNA Administration Iron/Minerals/Multivitamins 1 tab 05/21/20 09:00 05/24/20 08:26 Multivitamin W/ Minerals 1 Tab PO 1 tab DAILY SUSANNA Administration Magnesium Oxide 400 mg 05/22/20 09:00 05/24/20 08:26 Magnesium Oxide 400 Mg Tab PO 400 mg DAILY SUSANNA Administration Morphine Sulfate 2 mg 05/21/20 01:08 05/24/20 05:41 Morphine 2 Mg/Ml Vial SLOW IVP 2 mg Q2H PRN Administration Severe Pain (7-10) Ondansetron HCl 4 mg 05/21/20 01:48 05/23/20 05:32 Ondansetron Pf 4 Mg/2 Ml Vial IVP 4 mg Q6H PRN Administration Nausea/Vomiting Pantoprazole Sodium 40 mg 05/21/20 21:00 05/24/20 08:27 Pantoprazole 40 Mg Vial IVP 40 mg BID SUSANNA Administration Polyethylene Glycol 17 gm 05/23/20 09:00 05/24/20 08:27 Polyethylene Glycol 3350 17 Gm Packet PO 17 gm DAILY SUSANNA Administration Potassium Chloride 40 meq 05/22/20 17:00 05/24/20 08:26 Potassium Chloride 20 Meq Tab PO 40 meq BID-WM SUSANNA Administration Senna/Docusate Sodium 2 tab 05/23/20 21:00 05/24/20 08:26 Senokot S 8.6-50 Mg Tab PO 2 tab BID SUSANNA Administration Sodium Chloride 10 ml 05/21/20 09:00 05/24/20 08:38 Flush - Normal Saline 10 Ml Syringe IVF Not Given Q12HR SUSANNA Sodium Chloride 10 ml 05/21/20 11:30 05/21/20 19:48 Sodium Chloride 0.9% (Pf) 10 Ml Vial FS 10 ml PRN PRN Administration RECONSTITUTION Sodium Chloride 2 gm 05/23/20 21:00 05/24/20 08:26 Sodium Chloride 1 Gm Tab PO 05/24/20 14:00 2 gm TID SUSANNA Administration Thiamine HCl 100 mg 05/22/20 09:00 05/24/20 08:26 Thiamine 100 Mg Tab PO 100 mg DAILY SUSANNA Administration Tramadol HCl 50 mg 05/21/20 02:37 05/24/20 08:27 Tramadol Hcl 50 Mg Tab PO 50 mg Q6H PRN Administration Moderate Pain (4-6) - Exam General Appearance: awake alert Eye: anicteric sclera ENT: normocephalic atraumatic Neck: supple, symmetric Respiratory: no wheezes, no ronchi Respiratory - other findings: fair air entry bilaterally Cardiovascular: RRR Gastrointestinal: soft, non-distended, normal bowel sounds, tender to palpation Extremities: no edema Neurological: CN's grossly intact PSYCH: A&O x 3 Nephrology Results - Labs Result Diagrams: 05/24/20 06:43 05/24/20 06:43 Lab results: WBC 6.6 thou/uL (4.8-10.8) 05/24/20 06:43 Hgb 11.6 g/dL (12.0-16.0) L 05/24/20 06:43 Hct 33.4 % (36.0-47.0) L 05/24/20 06:43 MCV 105.0 fL (78.0-98.0) H 05/24/20 06:43 Plt Count 129 thou/uL (130-400) L 05/24/20 06:43 Neutrophils % 49.0 % (42.0-75.0) 05/24/20 06:43 Sodium 127 mmol/L (136-145) L 05/24/20 06:43 Potassium 4.2 mmol/L (3.5-5.1) 05/24/20 06:43 Chloride 95 mmol/L (98-107) L 05/24/20 06:43 Carbon Dioxide 27 mmol/L (23-31) 05/24/20 06:43 BUN 6 mg/dL (9.8-20.1) L 05/24/20 06:43 Creatinine 0.59 mg/dL (0.6-1.1) L 05/24/20 06:43 Glucose 133 mg/dL (80-115) H 05/24/20 06:43 Calcium 8.3 mg/dL (7.8-10.44) 05/24/20 06:43 Total Bilirubin 0.6 mg/dL (0.2-1.2) 05/21/20 02:04 AST 90 U/L (5-34) H 05/21/20 02:04 ALT 63 U/L (8-55) H 05/21/20 02:04 Alkaline Phosphatase 95 U/L (40-110) 05/21/20 02:04 Serum Total Protein 6.7 g/dL (5.8-8.1) 05/21/20 02:04 Albumin 3.1 g/dL (3.4-4.8) L 05/22/20 06:55 Lipase 24 U/L (8-78) 05/22/20 06:55 Urine Ketones Negative mg/dL (Negative) 05/20/20 21:01 Urine Blood Negative (Negative) 05/20/20 21:01 Urine Nitrite Negative (Negative) 05/20/20 21:01 Ur Leukocyte Esterase Negative Gema/uL (Negative) 05/20/20 21:01 Sodium 127 mmol/L (136-145) L 05/24/20 06:43 Potassium 4.2 mmol/L (3.5-5.1) 05/24/20 06:43 Chloride 95 mmol/L (98-107) L 05/24/20 06:43 Carbon Dioxide 27 mmol/L (23-31) 05/24/20 06:43 Anion Gap 9 mmol/L (10-20) L 05/24/20 06:43 BUN 6 mg/dL (9.8-20.1) L 05/24/20 06:43 Creatinine 0.59 mg/dL (0.6-1.1) L 05/24/20 06:43 Glucose 133 mg/dL (80-115) H 05/24/20 06:43 Calcium 8.3 mg/dL (7.8-10.44) 05/24/20 06:43 Phosphorus 2.9 mg/dL (2.3-4.7) 05/22/20 06:55 Magnesium 1.2 mg/dL (1.6-2.6) L 05/22/20 06:55 Albumin 3.1 g/dL (3.4-4.8) L 05/22/20 06:55 Nephrology AP PN - Plan ASSESSMENT: Hyponatremia: Due to beer potomania with poor solute intake as well as volume depletion with appropriate anti-diuretic hormone secretion. Down further to 127 even with salt tablet. Hypokalemia: Due to poor oral intake and hypomagnesemia Hypomagnesemia: Severe. Due to poor oral intake. Repleted Epigastric pain: Due to acute pancreatitis and or acute gastritis. Acute on chronic pancreatitis. Presumed acute gastritis. Chronic alcohol abuse PCM PLAN free water restriction to 1000 per 24 hours. Continue salt tablets. get repeat urine and plasma osmolality Decrease potassium supplementation to 40 daily Valentine oral solute intake advised Continue ensure enlive. Recheck electrolytes in in the Am.
--- NOTE | 2020-05-24 14:42 | PDOC.HOSPP ---
- Subjective Encounter Date: 05/24/20 Encounter Time: 09:55 Subjective: Patient is much more cooperative today. She is alert oriented. It appears Dr. ANTOINE has visited her and we are going to follow with osmolality and strict fluid restrictions for her. - Objective Vital Signs & Weight: Vital Signs (12 hours) Temp Pulse Resp BP BP Pulse Ox 05/24/20 12:00 122/76 05/24/20 08:27 151/81 H 05/24/20 08:00 97 05/24/20 07:51 151/81 H 05/24/20 07:34 75 20 151/81 H 96 05/24/20 05:30 99.1 F 72 17 124/69 95 05/24/20 05:00 124/69 Weight Admit Weight 90 lb 12.8 oz Weight 90 lb 12.8 oz I&O: 05/23/20 05/24/20 05/25/20 06:59 06:59 06:59 Intake Total 1760 1840 Balance 1760 1840 Result Diagrams: 05/24/20 06:43 05/24/20 06:43 Hospitalist ROS - Medication Medications: Active Medications Generic Name Dose Route Start Last Admin Trade Name Freq PRN Reason Stop Dose Admin Amlodipine Besylate 5 mg 05/21/20 09:00 05/24/20 08:27 Amlodipine 5 Mg Tab PO 5 mg DAILY SUSANNA Administration Folic Acid 1 mg 05/21/20 09:00 05/24/20 08:27 Folic Acid 1 Mg Tab PO 1 mg DAILY SUSANNA Administration Iron/Minerals/Multivitamins 1 tab 05/21/20 09:00 05/24/20 08:26 Multivitamin W/ Minerals 1 Tab PO 1 tab DAILY SUSANNA Administration Magnesium Oxide 400 mg 05/22/20 09:00 05/24/20 08:26 Magnesium Oxide 400 Mg Tab PO 400 mg DAILY SUSANNA Administration Morphine Sulfate 2 mg 05/21/20 01:08 05/24/20 13:55 Morphine 2 Mg/Ml Vial SLOW IVP 2 mg Q2H PRN Administration Severe Pain (7-10) Ondansetron HCl 4 mg 05/21/20 01:48 05/23/20 05:32 Ondansetron Pf 4 Mg/2 Ml Vial IVP 4 mg Q6H PRN Administration Nausea/Vomiting Pantoprazole Sodium 40 mg 05/21/20 21:00 05/24/20 08:27 Pantoprazole 40 Mg Vial IVP 40 mg BID SUSANNA Administration Polyethylene Glycol 17 gm 05/23/20 09:00 05/24/20 08:27 Polyethylene Glycol 3350 17 Gm Packet PO 17 gm DAILY SUSANNA Administration Senna/Docusate Sodium 2 tab 05/23/20 21:00 05/24/20 08:26 Senokot S 8.6-50 Mg Tab PO 2 tab BID SUSANNA Administration Sodium Chloride 10 ml 05/21/20 09:00 05/24/20 08:38 Flush - Normal Saline 10 Ml Syringe IVF Not Given Q12HR SUSANNA Sodium Chloride 10 ml 05/21/20 11:30 05/21/20 19:48 Sodium Chloride 0.9% (Pf) 10 Ml Vial FS 10 ml PRN PRN Administration RECONSTITUTION Thiamine HCl 100 mg 05/22/20 09:00 05/24/20 08:26 Thiamine 100 Mg Tab PO 100 mg DAILY SUSANNA Administration Tramadol HCl 50 mg 05/21/20 02:37 05/24/20 08:27 Tramadol Hcl 50 Mg Tab PO 50 mg Q6H PRN Administration Moderate Pain (4-6) Hospitalist Exam Vitals: Vital Signs (12 hours) Temp Pulse Resp BP BP Pulse Ox 05/24/20 12:00 122/76 05/24/20 08:27 151/81 H 05/24/20 08:00 97 05/24/20 07:51 151/81 H 05/24/20 07:34 75 20 151/81 H 96 05/24/20 05:30 99.1 F 72 17 124/69 95 05/24/20 05:00 124/69 Weight Admit Weight 90 lb 12.8 oz Weight 90 lb 12.8 oz General Appearance: NAD, awake alert Eye: PERRL ENT: normocephalic atraumatic Neck: supple Heart: RRR, normal peripheral pulses Respiratory: CTAB, normal chest expansion Gastrointestinal: soft, normal bowel sounds Neurological: no focal deficits Psychiatric: A&O x 3 Hosp A/P - Plan Acute on chronic pancreatitis Code(s): K85.90 - ACUTE PANCREATITIS WITHOUT NECROSIS OR INFECTION, UNSP; K86.1 - OTHER CHRONIC PANCREATITIS Status: Acute (2) Hypokalemia Code(s): E87.6 - HYPOKALEMIA Status: Acute (3) Hyponatremia Code(s): E87.1 - HYPO-OSMOLALITY AND HYPONATREMIA Status: Acute (4) Unhealthy alcohol drinking behavior Code(s): Z78.9 - OTHER SPECIFIED HEALTH STATUS Status: Chronic (5) COPD (chronic obstructive pulmonary disease) Status: Chronic (6) HTN (hypertension) Code(s): I10 - ESSENTIAL (PRIMARY) HYPERTENSION Status: Chronic (7) Anxiety Code(s): F41.9 - ANXIETY DISORDER, UNSPECIFIED Status: Chronic Plan: #Acute on chronic pancreatitis Alcohol induced Presented lipase 216. AST 104 and ALT 102, NL bilirubin. Likely related unhealthy alcohol intake. Will obtain right upper quadrant ultrasound.--------------> Post cholecystectomy changes extrahepatic duct measuring 1.4 cm. Changes consistent with chronic pancreatitis. Pseudocyst -IV fluids, analgesia, antiemetics. CT positive pseudocyst, No necrosis or abscess. recommendation follow-up 6 to 8 weeks repeat imaging. #Unhealthy alcohol drinking behavior Chronic. Drinks 6 beers per day. ASE protocol. #COPD Chronic, stable. #HTN amlodipine. 05/23 Update Alcoholic pancreatitis---lipase is almost normalized - Epigastric pain is consistent with severe pancreatitis per GI consult. - Hyponatremia: Due to beer potomania---> encourage oral solute intake per nephrology--trial of salt substitute just for today. - Hypokalemia: Continue supplementation - Hypomagnesemia: Continue supplementation - Monitor electrolytes Constipation - Begin Miralax --Senokot and Dulcolax per rectum suppository as needed Possible pancreatic pseudocyst - located in the head of the pancreas. - Possibly repeat CT in 6-8 weeks. -She needs follow-up with the GI clinic -Follow-up on urine and serum osmolality Fluid restriction and salt tablet. Follow-up on electrolytes. It is very likely her sodium is at the new baseline with ongoing alcohol abuse. -Did not exhibit any withdrawal symptoms are altered sensorium. If it is closer to [address] ANTOINE, possible discharge tomorrow.
[2020-05-25] MEDS: Morphine 2 MG/ML VIAL SLOW IVP PRN ×2 (05:47→10:19)
[2020-05-25 06:42] LABS: #Basophils 0.1 thou/uL (0.0-0.2); #Eosinphils 0.3 thou/uL (0.0-0.7); #Lymphocytes 1.7 thou/uL (1.20-3.40); #Monocytes 0.5 thou/uL (0.11-0.59); #Neutrophils 3.6 thou/uL (1.40-6.50); %Basophils 0.8 % (0.0-1.0); %Eosinophils 4.9 % (0.0-10.0); %Lymphocytes 27.2 % (21.0-51.0); Hemoglobin 11.6 g/dL (12.0-16.0); Mean Corpuscular HGB CONC 34.8 g/dL (32.0-36.0); Mean Corpuscular Hemoglobin 35.8 pg (27.0-31.0); Mean Platelet Volume 9.4 fL (7.4-10.4); Platelet Count 149 thou/uL (130-400); RBC Distribution Width 11.4 % (11.5-14.5); Red Blood Cell (RBC) Count 3.23 mill/uL (4.20-5.40); White Blood Cell (WBC) Count 6.1 thou/uL (4.8-10.8)
[2020-05-25 07:14] LABS: Anion Gap 16 mmol/L (10-20); BUN (Urea Nitrogen) 5 mg/dL (9.8-20.1); Calc. Creatinine Clearance 73 mL/min (70-130); Calcium 8.6 mg/dL (7.8-10.44); Carbon Dioxide 22 mmol/L (23-31); Chloride 94 mmol/L (98-107); Glucose 144 mg/dL (80-115); Magnesium 1.4 mg/dL (1.6-2.6); Potassium 3.8 mmol/L (3.5-5.1); Sodium 128 mmol/L (136-145)
[2020-05-25 07:52] VITALS: BP 119/70; TEMP 98.4
[2020-05-25] MEDS: traMADol HCl 50 MG TAB PO PRN (08:46)
[2020-05-25] MEDS: Polyethylene Glycol 3350 17 GM Packet PO SCH (08:46)
[2020-05-25] MEDS: Senokot S 8.6-50 MG TAB PO SCH (08:47)
[2020-05-25] MEDS: Folic Acid 1 MG TAB PO SCH (08:47)
[2020-05-25] MEDS: Magnesium Oxide 400 MG TAB PO SCH (08:47)
[2020-05-25] MEDS: Amlodipine 5 MG TAB PO SCH (08:47)
[2020-05-25] MEDS: Pantoprazole 40 MG VIAL IVP SCH (08:47)
[2020-05-25] MEDS: Multivitamin W/ Minerals 1 TAB PO SCH (08:47)
[2020-05-25] MEDS: Thiamine 100 MG TAB PO SCH (08:48)
[2020-05-25] MEDS ORDERED: Sodium Chloride 1 GM TAB PO SCH (09:00)
[2020-05-25] MEDS ORDERED: Magnesium Sulfate 4 GM in Sodium Chloride 0.9% 250 ML 250 ML IVPB SCH (09:00)
[2020-05-25] MEDS ORDERED: Potassium Chloride 20 MEQ TAB PO SCH (09:00)
--- NOTE | 2020-05-25 11:00 | PDOC.NEPPN ---
- Subjective Encounter Date: 05/25/20 Subjective: Seen . No new problem. - Objective Vital Signs & Weight: Vital Signs (12 hours) Temp Pulse Resp BP BP BP Pulse Ox 05/25/20 08:47 65 119/70 05/25/20 07:52 98.4 F 65 20 119/70 97 05/25/20 05:30 98.7 F 79 17 127/68 97 Weight Admit Weight 90 lb 12.8 oz Weight 90 lb 12.8 oz I&O: 05/24/20 05/25/20 05/26/20 06:59 06:59 06:59 Intake Total 1840 430 Balance 1840 430 Result Diagrams: 05/25/20 06:22 05/25/20 06:22 Nephrology ROS - Medication Medications: Active Medications Generic Name Dose Route Start Last Admin Trade Name Freq PRN Reason Stop Dose Admin Amlodipine Besylate 5 mg 05/21/20 09:00 05/25/20 08:47 Amlodipine 5 Mg Tab PO 5 mg DAILY SUSANNA Administration Folic Acid 1 mg 05/21/20 09:00 05/25/20 08:47 Folic Acid 1 Mg Tab PO 1 mg DAILY SUSANNA Administration Magnesium Sulfate 4 gm/ Sodium 258 mls @ 86 mls/hr 05/25/20 09:00 05/25/20 09:24 Chloride IVPB 05/25/20 12:00 258 mls NOW SUSANNA Administration Iron/Minerals/Multivitamins 1 tab 05/21/20 09:00 05/25/20 08:47 Multivitamin W/ Minerals 1 Tab PO 1 tab DAILY SUSANNA Administration Magnesium Oxide 400 mg 05/22/20 09:00 05/25/20 08:47 Magnesium Oxide 400 Mg Tab PO 400 mg DAILY SUSANNA Administration Morphine Sulfate 2 mg 05/21/20 01:08 05/25/20 10:19 Morphine 2 Mg/Ml Vial SLOW IVP 2 mg Q2H PRN Administration Severe Pain (7-10) Ondansetron HCl 4 mg 05/21/20 01:48 05/23/20 05:32 Ondansetron Pf 4 Mg/2 Ml Vial IVP 4 mg Q6H PRN Administration Nausea/Vomiting Pantoprazole Sodium 40 mg 05/21/20 21:00 05/25/20 08:47 Pantoprazole 40 Mg Vial IVP 40 mg BID SUSANNA Administration Polyethylene Glycol 17 gm 05/23/20 09:00 05/25/20 08:46 Polyethylene Glycol 3350 17 Gm Packet PO 17 gm DAILY SUSANNA Administration Potassium Chloride 40 meq 05/25/20 09:00 05/25/20 08:47 Potassium Chloride 20 Meq Tab PO 40 meq DAILY SUSANNA Administration Senna/Docusate Sodium 2 tab 05/23/20 21:00 05/25/20 08:47 Senokot S 8.6-50 Mg Tab PO 2 tab BID SUSANNA Administration Sodium Chloride 10 ml 05/21/20 09:00 05/25/20 08:47 Flush - Normal Saline 10 Ml Syringe IVF 10 ml Q12HR SUSANNA Administration Sodium Chloride 10 ml 05/21/20 11:30 05/21/20 19:48 Sodium Chloride 0.9% (Pf) 10 Ml Vial FS 10 ml PRN PRN Administration RECONSTITUTION Sodium Chloride 1 gm 05/25/20 09:00 05/25/20 08:46 Sodium Chloride 1 Gm Tab PO 1 gm TID SUSANNA Administration Thiamine HCl 100 mg 05/22/20 09:00 05/25/20 08:48 Thiamine 100 Mg Tab PO 100 mg DAILY SUSANNA Administration Tramadol HCl 50 mg 05/21/20 02:37 05/25/20 08:46 Tramadol Hcl 50 Mg Tab PO 50 mg Q6H PRN Administration Moderate Pain (4-6) - Exam General Appearance: awake alert General - other findings: thin Eye: anicteric sclera ENT: normocephalic atraumatic Neck: symmetric Respiratory: no wheezes, no rales, no ronchi, normal chest expansion, no tach ypnea Cardiovascular: RRR Gastrointestinal: soft, non-distended, normal bowel sounds Extremities: no edema Neurological: CN's grossly intact, no focal deficits PSYCH: A&O x 3 Nephrology Results - Labs Result Diagrams: 05/25/20 06:22 05/25/20 06:22 Lab results: WBC 6.1 thou/uL (4.8-10.8) 05/25/20 06:22 Hgb 11.6 g/dL (12.0-16.0) L 05/25/20 06:22 Hct 33.3 % (36.0-47.0) L 05/25/20 06:22 MCV 103.0 fL (78.0-98.0) H 05/25/20 06:22 Plt Count 149 thou/uL (130-400) 05/25/20 06:22 Neutrophils % 59.0 % (42.0-75.0) 05/25/20 06:22 Sodium 128 mmol/L (136-145) L 05/25/20 06:22 Potassium 3.8 mmol/L (3.5-5.1) 05/25/20 06:22 Chloride 94 mmol/L (98-107) L 05/25/20 06:22 Carbon Dioxide 22 mmol/L (23-31) L 05/25/20 06:22 BUN 5 mg/dL (9.8-20.1) L 05/25/20 06:22 Creatinine 0.52 mg/dL (0.6-1.1) L 05/25/20 06:22 Glucose 144 mg/dL (80-115) H 05/25/20 06:22 Calcium 8.6 mg/dL (7.8-10.44) 05/25/20 06:22 Total Bilirubin 0.6 mg/dL (0.2-1.2) 05/21/20 02:04 AST 90 U/L (5-34) H 05/21/20 02:04 ALT 63 U/L (8-55) H 05/21/20 02:04 Alkaline Phosphatase 95 U/L (40-110) 05/21/20 02:04 Serum Total Protein 6.7 g/dL (5.8-8.1) 05/21/20 02:04 Albumin 3.1 g/dL (3.4-4.8) L 05/22/20 06:55 Lipase 24 U/L (8-78) 05/22/20 06:55 Urine Ketones Negative mg/dL (Negative) 05/20/20 21:01 Urine Blood Negative (Negative) 05/20/20 21:01 Urine Nitrite Negative (Negative) 05/20/20 21:01 Ur Leukocyte Esterase Negative Gema/uL (Negative) 05/20/20 21:01 Sodium 128 mmol/L (136-145) L 05/25/20 06:22 Potassium 3.8 mmol/L (3.5-5.1) 05/25/20 06:22 Chloride 94 mmol/L (98-107) L 05/25/20 06:22 Carbon Dioxide 22 mmol/L (23-31) L 05/25/20 06:22 Anion Gap 16 mmol/L (10-20) 05/25/20 06:22 BUN 5 mg/dL (9.8-20.1) L 05/25/20 06:22 Creatinine 0.52 mg/dL (0.6-1.1) L 05/25/20 06:22 Glucose 144 mg/dL (80-115) H 05/25/20 06:22 Calcium 8.6 mg/dL (7.8-10.44) 05/25/20 06:22 Phosphorus 2.9 mg/dL (2.3-4.7) 05/22/20 06:55 Magnesium 1.4 mg/dL (1.6-2.6) L 05/25/20 06:22 Albumin 3.1 g/dL (3.4-4.8) L 05/22/20 06:55 Nephrology AP PN - Plan ASSESSMENT: Hyponatremia: Due to beer potomania with poor solute intake as well as volume depletion with appropriate anti-diuretic hormone secretion. Up today to 128. Hypokalemia: Due to poor oral intake and hypomagnesemia Hypomagnesemia: Severe and recurrent. Epigastric pain: Due to acute pancreatitis and or acute gastritis. Acute on chronic pancreatitis. Presumed acute gastritis. Chronic alcohol abuse PCM PLAN Replete serum magnesium with 4 grams of magnesium sulphate free water restriction to 1000 per 24 hours. Continue salt tablets. Continue potassium supplementation to 40 daily [place] oral solute intake advised Continue ensure enlive. Can be discharged from nephrology point of view. Follow up in the office on 05/30/20 at 1100 am.
--- NOTE | 2020-05-26 20:01 | PDOC.DS.DS ---
Provider Date of Admission: 05/20/20 22:36 Date of Discharge: 05/26/20 Admitting Provider: Alfonzo Franklin MD Primary Care Physician: RESHMA Peng Course Hospital Course: Discharge Diagnoses: 1. Acute on chronic pancreatitis 2. Hyponatremia likely from alcoholism 3. Chronic alcoholism Brief HPI: This is a 60-year-old female with a past medical history of chronic pancreatitis, presented to the emergency room with acute onset abdominal pain in her epigastric area associated with nausea, vomiting and diarrhea. She drinks beers per day and her last drink was 1 day prior to admission. 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 Patient had a lipase of 260, sodium was 125, potassium 2.8, magnesium 1.1. AST was 104, ALT 72. CT demand showed chronic pancreatitis with development of a peripherally enhancing cystic collection in the pancreatic head suspicious for pseudocyst. An ultrasound showed no acute changes. The patient was admitted for an acute flareup of pancreatitis Hospital course: Acute on chronic pancreatitis: The patient was hydrated with IV fluids and kept n.p.o.. Her abdominal pain significantly improved with this and she tolerated a low-fat diet at the time of discharge. She states that she does not take Creon supplements currently. She was advised to try to stop drinking to prevent recurrent attacks. GI evaluated the patient recommended that she follow-up in the GI clinic in 6 to 8 weeks with a repeat CT scan of the abdomen. The patient states that she is not sure if she will follow up with them because she cannot afford to see multiple doctors. Advised her at the minimum to try to follow-up with her PCP. Hyponatremia/hypokalemia: Patient sodium improved to 128 at the time of discharge. Serum osmolarity 273 and urine osmolarity was 141. The patient was started on salt tablets by nephrology improvement. Her potassium was 3.8 on the day of discharge. The patient will follow up with Dr. ANTOINE this with a repeat BMP. Alcohol abuse: Continue thiamine and folate supplements Resuscitation Status: 05/21/20 01:56 Resuscitation Status Routine Co-Sign Provider: Resuscitation Status: FULL: Full Resuscitation Discussed with: patient Lab Results: 05/25/20 06:22 05/25/20 06:22 Abnormal Lab Results - Last 48 hrs 05/25/20 06:22: Sodium 128 L, Chloride 94 L, Carbon Dioxide 22 L, BUN 5 L, Creatinine 0.52 L, Magnesium 1.4 L 05/25/20 06:22: RBC 3.23 L, Hgb 11.6 L, Hct 33.3 L, MCV 103.0 H, MCH 35.8 H, RDW 11.4 L Vitals: Weight Admit Weight 90 lb 12.8 oz Weight 90 lb 12.8 oz Physical Exam: The patient was seen and examined on the day of discharge. General Appearance: NAD, awake alert General - other findings: cachectic and malnourished Eye: PERRL, anicteric sclera ENT: normocephalic atraumatic, no oropharyngeal lesions Neck: no JVD Respiratory: CTAB, no wheezes, no rales, no ronchi Cardiovascular: no murmur, no gallops, murmur present Gastrointestinal: soft Gastrointestinal - other findings: mild epigastric tenderness Extremities: no cyanosis, no clubbing, no edema Skin: normal turgor, no lesions, no rashes Neurological: cranial nerve grossly intact, normal sensation to touch, no focal deficits, no new deficit Musculoskeletal: normal tone, normal strength, no muscle wasting PSYCH: normal affect, normal behavior, A&O x 3 Plan Prescriptions: Potassium Chloride [K-Dur] 20 meq PO BID #60 tab Magnesium Oxide 400 mg PO BID #60 tab Pantoprazole Sodium [Protonix] 40 mg PO BID 30 Days #60 gran Sodium Chloride 1 gm PO TID #90 tab Home Medications: Medication Instructions Recorded Confirmed Type Amlodipine [Norvasc] 10 mg PO DAILY 11/12/19 05/21/20 History Folic Acid [Folvite] 1 mg PO DAILY 11/12/19 05/21/20 History Thiamine HCl [Vitamin B-1] 50 mg PO DAILY 05/21/20 05/21/20 History traMADol HCl [Tramadol HCl] 50 mg PO TID PRN 05/21/20 05/21/20 History Pantoprazole Sodium [Protonix] 40 mg PO BID 30 Days #60 05/23/20 Rx Magnesium Oxide 400 mg PO BID #60 tab 05/25/20 Rx Potassium Chloride [K-Dur] 20 meq PO BID #60 tab 05/25/20 Rx Sodium Chloride 1 gm PO TID #90 tab 05/25/20 Rx Allergies: Penicillins Allergy (Verified 05/21/20 05:38) Hives Discharge Instructions:: You were diagnosed with pancreatitis. You do have chronic pancreatitis. You have a possible pancreatic pseudocyst . Please have a repeat CT scan of your abdomen with and without contrast in 6-8 weeks to see if this has resolved. Continue your thiamine and folic acid supplements. Try to cut back on alcohol if you can. Please have your sodium level and magnesium level rechecked with Dr. Bonilla this . Take salt tablets three times daily and magnesium supplements daily. Activity:: Activity as Tolerated Nourishment:: Heart Healthy Diet Referrals: Leyla Grande FNP [Primary Care Provider] - 7 Days Thelma Bonilla MD [Active] - 05/30/20 11:00 am (HAVE LABS DRAWN on 05/29/20 ) Justin Ureña MD [Active] - (Follow in GI clinic with DR. Ureña for pancreas evaluation) Disposition: HOME Quality CORE MEASURES:: N/A
--- NOTE | 2020-05-29 00:52 | PQF ---
CLINICAL DOCUMENTATION CLARIFICATION FORM: Dear : Jesika Dela Cruz MD Date / Time: 05/29/2020 Please exercise your independent, professional judgment in responding to the clarification form. Clinical indicators are provided on the bottom of this form for your review Please check appropriate box(es): [ ] Protein Calorie Malnutrition: [ ] Mild [ ] Moderate [ ] Severe [ ] Other Malnutrition (please specify) [ ] Underweight without malnutrition [ ] Cachexia [ ] Other diagnosis (Please specify if any) [ ] Unable to determine In addition, please specify: Present on Admission (POA): [ ] Yes [ ] No [ ] Unable to determine Physician Signature: Date/Time: For continuity of documentation, please document condition throughout progress notes and discharge summary. Thank You. To be completed by CDI/Coding staff for physician review: Present Clinical Indicators - Signs / Symptoms / Labs Results and Location in Medical Record [x] Malnutrition Severe malnutrition in the context of chronic illness Registered dietitian on 05/22 [x] BMI of 15.5 Registered dietitian on 05/22 Two or More of the Following ASPEN Criteria: [ ] Unintentional Insufficient Energy Intake [x] Weight Loss Unintentional weight loss of 24% - Registered dietitian on 05/22 [x] Loss of Muscle Mass Wasting of the temples, pectoralis muscles & moderate wasting of buccal fat pads -Registered dietitian on 05/22 [ ] Loss of Subcutaneous Fat [x] Albumin-3.1, Calcium-7.2 Laboratory on 05/22 [x] Cachexia ED provider report on 05/20 [x] Underweight Registered dietitian on 05/22 Present Risk Factors Results and Location in Medical Record [x] Change in appetite / nausea / vomiting / diarrhea Registered dietitian on 05/22 [ ] Inability to consume adequate caloric intake [x] Chronic illness pancreatitis, ETOH abuse Registered dietitian on 05/22 [ ] Medication [ ] PEG tube [ ] Short gut syndrome Present Treatments Results and Location in Medical Record [x] Dietary consult Registered dietitian on 05/22 [x] Recommended ensure enlive BID Registered dietitian on 05/22 [ ] TPN / tube feedings [ ] Assistance with feeding [ ] Appetite stimulant - medication CDS/Email Producer Signature: KELLY Phone #: Date/Time: 05/29/2020 Moderate Malnutrition (in acute illness) ? Energy Intake: <75% of estimated energy requirement for > 7 days ? Weight Loss: 1-2%/1 week; 5%/ 1 month; 7.5%/3 months ? Other: mild body fat loss; mild muscle mass loss; mild fluid accumulation; Severe Malnutrition (in acute illness) ? Energy Intake: ? 50% of estimated energy requirement for ? 5 days ? Weight Loss: >2%/1 week; >5%/1 month; >7.5%/3 months ? Other: moderate body fat loss; moderate muscle mass loss; moderate- severe fluid accumulation; measurably reduced autocad draftsman strength Moderate Malnutrition (in chronic illness) ? Energy Intake: <75% of estimated energy requirement for ?1 month ? Weight Loss: 5%/1 month; 7.5%/3 months; 10%/6 months; 20%/1 year ? Other: mild body fat loss; mild muscle mass loss; mild fluid accumulation Severe Malnutrition (in chronic illness) ? Energy Intake: ?75% of estimated energy requirement for ?1 month ? Weight Loss: >5%/1 month; >7.5%/3 months; >10%/6 months; >20%/1 year ? Other: severe body fat loss; severe muscle mass loss; severe fluid accumulation; measurably reduced autocad draftsman strength This is a permanent part of the Medical Record MTDD
== END 2020-05-25 13:19 | disposition home or self-care (01) | DRG 439 ==
LOC: ERS 20:12 → ERHOLD 22:36 → T4-A 05-21 05:18
PROVIDERS: ADMIT Internal Medicine; ATTEND Internal Medicine
DX: K85.20 Alcohol induced acute pancreatitis without necrosis or infection (principal); R64 Cachexia; Z68.1 Body mass index [BMI] 19.9 or less, adult; E46 Unspecified protein-calorie malnutrition; K86.3 Pseudocyst of pancreas; E22.2 Syndrome of inappropriate secretion of antidiuretic hormone; F41.9 Anxiety disorder, unspecified; F17.210 Nicotine dependence, cigarettes, uncomplicated; E87.6 Hypokalemia; E83.42 Hypomagnesemia; F10.10 Alcohol abuse, uncomplicated; I10 Essential (primary) hypertension; J44.9 Chronic obstructive pulmonary disease, unspecified; K59.00 Constipation, unspecified; Z90.49 Acquired absence of other specified parts of digestive tract; Z98.51 Tubal ligation status; Z88.0 Allergy status to penicillin; Z86.711 Personal history of pulmonary embolism; Z79.899 Other long term (current) drug therapy; Z78.9 Other specified health status; Z20.822 Contact with and (suspected) exposure to COVID-19
CPT/HCPCS: 36415; 74177; 76705; 80048; 80053; 80061; 80306; 80307; 81003; 82040; 83690; 83735; 83930; 83935; 84100; 84300; 84443; 85025; 87635; 93005; 94760; 96365; C9113; J2270; J2405; J3411; J3475; J3490; J7042; J7050; Q9967; U0003; U0005

== ENCOUNTER 2020-06-05 04:34 | Emergency (ER) | payer SELFPAY ==
[2020-06-05] MEDS ORDERED: Morphine 4 MG/ML VIAL ONE (05:01)
[2020-06-05] MEDS ORDERED: Ondansetron PF 4 MG/2 ML Vial ONE (05:01)
[2020-06-05 05:12] LABS: #Basophils 0.1 thou/uL (0.0-0.2); #Eosinphils 0.4 thou/uL (0.0-0.7); #Lymphocytes 2.3 thou/uL (1.20-3.40); #Monocytes 0.6 thou/uL (0.11-0.59); #Neutrophils 6.6 thou/uL (1.40-6.50); %Basophils 0.7 % (0.0-1.0); %Eosinophils 4.4 % (0.0-10.0); %Monocytes 5.7 % (0.0-10.0); %Neutrophils 66.2 % (42.0-75.0); Mean Corpuscular HGB CONC 35.3 g/dL (32.0-36.0); Mean Corpuscular Hemoglobin 35.9 pg (27.0-31.0); Mean Platelet Volume 8.2 fL (7.4-10.4); Platelet Count 319 thou/uL (130-400); RBC Distribution Width 11.3 % (11.5-14.5); Red Blood Cell (RBC) Count 3.61 mill/uL (4.20-5.40); White Blood Cell (WBC) Count 9.9 thou/uL (4.8-10.8)
[2020-06-05 05:30] LABS: ALT (SGPT) 49 U/L (8-55); AST (SGOT) 47 U/L (5-34); Albumin 3.6 g/dL (3.4-4.8); Alkaline Phosphatase 155 U/L (40-110); Anion Gap 13 mmol/L (10-20); BUN (Urea Nitrogen) 5 mg/dL (9.8-20.1); Bilirubin, Total 0.4 mg/dL (0.2-1.2); Calc. Creatinine Clearance 0 mL/min (70-130); Carbon Dioxide 27 mmol/L (23-31); Chloride 92 mmol/L (98-107); Globulin 3.6 g/dL (2.4-3.5); Glucose 179 mg/dL (80-115); Lipase 208 U/L (8-78); Potassium 3.1 mmol/L (3.5-5.1); Protein, Total 7.2 g/dL (5.8-8.1); Sodium 129 mmol/L (136-145)
[2020-06-05] MEDS ORDERED: Potassium Chloride 20 MEQ TAB ONE (06:51)
== END 2020-06-05 07:02 | disposition home or self-care (01) ==
LOC: ERS 04:34
DX: K86.1 Other chronic pancreatitis (principal); E87.6 Hypokalemia; I10 Essential (primary) hypertension; J44.9 Chronic obstructive pulmonary disease, unspecified; F17.210 Nicotine dependence, cigarettes, uncomplicated; Z79.899 Other long term (current) drug therapy
CPT/HCPCS: 36415; 71045; 80053; 83690; 84484; 85025; 93005; 96374; 96375; J2270; J2405

== ENCOUNTER 2020-07-22 14:28 | Inpatient (IN) | payer SELFPAY ==
[2020-07-22 15:26] LABS: #Basophils 0.1 thou/uL (0.0-0.2); #Eosinphils 0.1 thou/uL (0.0-0.7); #Lymphocytes 1.5 thou/uL (1.20-3.40); #Monocytes 0.2 thou/uL (0.11-0.59); #Neutrophils 5.3 thou/uL (1.40-6.50); %Basophils 1.1 % (0.0-1.0); %Eosinophils 1.3 % (0.0-10.0); %Lymphocytes 21.1 % (21.0-51.0); %Monocytes 3.3 % (0.0-10.0); %Neutrophils 73.2 % (42.0-75.0); Hemoglobin 15.3 g/dL (12.0-16.0); Mean Corpuscular HGB CONC 34.4 g/dL (32.0-36.0); Mean Corpuscular Hemoglobin 34.3 pg (27.0-31.0); Mean Corpuscular Volume 99.7 fL (78.0-98.0); Mean Platelet Volume 7.6 fL (7.4-10.4); Platelet Count 206 thou/uL (130-400); RBC Distribution Width 12.1 % (11.5-14.5); Red Blood Cell (RBC) Count 4.45 mill/uL (4.20-5.40); White Blood Cell (WBC) Count 7.3 thou/uL (4.8-10.8)
[2020-07-22] MEDS ORDERED: Morphine 4 MG/ML VIAL ONE ×2 (15:32→17:48)
[2020-07-22 16:14] LABS: Albumin 3.6 g/dL (3.4-4.8)
[2020-07-22 16:15] LABS: Chloride 94 mmol/L (98-107); Potassium 3.7 mmol/L (3.5-5.1)
[2020-07-22 16:16] LABS: Calcium 8.9 mg/dL (7.8-10.44); Glucose 142 mg/dL (80-115)
[2020-07-22 16:17] LABS: Globulin 4.4 g/dL (2.4-3.5)
[2020-07-22 16:18] LABS: Anion Gap 18 mmol/L (10-20); Carbon Dioxide 20 mmol/L (23-31)
[2020-07-22 16:29] LABS: Sodium 128 mmol/L (136-145)
[2020-07-22 16:34] LABS: AST (SGOT) 226 U/L (5-34); Alkaline Phosphatase 261 U/L (40-110); BUN (Urea Nitrogen) Less than 4 mg/dL (9.8-20.1); Bilirubin, Total 0.5 mg/dL (0.2-1.2); CK (CPK) 73 U/L (29-168); Calc. Creatinine Clearance 0 mL/min (70-130)
[2020-07-22 16:35] LABS: ALT (SGPT) 103 U/L (8-55); Lipase 151 U/L (8-78)
[2020-07-22 16:41] LABS: Bilirubin Negative (Negative); Blood, Urine Negative (Negative); Clarity Clear (Clear); Glucose, Urine (Dipstick) Normal (Negative); Ketone, Urine Negative (Negative); Leukocyte Negative Leu/uL (Negative); Nitrite Negative (Negative); Protein, Urine (Dipstick) Negative (Neg-Trace); Specific Gravity, Urine 1.006 (1.002-1.036); Urobilinogen Normal mg/dL (Less than 2); pH, Urine 5.5 (5.0-9.0)
[2020-07-22] MEDS ORDERED: Thiamine HCl 200 MG/2 ML VIAL SLOW IVP SCH (18:00)
[2020-07-22] MEDS ORDERED: Folic Acid 1 MG, Multivitamins, Adult 10 ML in Dextrose 5 %-0.45 % NaCl 1,000 ML IV SCH (18:00)
[2020-07-22] MEDS ORDERED: Ondansetron ODT 4 MG TAB PO PRN (18:19)
[2020-07-22] MEDS ORDERED: Sodium Chloride 0.9% (PF) 10 ML VIAL FS PRN (18:45)
[2020-07-22 19:13] LABS: Cardiac Risk 1.8 (Less than 4.5)
[2020-07-22 19:21] LABS: Lactic Acid 2.8 mmol/L (0.5-2.2)
[2020-07-22 19:59] VITALS: BMI 17.5
[2020-07-22] MEDS: Sodium Chloride 0.9% 1,000 ML IV SCH (20:16)
[2020-07-22] MEDS: Nicotine 14 MG PATCH TD SCH (20:17)
[2020-07-22] MEDS: Ondansetron PF 4 MG/2 ML Vial IVP PRN (20:18)
[2020-07-22] MEDS: Morphine 4 MG/ML VIAL SLOW IVP PRN (20:18)
[2020-07-22 22:58] LABS: Anion Gap 13 mmol/L (10-20); BUN (Urea Nitrogen) Less than 4 mg/dL (9.8-20.1); Calc. Creatinine Clearance 73 mL/min (70-130); Carbon Dioxide 28 mmol/L (23-31); Chloride 93 mmol/L (98-107); Glucose 200 mg/dL (80-115); Potassium 3.3 mmol/L (3.5-5.1); Sodium 131 mmol/L (136-145)
[2020-07-23] MEDS: Morphine 4 MG/ML VIAL SLOW IVP PRN ×4 (02:02→20:49)
[2020-07-23] MEDS: Sodium Chloride 0.9% 1,000 ML IV SCH ×3 (03:58→23:08)
[2020-07-23 04:42] LABS: SARS-CoV-2 PCR by NAA Not Detected (NotDetected)
[2020-07-23 06:38] LABS: #Eosinphils 0.2 thou/uL (0.0-0.7); #Lymphocytes 2.6 thou/uL (1.20-3.40); #Monocytes 0.5 thou/uL (0.11-0.59); #Neutrophils 3.4 thou/uL (1.40-6.50); %Basophils 0.3 % (0.0-1.0); %Eosinophils 2.7 % (0.0-10.0); %Lymphocytes 38.9 % (21.0-51.0); %Monocytes 7.1 % (0.0-10.0); Mean Corpuscular HGB CONC 34.2 g/dL (32.0-36.0); Mean Corpuscular Hemoglobin 34.1 pg (27.0-31.0); Mean Corpuscular Volume 99.5 fL (78.0-98.0); Mean Platelet Volume 7.8 fL (7.4-10.4); Platelet Count 188 thou/uL (130-400); RBC Distribution Width 11.9 % (11.5-14.5); White Blood Cell (WBC) Count 6.7 thou/uL (4.8-10.8)
[2020-07-23 06:58] LABS: Lactic Acid 0.8 mmol/L (0.5-2.2)
[2020-07-23 07:01] LABS: ALT (SGPT) 71 U/L (8-55); AST (SGOT) 123 U/L (5-34); Albumin 3.1 g/dL (3.4-4.8); Alkaline Phosphatase 206 U/L (40-110); Anion Gap 13 mmol/L (10-20); BUN (Urea Nitrogen) Less than 4 mg/dL (9.8-20.1); Bilirubin, Total 0.8 mg/dL (0.2-1.2); Calc. Creatinine Clearance 79 mL/min (70-130); Calcium 8.4 mg/dL (7.8-10.44); Carbon Dioxide 28 mmol/L (23-31); Chloride 96 mmol/L (98-107); Globulin 3.8 g/dL (2.4-3.5); Glucose 130 mg/dL (80-115); Lipase 84 U/L (8-78); Potassium 3.2 mmol/L (3.5-5.1); Protein, Total 6.9 g/dL (5.8-8.1); Sodium 134 mmol/L (136-145)
[2020-07-23] MEDS: Ondansetron PF 4 MG/2 ML Vial IVP PRN ×2 (07:59→13:57)
[2020-07-23] MEDS ORDERED: Pantoprazole 40 MG VIAL IVP SCH ×2 (09:00)
[2020-07-23] MEDS: Magnesium Oxide 400 MG TAB PO SCH (20:47)
[2020-07-23] MEDS: Potassium Chloride 20 MEQ TAB PO SCH (20:47)
[2020-07-23] MEDS: Pantoprazole 40 MG GRANULES PACKET PO SCH (20:48)
[2020-07-23] MEDS: Sodium Chloride 1 GM TAB PO SCH (20:48)
[2020-07-23] MEDS: Nicotine 14 MG PATCH TD SCH (20:48)
[2020-07-24] MEDS: Morphine 4 MG/ML VIAL SLOW IVP PRN ×2 (03:32→08:27)
[2020-07-24] MEDS ORDERED: Potassium Chloride 40 MEQ in Premix Bag 1 BAG IVPB SCH (08:00)
[2020-07-24] MEDS: Amlodipine 10 MG TAB PO SCH (08:21)
[2020-07-24] MEDS: Magnesium Oxide 400 MG TAB PO SCH ×2 (08:21→20:20)
[2020-07-24] MEDS: Pantoprazole 40 MG GRANULES PACKET PO SCH ×2 (08:21→20:20)
[2020-07-24] MEDS: Potassium Chloride 20 MEQ TAB PO SCH ×2 (08:22→20:20)
[2020-07-24] MEDS: Folic Acid 1 MG TAB PO SCH (08:22)
[2020-07-24] MEDS: Sodium Chloride 1 GM TAB PO SCH ×3 (08:22→20:24)
[2020-07-24] MEDS: Thiamine 100 MG TAB PO SCH (08:22)
[2020-07-24] MEDS: Sodium Chloride 0.9% 1,000 ML IV SCH ×2 (09:06→15:00)
[2020-07-24] MEDS: traMADol HCl 50 MG TAB PO PRN ×2 (15:48→20:27)
[2020-07-24] MEDS: Nicotine 14 MG PATCH TD SCH (20:18)
[2020-07-25] MEDS: traMADol HCl 50 MG TAB PO PRN ×2 (01:56→10:03)
[2020-07-25] MEDS: Sodium Chloride 0.9% 1,000 ML IV SCH (01:56)
[2020-07-25 07:09] LABS: ALT (SGPT) 43 U/L (8-55); AST (SGOT) 66 U/L (5-34); Alkaline Phosphatase 159 U/L (40-110); Anion Gap 12 mmol/L (10-20); BUN (Urea Nitrogen) Less than 4 mg/dL (9.8-20.1); Bilirubin, Total 0.7 mg/dL (0.2-1.2); Calc. Creatinine Clearance 73 mL/min (70-130); Calcium 7.8 mg/dL (7.8-10.44); Carbon Dioxide 25 mmol/L (23-31); Chloride 97 mmol/L (98-107); Globulin 3.7 g/dL (2.4-3.5); Glucose 139 mg/dL (80-115); Potassium 3.3 mmol/L (3.5-5.1); Protein, Total 6.7 g/dL (5.8-8.1); Sodium 131 mmol/L (136-145)
[2020-07-25 07:23] VITALS: BP 108/76; TEMP 98.2
[2020-07-25] MEDS ORDERED: Potassium Chloride 20 MEQ TAB PO SCH (08:00)
[2020-07-25] MEDS: Pantoprazole 40 MG GRANULES PACKET PO SCH (08:13)
[2020-07-25] MEDS: Sodium Chloride 1 GM TAB PO SCH (08:16)
[2020-07-25] MEDS: Folic Acid 1 MG TAB PO SCH (08:16)
[2020-07-25] MEDS: Magnesium Oxide 400 MG TAB PO SCH (08:16)
[2020-07-25] MEDS: Amlodipine 10 MG TAB PO SCH (08:16)
[2020-07-25] MEDS: Thiamine 100 MG TAB PO SCH (08:16)
[2020-07-25] MEDS: Potassium Chloride 20 MEQ TAB PO SCH (08:16)
== END 2020-07-25 11:05 | disposition home or self-care (01) | DRG 439 ==
LOC: ERS 14:28 → T4-B 17:43
PROVIDERS: ADMIT Family Medicine; ATTEND Family Medicine
DX: K85.20 Alcohol induced acute pancreatitis without necrosis or infection (principal); E87.1 Hypo-osmolality and hyponatremia; E44.0 Moderate protein-calorie malnutrition; Z68.1 Body mass index [BMI] 19.9 or less, adult; I10 Essential (primary) hypertension; F41.9 Anxiety disorder, unspecified; J44.9 Chronic obstructive pulmonary disease, unspecified; K86.0 Alcohol-induced chronic pancreatitis; F10.10 Alcohol abuse, uncomplicated; R79.89 Other specified abnormal findings of blood chemistry; E87.6 Hypokalemia; E86.0 Dehydration; Z20.822 Contact with and (suspected) exposure to COVID-19; F17.210 Nicotine dependence, cigarettes, uncomplicated; Z86.711 Personal history of pulmonary embolism; Z88.0 Allergy status to penicillin; Z90.49 Acquired absence of other specified parts of digestive tract; Z98.51 Tubal ligation status; Z78.9 Other specified health status; Z71.6 Tobacco abuse counseling; Z71.41 Alcohol abuse counseling and surveillance of alcoholic
CPT/HCPCS: 36415; 71045; 74177; 76705; 80053; 80061; 81003; 82550; 83605; 83690; 83880; 83930; 83935; 84300; 84484; 85025; 87635; 93005; 96374; 96375; 96376; C9113; J2270; J2405; J3411; J3480; J7042; U0003; U0005